=== PATIENT | female | born 1975 | race Caucasian/White ===

== ENCOUNTER 2016-12-19 16:02 | Emergency (ER) | payer MEDICARE, MEDICAID ==
[2016-12-19] MEDS ORDERED: Metoclopramide 10 MG/2 ML SDV IVPUSH ONE (16:23)
[2016-12-19] MEDS ORDERED: Ketorolac 30 MG/ML SDV IVPUSH ONE (16:23)
[2016-12-19] MEDS ORDERED: Sodium Chloride 0.9% 1,000 ML IV ONE (16:23)
--- NOTE | 2016-12-19 16:36 | EDM.PDOC ---
ED HPI HEADACHE COMPLAINT - General Chief Complaint: Headache Stated Complaint: ALTAGRACIA MCARTHUR Time Seen by Provider: 12/19/16 16:20 Source of Information: Reports: Patient History Limitations: Reports: No limitations - History of Present Illness INITIAL COMMENTS - FREE TEXT/NARRATIVE: This 41 yo female patient reported to the ED with a migraine headache and numerous abscesses. The patient reports she has been seen by Dr. Ramírez for the abscesses about 1 week ago. The patient reports she has had some testing done by neurology, but she has not seen a neurologist for her migraine headaches. The patient reports she has an appointment with neurology on . The patient reports she has not eaten today. The patient reports she took a [place] this morning, but has continued to have a headache. The patient reports she has been seen for her abscesses by dermatology, but they are not helping her. 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) ([place]) - Related Data Allergies/ADRs: Allergies Allergy/AdvReac Type Severity Reaction Status Date / Time diphenhydramine HCl Allergy Anxiety Verified 12/19/16 16:08 [From Benadryl] penicillin Allergy Airway Verified 12/19/16 16:08 Tightness Home Meds: Home Meds ALPRAZolam [Xanax] 2 mg PO TID PRN 06/03/15 [History] metFORMIN [Glucophage] 1,000 mg PO BID 06/03/15 [History] Sertraline HCl [Zoloft] 150 mg PO DAILY 01/11/16 [History] Insulin Regular, Human [HumuLIN R] 0.2 mm SQ TID 02/12/16 [History] Cyclobenzaprine [Flexeril] 10 mg PO Q8H PRN 12/19/16 [History] Hydrocodone/Acetaminophen [Hydrocodon-Acetaminophen 5-325] 1 tab PO Q8H PRN [History] Past Medical History - Past Health History Medical/Surgical History: Denies Medical/Surgical History HEENT History: Reports: None Cardiovascular History: Reports: Hypertension Respiratory History: Reports: Intubation, previous Gastrointestinal History: Reports: Cholelithiasis, Other (see below) Other Gastrointestinal History: liver abscess Genitourinary History: Reports: Diabetic nephropathy 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 Musculoskeletal History: Reports: Fibromyalgia Neurological History: Reports: Migraines, Vertigo Psychiatric History: Reports: Anxiety, Depression, Panic attack Endocrine/Metabolic History: Reports: Diabetes, type II, IDDM, Obesity/BMI 30+, Other (see below) Other Endocrine/Metabolic History: Is on UV insulin bid. does not know the exact name. Hematologic History: Reports: None Immunologic History: Reports: None Oncologic (Cancer) History: Reports: None Dermatologic History: Reports: Cellulitis, Other (see below) Other Dermatologic History: skin abscess. hidradanitis suppurtiva - Infectious Disease History Infectious Disease History: Reports: MRSA - Past Surgical History HEENT Surgical History: Reports: None GI Surgical History: Reports: Cholecystectomy Female Surgical History: Reports: Hysterectomy Social & Family History - Family History Family Medical History: Noncontributory Cardiac: Reports: Hypertension Other Cardiac Family History: Mother Respiratory: Reports: COPD Other Respiratory Family Hisory: Mother OBGYN: Reports: Endometriosis Other OBGYN Family History: Mother Endocrine/Metabolic: Reports: Diabetes, type II Other Endocrine/Metabolic Family History: mother - Tobacco Use Smoking Status *Q: Current Every Day Smoker Years of Tobacco use: 30 Packs/Tins Daily: 1 Used Tobacco, but Quit: No Second Hand Smoke Exposure: Yes - Caffeine Use Caffeine Use: Reports: Coffee, Soda - Recreational Drug Use Recreational Drug Use: No - Sexual History Sexual History: Reports: Sexually active - Living Situation & Occupation Living situation: Reports: , with family Occupation: unemployed ED ROS GENERAL - Review of Systems Review Of Systems: ROS reveals no pertinent complaints other than HPI. - Physical Exam Exam: See Below Exam Limited By: No limitations General Appearance: alert, WD/WN, moderate distress Eye Exam: bilateral eye: EOMI, normal inspection, PERRL Ears: normal external exam, normal canal, hearing grossly normal, normal TMs Nose: normal inspection, normal mucosa, no blood Throat/Mouth: Normal inspection, Normal lips, Normal teeth, Normal gums, Normal oropharynx, Normal voice, No airway compromise Head Exam: atraumatic Neck: normal inspection, supple, non-tender, full range of motion Respiratory/Chest: no respiratory distress, lungs clear, normal breath sounds, no accessory muscle use, chest non-tender Cardiovascular: normal peripheral pulses, regular rate, rhythm, no edema, no gallop, no JVD, no murmur, no rub GI/Abdominal: normal bowel sounds, soft, non tender, no organomegaly, no distention, no abnormal bruit, no mass, other (morbid obesity) (Female) Exam: Deferred Rectal (Female) Exam: Deferred Neuro Exam (Abbreviated): alert, oriented, CN II-XII intact, normal cognition, normal gait, normal reflexes, no motor/sensory deficits Extremities: normal inspection, normal range of motion, non-tender, no pedal edema, normal capillary refill Psychiatric: normal affect, normal mood Course - Vital Signs Last Recorded V/S: Last Vital Signs Temp 37.2 C 12/19/16 16:17 Pulse 101 H 12/19/16 16:17 Resp BP Pulse Ox - Orders/Labs/Meds Orders: Active Orders 24 hr Category Date Time Status Sodium Chloride 0.9% [Normal Saline] 1,000 ml Med 12/19/16 16:23 Active IV .BOLUS Medication Orders Sodium Chloride (Normal Saline) 1,000 mls @ 999 mls/hr IV .BOLUS ONE Stop: 12/19/16 17:23 Last Admin: 12/19/16 16:46 Dose: 999 mls/hr Meds: Medications Generic Name Dose Route Start Last Admin Trade Name Freq PRN Reason Stop Dose Admin Sodium Chloride 1,000 mls @ 999 mls/hr 12/19/16 16:23 12/19/16 16:46 Normal Saline IV 12/19/16 17:23 999 mls/hr .BOLUS ONE Administration Discontinued Medications Generic Name Dose Route Start Last Admin Trade Name Freq PRN Reason Stop Dose Admin Ketorolac Tromethamine 30 mg 12/19/16 16:23 12/19/16 16:47 Toradol IVPUSH 12/19/16 16:24 30 mg ONETIME ONE Administration Metoclopramide HCl 10 mg 12/19/16 16:23 12/19/16 16:46 Reglan IVPUSH 12/19/16 16:24 10 mg ONETIME ONE Administration - Re-Assessments/Exams Free Text/Narrative Re-Assessment/Exam: 12/19/16 17:21 The patient reports her headache is better with the fluid, Reglan and Toradol. Departure - Departure Time of Disposition: 17:22 Disposition: Home, Self-Care 01 Condition: fair Clinical Impression: Migraine Instructions: Recurrent Migraine Headache, [id number] Forms: ED Department Discharge Care Plan Goals: The patient was advised of the examination results during the visit. The patient was given a liter of IV fluid, IV Reglan and IV Toradol for migraine relief. The patient was encouraged to continue to take her prescription medications as prescribed. If the patient has any additional symptoms or concerns, the patient should follow-up with her primary care facility or return to the emergency department. - My Orders Last 24 Hours: My Active Orders 12/19/16 16:23 Sodium Chloride 0.9% [Normal Saline] 1,000 ml IV .BOLUS - Assessment/Plan Last 24 Hours: My Active Orders 12/19/16 16:23 Sodium Chloride 0.9% [Normal Saline] 1,000 ml IV .BOLUS
== END 2016-12-19 17:39 | disposition home or self-care (01) ==
LOC: DL.ED 16:02
DX: G43.909 Migraine, unspecified, not intractable, without status migrainosus (principal); I10 Essential (primary) hypertension; E11.21 Type 2 diabetes mellitus with diabetic nephropathy; F41.9 Anxiety disorder, unspecified; F32.9 Major depressive disorder, single episode, unspecified; E66.9 Obesity, unspecified; F17.210 Nicotine dependence, cigarettes, uncomplicated; Z79.4 Long term (current) use of insulin; Z79.84 Long term (current) use of oral hypoglycemic drugs; Z90.49 Acquired absence of other specified parts of digestive tract; Z90.710 Acquired absence of both cervix and uterus; Z88.0 Allergy status to penicillin
CPT/HCPCS: 96361; 96374; 96375; 99282; J1885; J2765; J7030; 99284

== ENCOUNTER 2017-02-15 17:27 | Emergency (ER) | payer MEDICARE, MEDICAID ==
[~2017-02-15 17:27] MED LIST: Lidocaine 2% Viscous Solution 15 ML Cup PO ONE
[2017-02-15 17:58] VITALS: BP 104/87
[2017-02-15] MEDS ORDERED: Lidocaine 2% Viscous Solution 15 ML Cup ONE (19:03)
--- NOTE | 2017-02-15 19:05 | EDM.PDOC ---
ED HPI ENT - General Chief Complaint: ENT Problem Stated Complaint: MOUTH PAIN GOING UP INTO NASALS Time Seen by Provider: 02/15/17 18:58 Source of Information: Reports: Patient History Limitations: Reports: No limitations - History of Present Illness INITIAL COMMENTS - FREE TEXT/NARRATIVE: c/o pain in nose and tooth pain. been to [facility] gotten hydrocodone for 28 days on 01-31-17. states doesn;t want pain meds but wants something for the pain. suggested viscous lido' to Pt. - Related Data Allergies/ADRs: Allergies Allergy/AdvReac Type Severity Reaction Status Date / Time bee venom protein (honey bee) Allergy Airway Verified 02/15/17 17:50 Tightness diphenhydramine HCl Allergy Anxiety Verified 12/19/16 16:08 [From Benadryl] penicillin Allergy Airway Verified 12/19/16 16:08 Tightness Home Meds: Home Meds ALPRAZolam [Xanax] 2 mg PO TID PRN 06/03/15 [History] Sertraline HCl [Zoloft] 200 mg PO BEDTIME 01/11/16 [History] Cyclobenzaprine [Flexeril] 10 mg PO Q8H PRN 12/19/16 [History] Hydrocodone/Acetaminophen [Hydrocodon-Acetaminophen 5-325] 1 tab PO TID PRN [History] Fluconazole [Diflucan 10 MG/ML Susp] 10 mg PO .3DAYS PRN 02/15/17 [History] Ibuprofen 800 mg PO Q8HR PRN 02/15/17 [History] Non-Formulary Medication [NF Drug] 1.5 ml SQ TID 02/15/17 [History] Past Medical History - Past Health History Medical/Surgical History: Denies Medical/Surgical History HEENT History: Reports: Other (see below) Other HEENT History: astygmatisum Cardiovascular History: Reports: Hypertension Respiratory History: Reports: Bronchitis, recurrent, Intubation, previous Gastrointestinal History: Reports: Cholelithiasis, Other (see below) Other Gastrointestinal History: liver abscess Genitourinary History: Reports: Diabetic nephropathy 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 Musculoskeletal History: Reports: Fibromyalgia Neurological History: Reports: Migraines, Vertigo Psychiatric History: Reports: Anxiety, Depression, Panic attack Endocrine/Metabolic History: Reports: Diabetes, type II, IDDM, Obesity/BMI 30+, Other (see below) Other Endocrine/Metabolic History: Is on UV insulin bid. does not know the exact name. Hematologic History: Reports: None Immunologic History: Reports: None Oncologic (Cancer) History: Reports: None Dermatologic History: Reports: Cellulitis, Other (see below) Other Dermatologic History: skin abscess. hidradanitis suppurtiva - Infectious Disease History Infectious Disease History: Reports: Chicken pox, MRSA - Past Surgical History GI Surgical History: Reports: Cholecystectomy Female Surgical History: Reports: Hysterectomy Social & Family History - Family History Family Medical History: Noncontributory Cardiac: Reports: Hypertension Other Cardiac Family History: Mother Respiratory: Reports: COPD Other Respiratory Family Hisory: Mother OBGYN: Reports: Endometriosis Other OBGYN Family History: Mother Endocrine/Metabolic: Reports: Diabetes, type II Other Endocrine/Metabolic Family History: mother - Tobacco Use Smoking Status *Q: Current Every Day Smoker Years of Tobacco use: 30 Packs/Tins Daily: 1 Used Tobacco, but Quit: No Second Hand Smoke Exposure: Yes - Caffeine Use Caffeine Use: Reports: Coffee, Soda - Recreational Drug Use Recreational Drug Use: No - Sexual History Sexual History: Reports: Sexually active - Living Situation & Occupation Living situation: Reports: , with family Occupation: unemployed ED ROS ENT - Review of Systems Review Of Systems: ROS reveals no pertinent complaints other than HPI. ED EXAM, ENT - Physical Exam Exam: See Below Exam Limited By: No limitations General Appearance: alert, WD/WN, mild distress, other (tooth & nose pain) Ears: hearing grossly normal Nose: other (right nostril small boil @ entrance. no cellulitis noted) Mouth/Throat: Dental pain, Dental tenderness Head: atraumatic Neck: non-tender, full range of motion Respiratory/Chest: no respiratory distress Cardiovascular: regular rate, rhythm GI/Abdominal: soft, non tender Neurological: alert, oriented, normal cognition, normal gait, no motor/sensory deficits Psychiatric: flat affect Skin: Warm, Dry Lymphatic: no adenopathy Course - Vital Signs Last Recorded V/S: Last Vital Signs Temp 36.8 C 02/15/17 17:54 Pulse 92 02/15/17 17:54 Resp 20 02/15/17 17:54 BP 104/87 02/15/17 17:54 Pulse Ox 100 02/15/17 17:54 Departure - Departure Time of Disposition: 19:01 Disposition: Home, Self-Care 01 Condition: good Clinical Impression: Boil, nose, Tooth decay Instructions: Dental Caries, [id number] Forms: ED Department Discharge Additional Instructions: 1) continue pain meds 2) follow up with dentist and clinic 3) avoid solid foods, candies, sodas rx togo: viscous lidocaine apply prn rx given: clindamycin 150mg qid x 40
== END 2017-02-15 19:12 | disposition home or self-care (01) ==
LOC: DL.ED 17:27
DX: K02.9 Dental caries, unspecified (principal); J34.0 Abscess, furuncle and carbuncle of nose; I10 Essential (primary) hypertension; E11.21 Type 2 diabetes mellitus with diabetic nephropathy; F41.9 Anxiety disorder, unspecified; F32.9 Major depressive disorder, single episode, unspecified; E66.9 Obesity, unspecified; F17.210 Nicotine dependence, cigarettes, uncomplicated; Z91.030 Bee allergy status; Z88.0 Allergy status to penicillin; Z88.8 Allergy status to other drugs, medicaments and biological substances; Z79.899 Other long term (current) drug therapy; Z90.49 Acquired absence of other specified parts of digestive tract; Z90.710 Acquired absence of both cervix and uterus; Z98.51 Tubal ligation status
CPT/HCPCS: 99282; 99283; A9270-GY

== ENCOUNTER 2017-04-08 17:03 | Emergency (ER) | payer MEDICARE, MEDICAID ==
[2017-04-08 17:15] VITALS: BP 143/70
--- NOTE | 2017-04-08 17:46 | EDM.PDOC ---
ED HPI GENERAL MEDICAL PROBLEM - General Chief Complaint: Skin Complaint Stated Complaint: ABSCESS ON HEAD Time Seen by Provider: 04/08/17 17:40 Source of Information: Reports: Patient History Limitations: Reports: No Limitations - History of Present Illness INITIAL COMMENTS - FREE TEXT/NARRATIVE: Pt states that she has had an "abscess" to her head for the past week. States that she was being treated for multiple abscesses. c/o pain to the right side of her face and "twitching" of her right eye. denies other pain elsewhere Onset Date: 04/02/17 Duration: Getting Worse Location: Reports: Face Quality: Reports: Ache, Burning, Throbbing Severity: Severe Improves with: Reports: None Worsens with: Reports: Movement Right Face Pain Score (Numeric/FACES): 7 - Related Data Allergies Allergy/AdvReac Type Severity Reaction Status Date / Time bee venom protein (honey bee) Allergy Airway Verified 04/08/17 17:08 Tightness diphenhydramine HCl Allergy Anxiety Verified 04/08/17 17:08 [From Benadryl] penicillin Allergy Airway Verified 04/08/17 17:08 Tightness Home Meds: Home Meds ALPRAZolam [Xanax] 2 mg PO TID PRN 06/03/15 [History] Sertraline HCl [Zoloft] 200 mg PO BEDTIME 01/11/16 [History] Cyclobenzaprine [Flexeril] 10 mg PO Q8H PRN 12/19/16 [History] Hydrocodone/Acetaminophen [Hydrocodon-Acetaminophen 5-325] 1 tab PO TID PRN [History] Ibuprofen 800 mg PO Q8HR PRN 02/15/17 [History] Adalimumab [Humira] 04/08/17 [History] Adalimumab [Humira] 40 mg WEEKLY 04/08/17 [History] Gabapentin [Gabapentin] 04/08/17 [History] Insulin Regular, Human [Humulin R] 04/08/17 [History] Minocycline [Minocin] 100 mg PO BID 04/08/17 [History] Past Medical History - Past Health History Medical/Surgical History: Denies Medical/Surgical History HEENT History: Reports: Other (See Below) Other HEENT History: astygmatisum Cardiovascular History: Reports: Hypertension Respiratory History: Reports: Bronchitis, Recurrent, Intubation, Previous Gastrointestinal History: Reports: Cholelithiasis Other Gastrointestinal History: liver abscess Genitourinary History: Reports: Diabetic Nephropathy 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 Musculoskeletal History: Reports: Fibromyalgia Neurological History: Reports: Migraines, Vertigo Psychiatric History: Reports: Anxiety, Depression, Panic Attack Endocrine/Metabolic History: Reports: Diabetes, Type II, IDDM, Obesity/BMI 30+, Other (See Below) Other Endocrine/Metabolic History: Is on UV insulin bid. does not know the exact name. Hematologic History: Reports: None Immunologic History: Reports: None Oncologic (Cancer) History: Reports: None Dermatologic History: Reports: Cellulitis, Other (See Below) Other Dermatologic History: skin condition - Infectious Disease History Infectious Disease History: Reports: Chicken Pox, MRSA - Past Surgical History GI Surgical History: Reports: Cholecystectomy Female Surgical History: Reports: Hysterectomy Social & Family History - Family History Family Medical History: Noncontributory Cardiac: Reports: Hypertension Other Cardiac Family History: Mother Respiratory: Reports: COPD Other Respiratory Family Hisory: Mother OBGYN: Reports: Endometriosis Other OBGYN Family History: Mother Endocrine/Metabolic: Reports: Diabetes, type II Other Endocrine/Metabolic Family History: mother - Tobacco Use Smoking Status *Q: Current Every Day Smoker Years of Tobacco use: 25 Packs/Tins Daily: 1 Used Tobacco, but Quit: No Second Hand Smoke Exposure: Yes - Caffeine Use Caffeine Use: Reports: Coffee, Soda - Recreational Drug Use Recreational Drug Use: No - Sexual History Sexual History: Reports: Sexually Active - Living Situation & Occupation Living situation: Reports: , with Family Occupation: Unemployed ED ROS GENERAL - Review of Systems Review Of Systems: See Below Skin: Reports: Erythema, Lesions (scab to right forehead at hair line) ED EXAM, SKIN/RASH Exam: See Below Exam Limited By: No Limitations General Appearance: Alert, WD/WN, No Apparent Distress Eye Exam: Bilateral Eye: Normal Inspection, PERRL Ears: Normal External Exam, Normal Canal, Hearing Grossly Normal, Other ( effusion r ear) Nose: Normal Inspection, Normal Mucosa, No Blood Throat/Mouth: Normal Inspection, Normal Lips, Normal Teeth, Normal Gums, Normal Oropharynx, Normal Voice, No Airway Compromise Head: Facial Swelling Neck: Normal Inspection Respiratory/Chest: No Respiratory Distress, Lungs Clear, Normal Breath Sounds, No Accessory Muscle Use, Chest Non-Tender Neurological: Alert, Oriented, CN II-XII Intact, Normal Cognition, Normal Gait, Normal Reflexes, No Motor/Sensory Deficits Skin: Warm, Dry, Erythema, Wound/Incision Associated features: Tenderness, Induration, Inflammation, Crusting Course - Vital Signs Last Recorded V/S: Last Vital Signs Temp 97.9 F 04/08/17 17:13 Pulse 88 04/08/17 17:13 Resp 18 04/08/17 17:13 BP 143/70 H 04/08/17 17:13 Pulse Ox 100 04/08/17 17:13 Departure - Departure Time of Disposition: 17:54 Disposition: Home, Self-Care 01 Condition: Good Clinical Impression: Trigeminal neuralgia of right side of face - Discharge Information Instructions: Trigeminal Neuralgia Forms: ED Department Discharge Additional Instructions: Take the medication as prescribed twice daily. Take the hydrocodone no more than 4 times a day with this new medication. Follow up with your PCP in 1 week. Return sooner for any worsening symptoms.
[2017-04-08] MEDS ORDERED: Acetaminophen/HYDROcodone 325-5 MG Tab PO ONE (17:53)
== END 2017-04-08 18:06 | disposition home or self-care (01) ==
LOC: DL.ED 17:03
DX: G50.0 Trigeminal neuralgia (principal); I10 Essential (primary) hypertension; E11.21 Type 2 diabetes mellitus with diabetic nephropathy; G43.909 Migraine, unspecified, not intractable, without status migrainosus; F41.9 Anxiety disorder, unspecified; F32.9 Major depressive disorder, single episode, unspecified; E11.9 Type 2 diabetes mellitus without complications; E66.9 Obesity, unspecified; Z90.710 Acquired absence of both cervix and uterus; Z91.030 Bee allergy status; Z88.0 Allergy status to penicillin; Z88.8 Allergy status to other drugs, medicaments and biological substances; Z79.4 Long term (current) use of insulin; Z79.899 Other long term (current) drug therapy; Z90.49 Acquired absence of other specified parts of digestive tract
CPT/HCPCS: 99283; A9270

== ENCOUNTER 2017-04-09 10:56 | Inpatient (IN) | payer MEDICARE, MEDICAID ==
[2017-04-09] MEDS ORDERED: Acetaminophen/HYDROcodone 325-10 MG Tab PO PRN (12:45)
--- NOTE | 2017-04-09 12:59 | PCM.HP ---
H&P History of Present Illness - General Date of Service: 04/09/17 Admit Problem/Dx: Admission Diagnosis/Problem Admission Diagnosis/Problem Periorbital cellulitis Source of Information: Patient History Limitations: Reports: No Limitations - History of Present Illness Initial Comments - Free Text/Narative: 42-year-old female was best medical history of MRSA, Hidradenitis suppurativa, fibroplasia, diabetes mellitus type 2, nicotine abuse, panic attacks, migraine, liver abscesses presented to the hospital from clinic for having periorbital colitis on the right side. Patient stated that 10 days ago she was having about 10 boils in her body located under her left breast, gluteal area, going area, abdomen. On 04/04/17 patient developed a pimple on the right frontal scalp. She squeezed it and get some pus out. 3 days later she started having swelling or owns a pimple. Patient was having drainage from the above-mentioned boils on the body. The swelling spread about the right eye and started having pain on the right forehead, face, and jaw. She denies fever, chills, sweats, nausea, vomiting, chest pain, cough, shortness breath, abdominal pain, urinary symptoms , any other symptoms or concerns. No blood work was done at the clinic today but on 04/06/2017, at that time CBC was normal. Glucose was 419. Creatinine 0.8. Hemoglobin A1c 10.7. Patient stated that it's difficult for her to have IV insertion and her IVs do not tolerate regular infusion so she usually into up having PICC line. She was started on Humira few weeks ago and last week she had her third dose. She is on chronic antibiotics for her Hidradenitis suppurativa. Her oral clindamycin was changed a few weeks ago to oral minocycline 50 mg twice a day and one week ago was increased to 100 mg twice a day. Patient stated that she has pain was right eye motion but denies vision change. Face Pain Score (Numeric/FACES): 9 - Related Data Allergies/Adverse Reactions: Allergies Allergy/AdvReac Type Severity Reaction Status Date / Time bee venom protein (honey bee) Allergy Airway Verified 04/09/17 11:23 Tightness diphenhydramine HCl Allergy Anxiety Verified 04/09/17 11:23 [From Benadryl] penicillin Allergy Airway Verified 04/09/17 11:23 Tightness Home Medications: Home Meds ALPRAZolam [Xanax] 2 mg PO TID PRN 06/03/15 [History] Sertraline HCl [Zoloft] 200 mg PO BEDTIME 01/11/16 [History] Cyclobenzaprine [Flexeril] 10 mg PO Q8H PRN 12/19/16 [History] Hydrocodone/Acetaminophen [Hydrocodon-Acetaminophen 5-325] 1 tab PO TID PRN [History] Ibuprofen 800 mg PO Q8HR PRN 02/15/17 [History] Adalimumab [Humira] 40 mg WEEKLY 04/08/17 [History] Gabapentin 300 mg PO DAILY 04/08/17 [History] Insulin Regular, Human [Humulin R] 0.25 ml SUBCUT BIDMEALS 04/08/17 [History] Minocycline [Minocin] 100 mg PO BID 04/08/17 [History] Acetaminophen [Acetaminophen Extra Strength] 1,000 mg PO Q6H PRN 04/09/17 [ History] Clindamycin Phosphate [Cleocin T] 1 applic TP BID 04/09/17 [History] Fluconazole [Diflucan] 150 mg PO Q72H 04/09/17 [History] metFORMIN [Glucophage] 1,000 mg PO BIDMEALS 04/09/17 [History] Past Medical History - Past Health History Medical/Surgical History: Denies Medical/Surgical History HEENT History: Reports: Other (See Below) Other HEENT History: astygmatism Cardiovascular History: Reports: None Respiratory History: Reports: Bronchitis, Recurrent Gastrointestinal History: Reports: Cholelithiasis Other Gastrointestinal History: liver abscess x5 Genitourinary History: Reports: Diabetic Nephropathy 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 Musculoskeletal History: Reports: Fibromyalgia Neurological History: Reports: Migraines, Neuropathy, Diabetic, Neuropathy, Peripheral, Vertigo Psychiatric History: Reports: Anxiety, Depression, Panic Attack Endocrine/Metabolic History: Reports: Diabetes, Type II, IDDM, Obesity/BMI 30+, Other (See Below) Other Endocrine/Metabolic History: Is on UV insulin bid. does not know the exact name. Hematologic History: Reports: None, Blood Transfusion(s) Immunologic History: Reports: None Oncologic (Cancer) History: Reports: None Dermatologic History: Reports: Cellulitis, Other (See Below) Other Dermatologic History: skin condition - Infectious Disease History Infectious Disease History: Reports: MRSA - Past Surgical History GI Surgical History: Reports: Cholecystectomy Female Surgical History: Reports: Hysterectomy Social & Family History - Family History Family Medical History: Noncontributory Cardiac: Reports: Hypertension Other Cardiac Family History: Mother Respiratory: Reports: COPD Other Respiratory Family Hisory: Mother OBGYN: Reports: Endometriosis Other OBGYN Family History: Mother Endocrine/Metabolic: Reports: Diabetes, type II Other Endocrine/Metabolic Family History: mother - Tobacco Use Smoking Status *Q: Current Every Day Smoker Years of Tobacco use: 30 Packs/Tins Daily: 1 Used Tobacco, but Quit: No Second Hand Smoke Exposure: Yes - Caffeine Use Caffeine Use: Reports: Coffee, Soda - Recreational Drug Use Recreational Drug Use: No - Sexual History Sexual History: Reports: Sexually Active - Living Situation & Occupation Living situation: Reports: , with Family Occupation: Unemployed H&P Review of Systems - Review of Systems: Review Of Systems: See Below General: Reports: No Symptoms HEENT: Reports: Headaches. Denies: Ear Pain, Eye Pain, Rhinitis, Post Nasal Drip, Sinus Congestion, Sore Throat, Visual Changes Pulmonary: Reports: No Symptoms Cardiovascular: Reports: No Symptoms Gastrointestinal: Reports: No Symptoms Genitourinary: Reports: No Symptoms Musculoskeletal: Reports: No Symptoms Skin: Denies: Cyanosis, Jaundice, Pruritis Psychiatric: Reports: No Symptoms Neurological: Reports: No Symptoms Hematologic/Lymphatic: Reports: No Symptoms Immunologic: Reports: No Symptoms Exam - Exam Exam: See Below - Vital Signs Weight: 124.103 kg - Exam General: Alert, Oriented HEENT: Conjunctiva Clear, EACs Clear, EOMI, Hearing Intact, Mucosa Moist & [place] , Nares Patent, Normal Nasal Septum, Posterior Pharynx Clear, Pupils Equal, Pupils Reactive, TMs Clear, Other (Right frontal scalp shows scabbed erythematous area surrounded with swelling extending to the right eyebrow was markedly tenderness. There is tenderness as well above the right maxillary sinus.). No: Scleral Icterus Neck: Supple, Trachea Midline Lungs: Clear to Auscultation, Normal Respiratory Effort Cardiovascular: Regular Rate, Regular Rhythm Abdomen: Normal Bowel Sounds, Soft, Pelvis Stable (Female) Exam: Deferred Rectal (Female) Exam: Deferred Back Exam: Normal Inspection, Full Range of Motion Extremities: Normal Inspection, Normal Pulses. No: Cyanosis, Edema Skin: Other (Multiple scarring lesions with sporadic induration under left breast, left gluteal area, pubic area. There was some purulent drainage from the boil under the left breast. However I did not appreciate surrounding cellulitis) *Q Meaningful Use (ADM) - VTE *Q VTE Criteria *Q: - Stroke *Q Stroke Criteria *Q: - AMI *Q AMI Criteria *Q: - Problem List (1) Fibromyalgia SNOMED Code(s): 261698311 ICD Code: M79.7 - FIBROMYALGIA Status: Chronic Current Visit: Yes (2) Periorbital cellulitis of right eye SNOMED Code(s): 361500571 ICD Code: L03.213 - PERIORBITAL CELLULITIS Status: Acute Priority: High Current Visit: Yes (3) Hidradenitis suppurativa SNOMED Code(s): 63851531 ICD Code: L73.2 - HIDRADENITIS SUPPURATIVA Status: Acute Current Visit: No (4) Migraine SNOMED Code(s): 11255119 ICD Code: G43.909 - MIGRAINE, UNSP, NOT INTRACTABLE, WITHOUT STATUS MIGRAINOSUS Status: Chronic Current Visit: No Qualifiers: Migraine type: unspecified Status migrainosus presence: with status migrainosus Intractability: intractable Qualified Code(s): G43.911 - Migraine, unspecified, intractable, with status migrainosus (5) Uncontrolled type 2 diabetes mellitus SNOMED Code(s): 61555251, 667031427 ICD Code: E11.65 - TYPE 2 DIABETES MELLITUS WITH HYPERGLYCEMIA Status: Chronic Current Visit: No Problem List Initiated/Reviewed/Updated: Yes Orders Last 24hrs: Active Orders 24 hr Category Date Time Status Patient Status [ADT] Routine ADT 04/09/17 12:49 Ordered Oxygen Therapy [RC] PRN Care 04/09/17 12:49 Ordered VTE/DVT Education [RC] PER UNIT ROUTINE Care 04/09/17 12:49 Ordered Vital Signs [RC] Q4H Care 04/09/17 12:49 Ordered Acetaminophen/HYDROcodone [[place] 325-10 MG] Med 04/09/17 12:45 Ordered 1 tab PO Q4H PRN Resuscitation Status Routine Resus Stat 06/19/17 12:49 Ordered Medication Orders Hydrocodone Bitart/Acetaminophen ([place] 325-10 Mg) 1 tab PO Q4H PRN PRN Reason: Pain Assessment/Plan Comment:: Right periorbital cellulitis Considering patient history of diabetes mellitus, being on Humira, being already on oral antibiotics, having difficulty IV access and possibly the need for PICC line and prolonged IV antibiotic, I recommended being transferred to [facility] where she can have specialist/infectious disease seen here and possibly having PICC line there. At this time I do not appreciate sepsis sign so I deferred giving any antibiotics until being evaluated at [facility] The rest of her problem list to be addressed at [facility] Patient was accepted kindly by Dr. Phelps. It is okay transferring by private car however I stressed that she needs to go right away to [facility] hops[facility] otherwise we will can send her by ambulance. Patient and her significant other stressed they are going to get their by their car without delay.
[2017-04-09 13:08] VITALS: BP 115/77
== END 2017-04-09 14:00 | DRG 603 ==
LOC: UNDOADMIN 10:56 → DL.MS 10:56 → EEVIPCON 12:49 → DL.MS 12:49
PROVIDERS: ADMIT Family Medicine; ATTEND Family Medicine
DX: L03.213 Periorbital cellulitis (principal); M79.7 Fibromyalgia; L73.2 Hidradenitis suppurativa; G43.911 Migraine, unspecified, intractable, with status migrainosus; E11.65 Type 2 diabetes mellitus with hyperglycemia; E11.40 Type 2 diabetes mellitus with diabetic neuropathy, unspecified; F17.200 Nicotine dependence, unspecified, uncomplicated; F41.8 Other specified anxiety disorders; Z88.0 Allergy status to penicillin; Z88.8 Allergy status to other drugs, medicaments and biological substances; Z79.899 Other long term (current) drug therapy; Z79.4 Long term (current) use of insulin
CPT/HCPCS: A9270-GY

== ENCOUNTER 2017-07-04 19:48 | Emergency (ER) | payer MEDICARE, MEDICAID ==
[2017-07-04] MEDS ORDERED: Clindamycin HCl 150 MG Cap PO ONE (20:16)
[2017-07-04 21:05] VITALS: BP 113/85
[2017-07-04 21:08] LABS: CHLORIDE,CL 98 mmol/L (101-111); SODIUM,NA 133 mmol/L (135-145)
[2017-07-04] MEDS ORDERED: Insulin Regular, Human 100 Units/ML 3 ML Vial SUBCUT ONE (21:15)
--- NOTE | 2017-07-04 21:24 | EDM.PDOC ---
ED HPI GENERAL MEDICAL PROBLEM - General Chief Complaint: Lower Extremity Injury/Pain Stated Complaint: RIGHT TOE SWOLLEN AND HURTS UP FOOT [id number] Time Seen by Provider: 07/04/17 20:00 Source of Information: Reports: Patient History Limitations: Reports: No Limitations - History of Present Illness INITIAL COMMENTS - FREE TEXT/NARRATIVE: C/o pain to right great toe. Pedicure on Sunday, increasing pain to toe now today with redness pain in forefoot and drainage noted aroun nail. Diabetic, noting blood sugars for past 2 days have been 300-400 and had been recently controlled in 100-200 range. Hx MRSA. Location: Reports: Lower Extremity, Right Quality: Reports: Throbbing Severity: Moderate - Related Data Allergies Allergy/AdvReac Type Severity Reaction Status Date / Time bee venom protein (honey bee) Allergy Airway Verified 07/04/17 20:00 Tightness diphenhydramine HCl Allergy Anxiety Verified 07/04/17 20:00 [From Benadryl] penicillin Allergy Airway Verified 07/04/17 20:00 Tightness Home Meds: Home Meds ALPRAZolam [Xanax] 2 mg PO TID PRN 06/03/15 [History] Sertraline HCl [Zoloft] 200 mg PO BEDTIME 01/11/16 [History] Cyclobenzaprine [Flexeril] 10 mg PO Q8H PRN 12/19/16 [History] Hydrocodone/Acetaminophen [Hydrocodon-Acetaminophen 5-325] 2 tab PO TID PRN [History] Ibuprofen 800 mg PO Q8HR PRN 02/15/17 [History] Adalimumab [Humira] 40 mg SUBCUT WEEKLY 04/08/17 [History] Gabapentin 300 mg PO DAILY 04/08/17 [History] Insulin Regular, Human [Humulin R] See Protocol SUBCUT BIDMEALS 04/08/17 [ History] Acetaminophen [Acetaminophen Extra Strength] 1,000 mg PO Q6H PRN 04/09/17 [ History] Clindamycin Phosphate [Cleocin T] 1 applic TP BID 04/09/17 [History] Fluconazole [Diflucan] 150 mg PO Q72H 04/09/17 [History] metFORMIN [Glucophage] 1,000 mg PO BIDMEALS 04/09/17 [History] Past Medical History - Past Health History Medical/Surgical History: Denies Medical/Surgical History HEENT History: Reports: Other (See Below) Other HEENT History: astygmatism Cardiovascular History: Reports: None Respiratory History: Reports: Bronchitis, Recurrent Gastrointestinal History: Reports: Cholelithiasis Other Gastrointestinal History: liver abscess x5 Genitourinary History: Reports: Diabetic Nephropathy [employer] 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 Patient states she had a hysterectomy Musculoskeletal History: Reports: Fibromyalgia Neurological History: Reports: Migraines, Neuropathy, Diabetic, Neuropathy, Peripheral, Vertigo Psychiatric History: Reports: Anxiety, Depression, Panic Attack Endocrine/Metabolic History: Reports: Diabetes, Type II, IDDM, Obesity/BMI 30+, Other (See Below) Other Endocrine/Metabolic History: Is on UV insulin bid. does not know the exact name. Hematologic History: Reports: None, Blood Transfusion(s) Immunologic History: Reports: None Oncologic (Cancer) History: Reports: None Dermatologic History: Reports: Cellulitis, Other (See Below) Other Dermatologic History: skin condition right forehead and orbital - Infectious Disease History Infectious Disease History: Reports: MRSA - Past Surgical History Respiratory Surgical History: Reports: None GI Surgical History: Reports: Cholecystectomy Female Surgical History: Reports: Hysterectomy Social & Family History - Family History Family Medical History: Noncontributory Cardiac: Reports: Hypertension Other Cardiac Family History: Mother Respiratory: Reports: COPD Other Respiratory Family Hisory: Mother OBGYN: Reports: Endometriosis Other OBGYN Family History: Mother Endocrine/Metabolic: Reports: Diabetes, type II Other Endocrine/Metabolic Family History: mother - Tobacco Use Smoking Status *Q: Current Every Day Smoker Years of Tobacco use: 30 Packs/Tins Daily: 1 Used Tobacco, but Quit: No Second Hand Smoke Exposure: Yes - Caffeine Use Caffeine Use: Reports: Coffee - Recreational Drug Use Recreational Drug Use: No - Sexual History Sexual History: Reports: Sexually Active - Living Situation & Occupation Living situation: Reports: , with Family Occupation: Unemployed Review of Systems - Review of Systems Review Of Systems: ROS reveals no pertinent complaints other than HPI. ED EXAM, GENERAL - Physical Exam Exam: See Below Exam Limited By: No Limitations General Appearance: Alert, Mild Distress, Obese Eye Exam: Bilateral Eye: EOMI Ears: Normal External Exam Nose: Normal Inspection Throat/Mouth: Normal Inspection Head: Atraumatic, Normocephalic Neck: Normal Inspection. No: Lymphadenopathy (L), Lymphadenopathy (R) Respiratory/Chest: No Respiratory Distress, Lungs Clear, Normal Breath Sounds GI/Abdominal: Soft Extremities: No: Normal Inspection (right great toe red swollen, forefoot tender to palpate) Neurological: Alert, Oriented Psychiatric: Normal Affect, Normal Mood Skin Exam: Warm, Erythema, Increased Warmth, Other (right great toe medial distal nailedge with scant diried discharge, area tender to palpate, mikd warmth. Distal toe mild swelling, red, toe to anterior midforefoot lightly pink , no streaking. Pulses present). No: Normal Color Course - Vital Signs Last Recorded V/S: Last Vital Signs Temp 97.0 F 07/04/17 21:04 Pulse 101 H 07/04/17 21:04 Resp 18 07/04/17 21:04 BP 113/85 07/04/17 21:04 Pulse Ox 98 07/04/17 21:04 - Orders/Labs/Meds Labs: Laboratory Tests 07/04/17 07/04/17 07/04/17 Range/Units 20:25 20:25 20:25 WBC 11.3 H (5.0-10.0) 10^3/uL RBC 5.27 (4.2-5.4) 10^6/uL Hgb 14.7 (12.0-16.0) g/dL Hct 43.1 (37.0-47.0) % MCV 81.8 (80-100) fL MCH 27.9 (27.0-34.0) pg MCHC 34.1 (33.0-35.0) g/dL Plt Count 261 (150-450) 10^3/uL Neut % (Auto) 66.8 (42.2-75.2) % Lymph % (Auto) 22.8 (20.5-50.1) % [place] % (Auto) 7.5 (2-8) % Eos % (Auto) 2.7 (1.0-3.0) % Baso % (Auto) 0.2 (0.0-1.0) % Sodium 133 L (135-145) mmol/L Potassium 3.9 (3.6-5.0) mmol/L Chloride 98 L (101-111) mmol/L Carbon Dioxide 22.0 (21.0-31.0) mmol/L Anion Gap 16.9 BUN 14 (7-18) mg/dL Creatinine 0.8 (0.6-1.3) mg/dL Est Cr Clr Drug Dosing 93.78 mL/min Estimated GFR (MDRD) > 60 BUN/Creatinine Ratio 17.50 Glucose 457 H* (74-105) mg/dL Lactic Acid 1.7 (0.5-2.2) mmol/L Calcium 9.3 (8.4-10.2) mg/dl Total Bilirubin 0.6 (0.2-1.0) mg/dL AST 17 (10-42) IU/L ALT 23 (10-60) IU/L Alkaline Phosphatase 162 H (42-121) IU/L Total Protein 7.7 (6.7-8.2) g/dl Albumin 3.5 (3.2-5.5) g/dl Globulin 4.2 Albumin/Globulin Ratio 0.83 Meds: Medications Discontinued Medications Generic Name Dose Route Start Last Admin Trade Name Palomo PRN Reason Stop Dose Admin Clindamycin HCl 300 mg 07/04/17 20:16 07/04/17 20:21 Cleocin PO 07/04/17 20:17 300 mg ONETIME ONE Administration Insulin Human Regular 6 unit 07/04/17 21:15 07/04/17 21:22 Humulin R SUBCUT 07/04/17 21:16 6 units ONETIME ONE Administration Protocol Departure - Departure Time of Disposition: 21:30 Disposition: Home, Self-Care 01 Condition: Fair Clinical Impression: Insulin dependent diabetes mellitus, Hyperglycemia Infected abrasion of great toe of right foot Qualifiers: Encounter type: initial encounter Qualified Code(s): S90.411A - Abrasion, right great toe, initial encounter - Discharge Information Instructions: Ingrown Toenail Forms: ED Department Discharge Additional Instructions: follow up Sunday to recheck toe monitor glucose goal for glucose to be less than 200 if higher in am, contact christ Choudhary NP for insulin recommendations warm soak to toe with antibacterial soap 4 times daily follow up if increasing redness, swelling and discharge keep toe covered with dressing, wear broad toe shoe
== END 2017-07-04 21:30 | disposition home or self-care (01) ==
LOC: DL.ED 19:48
DX: S90.411A Abrasion, right great toe, initial encounter (principal); E11.21 Type 2 diabetes mellitus with diabetic nephropathy; E11.65 Type 2 diabetes mellitus with hyperglycemia; F17.210 Nicotine dependence, cigarettes, uncomplicated; Z91.030 Bee allergy status; Z88.0 Allergy status to penicillin; Z88.8 Allergy status to other drugs, medicaments and biological substances; Z79.4 Long term (current) use of insulin; Z90.49 Acquired absence of other specified parts of digestive tract; Z90.710 Acquired absence of both cervix and uterus; X58.XXXA Exposure to other specified factors, initial encounter
CPT/HCPCS: 36415; 80053; 83605; 85025; 99283; A9270; J1815

== ENCOUNTER 2017-07-28 09:13 | Emergency (ER) | payer MEDICARE, MEDICAID ==
[2017-07-28 09:52] VITALS: BP 113/70
[2017-07-28] MEDS ORDERED: Ketorolac 30 MG/ML SDV IM ONE (10:06)
--- NOTE | 2017-07-28 10:06 | EDM.PDOC ---
ED HPI GENERAL MEDICAL PROBLEM - General Chief Complaint: Lower Extremity Injury/Pain Stated Complaint: FELL AND CAN'T WALK Time Seen by Provider: 07/28/17 10:00 Source of Information: Reports: Patient History Limitations: Reports: No Limitations - History of Present Illness INITIAL COMMENTS - FREE TEXT/NARRATIVE: 42 yo white female c/o of fall last night @ 8pm and now has pain to right lower extremity. Pain greater in area of knee. Pt. admits to taking her narcotic pain medication(percocet) Onset Date: 07/27/17 Onset Time: 20:00 Duration: Hour(s): Location: Reports: Lower Extremity, Right Quality: Reports: Ache Severity: Moderate Improves with: Reports: None Worsens with: Reports: None Context: Reports: Trauma (fall) Associated Symptoms: Reports: No Other Symptoms Right Lower Leg Pain Score (Numeric/FACES): 10 - Related Data Allergies Allergy/AdvReac Type Severity Reaction Status Date / Time bee venom protein (honey bee) Allergy Airway Verified 07/04/17 20:00 Tightness diphenhydramine HCl Allergy Anxiety Verified 07/04/17 20:00 [From Benadryl] penicillin Allergy Airway Verified 07/04/17 20:00 Tightness Home Meds: Home Meds ALPRAZolam [Xanax] 2 mg PO TID PRN 06/03/15 [History] Sertraline HCl [Zoloft] 200 mg PO BEDTIME 01/11/16 [History] Cyclobenzaprine [Flexeril] 10 mg PO Q8H PRN 12/19/16 [History] Hydrocodone/Acetaminophen [Hydrocodon-Acetaminophen 5-325] 2 tab PO TID PRN [History] Ibuprofen 800 mg PO Q8HR PRN 02/15/17 [History] Adalimumab [Humira] 40 mg SUBCUT WEEKLY 04/08/17 [History] Gabapentin 300 mg PO DAILY 04/08/17 [History] Insulin Regular, Human [Humulin R] See Protocol SUBCUT BIDMEALS 04/08/17 [ History] Acetaminophen [Acetaminophen Extra Strength] 1,000 mg PO Q6H PRN 04/09/17 [ History] Clindamycin Phosphate [Cleocin T] 1 applic TP BID 04/09/17 [History] Fluconazole [Diflucan] 150 mg PO Q72H 04/09/17 [History] metFORMIN [Glucophage] 1,000 mg PO BIDMEALS 04/09/17 [History] Past Medical History - Past Health History Medical/Surgical History: Denies Medical/Surgical History HEENT History: Reports: Other (See Below) Other HEENT History: astygmatism Cardiovascular History: Reports: None Respiratory History: Reports: Bronchitis, Recurrent Gastrointestinal History: Reports: Cholelithiasis Other Gastrointestinal History: liver abscess x5 Genitourinary History: Reports: Diabetic Nephropathy 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 Patient states she had a hysterectomy Musculoskeletal History: Reports: Fibromyalgia Neurological History: Reports: Migraines, Neuropathy, Diabetic, Neuropathy, Peripheral, Vertigo Psychiatric History: Reports: Anxiety, Depression, Panic Attack Endocrine/Metabolic History: Reports: Diabetes, Type II, IDDM, Obesity/BMI 30+, Other (See Below) Other Endocrine/Metabolic History: Is on UV insulin bid. does not know the exact name. Hematologic History: Reports: None, Blood Transfusion(s) Immunologic History: Reports: None Oncologic (Cancer) History: Reports: None Dermatologic History: Reports: Cellulitis, Other (See Below) Other Dermatologic History: skin condition right forehead and orbital - Infectious Disease History Infectious Disease History: Reports: MRSA - Past Surgical History Respiratory Surgical History: Reports: None GI Surgical History: Reports: Cholecystectomy Female Surgical History: Reports: Hysterectomy Social & Family History - Family History Family Medical History: Noncontributory Cardiac: Reports: Hypertension Other Cardiac Family History: Mother Respiratory: Reports: COPD Other Respiratory Family Hisory: Mother OBGYN: Reports: Endometriosis Other OBGYN Family History: Mother Endocrine/Metabolic: Reports: Diabetes, type II Other Endocrine/Metabolic Family History: mother - Tobacco Use Smoking Status *Q: Current Every Day Smoker Years of Tobacco use: 30 Packs/Tins Daily: 1 Used Tobacco, but Quit: No Second Hand Smoke Exposure: Yes - Caffeine Use Caffeine Use: Reports: Coffee - Recreational Drug Use Recreational Drug Use: No - Sexual History Sexual History: Reports: Sexually Active - Living Situation & Occupation Living situation: Reports: , with Family Occupation: Unemployed Review of Systems - Review of Systems Review Of Systems: See Below Constitutional: Reports: No Symptoms Eyes: Reports: No Symptoms Ears: Reports: No Symptoms Nose: Reports: No Symptoms Mouth/Throat: Reports: No Symptoms Respiratory: Reports: No Symptoms Cardiovascular: Reports: No Symptoms GI/Abdominal: Reports: No Symptoms Genitourinary: Reports: No Symptoms Musculoskeletal: Reports: Leg Pain (right calf), Joint Pain (right knee) Skin: Reports: No Symptoms Neurological: Reports: No Symptoms Psychiatric: Reports: No Symptoms ED EXAM, GENERAL - Physical Exam Exam: See Below Exam Limited By: No Limitations General Appearance: Alert, No Apparent Distress, Obese Eye Exam: Bilateral Eye: EOMI, PERRL Ears: Normal External Exam Nose: Normal Inspection Throat/Mouth: Normal Inspection, Normal Lips Head: Atraumatic, Normocephalic Neck: Normal Inspection, Supple Respiratory/Chest: No Respiratory Distress, Lungs Clear Cardiovascular: Normal Peripheral Pulses, Regular Rate, Rhythm, No Edema Peripheral Pulses: 2+: Dorsalis Pedis (L), Dorsalis Pedis (R) GI/Abdominal: Normal Bowel Sounds, Soft Back Exam: Normal Inspection Extremities: Normal Inspection, Other (right calf tenderness w/o swelling and w /o bruising) Neurological: Alert, Oriented, CN II-XII Intact, Normal Cognition Psychiatric: Normal Affect Skin Exam: Warm, Dry, Intact, Normal Color, No Rash Lymphatic: No Adenopathy Course - Vital Signs Text/Narrative:: Pt. case and imaging studies reviewed and discussed with Dr. Dunn Orthopedics at [facility] [phone]. Advised to Knee Immobilizer and Crutches and No Weight Bearing and to F/U in One Week. Last Recorded V/S: Last Vital Signs Temp 36.6 C 07/28/17 09:51 Pulse 90 07/28/17 09:51 Resp 16 07/28/17 09:51 BP 113/70 07/28/17 09:51 Pulse Ox 99 07/28/17 09:51 - Orders/Labs/Meds Meds: Medications Discontinued Medications Generic Name Dose Route Start Last Admin Trade Name Palomo PRN Reason Stop Dose Admin Ketorolac Tromethamine 60 mg 07/28/17 10:06 07/28/17 10:35 Toradol IM 07/28/17 10:07 60 mg ONETIME ONE Administration Departure - Departure Time of Disposition: 11:36 Disposition: Home, Self-Care 01 Condition: Fair Clinical Impression: Fracture of tibia - Discharge Information Instructions: Tibial Fracture, Adult, [facility]mty-of-Inct Forms: ED Department Discharge Additional Instructions: Your case was reviewed by Orthopedics Dr. Dunn from [facility] in [place]. [phone] Please wear the Knee Immobilizer and NO WEIGHT BEARING on right leg. USE CRUTCHES when up. F?U w/ Dr. Dunn in one week
--- NOTE | 2017-07-28 10:35 | CR ---
Clinical history: 42-year-old female complaining of right knee pain associated with fall. Interpretation: (3 views) small suprapatellar bursal effusion (internal derangement?). No sign of right knee fracture, dislocation or radiopaque loose joint body. No foreign bodies.
--- NOTE | 2017-07-28 10:37 | CR ---
Clinical history: 42-year-old female with right knee and calf pain associated with fall. Interpretation: Abnormal. Acute nondisplaced cortical fracture proximal diametaphysis medially, right fibula. No sign of other long bone fracture of the right fibula or tibia and no dislocation right knee or ank le joint. No foreign bodies. CONCLUSION: Acute nondisplaced proximal right fibular fracture.
== END 2017-07-28 12:02 | disposition home or self-care (01) ==
LOC: DL.ED 09:13
DX: S82.831A Other fracture of upper and lower end of right fibula, initial encounter for closed fracture (principal); S82.201A Unspecified fracture of shaft of right tibia, initial encounter for closed fracture; E11.42 Type 2 diabetes mellitus with diabetic polyneuropathy; E66.9 Obesity, unspecified; F17.210 Nicotine dependence, cigarettes, uncomplicated; Z90.49 Acquired absence of other specified parts of digestive tract; Z90.710 Acquired absence of both cervix and uterus; Z79.4 Long term (current) use of insulin; Z88.0 Allergy status to penicillin; Z88.8 Allergy status to other drugs, medicaments and biological substances; Z91.030 Bee allergy status; W19.XXXA Unspecified fall, initial encounter
CPT/HCPCS: 73562; 73590; 96372; 99283; J1885

== ENCOUNTER 2017-09-11 01:52 | Emergency (ER) | payer MEDICARE, MEDICAID ==
[2017-09-11] MEDS ORDERED: Ketorolac 30 MG/ML SDV IM ONE (02:51)
[2017-09-11 03:09] LABS: CHLORIDE,CL 103 mmol/L (101-111); SODIUM,NA 136 mmol/L (135-145)
[2017-09-11] MEDS ORDERED: HYDROmorphone 1 MG/ML Syringe IM ONE (03:29)
--- NOTE | 2017-09-11 03:54 | EDM.PDOC ---
ED HPI GENERAL MEDICAL PROBLEM - General Chief Complaint: Chest Pain Stated Complaint: PAIN IN RIGHT SIDE/CHEST [id number] Time Seen by Provider: 09/11/17 02:00 Source of Information: Reports: Patient History Limitations: Reports: No Limitations - History of Present Illness INITIAL COMMENTS - FREE TEXT/NARRATIVE: ED with c/o sever pain on right side of chest underneath breast. Reports pain as feeling deep, hurts worse to take deep breath or to lie down. No nausea with pain. Has tried hydo's and ibuprofen without improvement. Question if pain could be from diagnosis of Chlamydia yesterday. . no fever or chills. Right Chest Pain Score (Numeric/FACES): 8 - Related Data Allergies Allergy/AdvReac Type Severity Reaction Status Date / Time bee venom protein (honey bee) Allergy Airway Verified 09/11/17 02:01 Tightness diphenhydramine HCl Allergy Anxiety Verified 09/11/17 02:01 [From Benadryl] penicillin Allergy Airway Verified 09/11/17 02:01 Tightness Home Meds: Home Meds ALPRAZolam [Xanax] 2 mg PO TID PRN 06/03/15 [History] Sertraline HCl [Zoloft] 200 mg PO BEDTIME 01/11/16 [History] Cyclobenzaprine [Flexeril] 10 mg PO Q8H PRN 12/19/16 [History] Hydrocodone/Acetaminophen [Hydrocodon-Acetaminophen 5-325] 2 tab PO TID PRN [History] Ibuprofen 800 mg PO Q8HR PRN 02/15/17 [History] Adalimumab [Humira] 40 mg SUBCUT WEEKLY 04/08/17 [History] Gabapentin 300 mg PO DAILY 04/08/17 [History] Insulin Regular, Human [Humulin R] See Protocol SUBCUT BIDMEALS 04/08/17 [ History] Acetaminophen [Acetaminophen Extra Strength] 1,000 mg PO Q6H PRN 04/09/17 [ History] Fluconazole [Diflucan] 150 mg PO Q72H 04/09/17 [History] metFORMIN [Glucophage] 1,000 mg PO BIDMEALS 04/09/17 [History] Past Medical History - Past Health History Medical/Surgical History: Denies Medical/Surgical History HEENT History: Reports: Other (See Below) Other HEENT History: astygmatism Cardiovascular History: Reports: None Respiratory History: Reports: Bronchitis, Recurrent Gastrointestinal History: Reports: Cholelithiasis Other Gastrointestinal History: liver abscess x5 Genitourinary History: Reports: Diabetic Nephropathy 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 Patient states she had a hysterectomy Musculoskeletal History: Reports: Fibromyalgia Neurological History: Reports: Migraines, Neuropathy, Diabetic, Neuropathy, Peripheral, Vertigo Psychiatric History: Reports: Anxiety, Depression, Panic Attack Endocrine/Metabolic History: Reports: Diabetes, Type II, IDDM, Obesity/BMI 30+, Other (See Below) Other Endocrine/Metabolic History: Is on UV insulin bid. does not know the exact name. Hematologic History: Reports: None, Blood Transfusion(s) Immunologic History: Reports: None Oncologic (Cancer) History: Reports: None Dermatologic History: Reports: Cellulitis, Other (See Below) Other Dermatologic History: skin condition right forehead and orbital - Infectious Disease History Infectious Disease History: Reports: MRSA - Past Surgical History Respiratory Surgical History: Reports: None GI Surgical History: Reports: Cholecystectomy Female Surgical History: Reports: Hysterectomy Social & Family History - Family History Family Medical History: Noncontributory Cardiac: Reports: Hypertension Other Cardiac Family History: Mother Respiratory: Reports: COPD Other Respiratory Family Hisory: Mother OBGYN: Reports: Endometriosis Other OBGYN Family History: Mother Endocrine/Metabolic: Reports: Diabetes, type II Other Endocrine/Metabolic Family History: mother - Tobacco Use Smoking Status *Q: Current Every Day Smoker Years of Tobacco use: 30 Packs/Tins Daily: 1 Used Tobacco, but Quit: No Second Hand Smoke Exposure: Yes - Caffeine Use Caffeine Use: Reports: Coffee - Recreational Drug Use Recreational Drug Use: No - Sexual History Sexual History: Reports: Sexually Active - Living Situation & Occupation Living situation: Reports: , with Family Occupation: Unemployed ED ROS GENERAL - Review of Systems Review Of Systems: See Below Constitutional: Denies: Fever, Chills HEENT: Reports: No Symptoms Respiratory: Reports: Pleuritic Chest Pain Cardiovascular: Reports: No Symptoms GI/Abdominal: Reports: No Symptoms Musculoskeletal: Reports: No Symptoms Skin: Reports: No Symptoms Neurological: Reports: No Symptoms ED EXAM, GENERAL - Physical Exam Exam: See Below Exam Limited By: No Limitations General Appearance: Alert, Moderate Distress, Obese Eye Exam: Bilateral Eye: EOMI Ears: Normal External Exam Nose: Normal Inspection Throat/Mouth: Normal Inspection Head: Atraumatic, Normocephalic Neck: Normal Inspection, Full Range of Motion Respiratory/Chest: No Respiratory Distress, Lungs Clear Cardiovascular: Normal Peripheral Pulses, Regular Rate, Rhythm GI/Abdominal: Normal Bowel Sounds, Soft Back Exam: Muscle Spasm. No: CVA Tenderness (L), CVA Tenderness (R), Paraspinal Tenderness, Vertebral Tenderness Neurological: Alert, Oriented, Normal Cognition Psychiatric: Tearful Skin Exam: Warm, Dry, Intact, Normal Color Course - Vital Signs Last Recorded V/S: Last Vital Signs Temp 96.8 F 09/11/17 04:06 Pulse 64 09/11/17 04:06 Resp 18 09/11/17 04:06 BP 109/52 L 09/11/17 04:06 Pulse Ox 97 09/11/17 04:06 - Orders/Labs/Meds Labs: Laboratory Tests 09/11/17 09/11/17 09/11/17 Range/Units 02:41 02:41 02:41 WBC 7.5 (5.0-10.0) 10^3/uL RBC 5.06 (4.2-5.4) 10^6/uL Hgb 14.2 (12.0-16.0) g/dL Hct 42.9 (37.0-47.0) % MCV 84.8 D (80-100) fL MCH 28.1 (27.0-34.0) pg MCHC 33.1 (33.0-35.0) g/dL Plt Count 242 (150-450) 10^3/uL Neut % (Auto) 64.0 (42.2-75.2) % Lymph % (Auto) 22.3 (20.5-50.1) % Mason % (Auto) 8.8 H (2-8) % Eos % (Auto) 4.5 H (1.0-3.0) % Baso % (Auto) 0.4 (0.0-1.0) % D-Dimer, Quantitative 196 (0-400) ng/mL Sodium 136 (135-145) mmol/L Potassium 3.7 (3.6-5.0) mmol/L Chloride 103 (101-111) mmol/L Carbon Dioxide 23.0 (21.0-31.0) mmol/L Anion Gap 13.7 BUN 9 (7-18) mg/dL Creatinine 0.6 (0.6-1.3) mg/dL Est Cr Clr Drug Dosing 120.70 mL/min Estimated GFR (MDRD) > 60 BUN/Creatinine Ratio 15.00 Glucose 296 H (74-105) mg/dL Calcium 8.8 (8.4-10.2) mg/dl Magnesium (1.8-2.5) mg/dL Total Bilirubin 0.5 (0.2-1.0) mg/dL AST 20 (10-42) IU/L ALT 22 (10-60) IU/L Alkaline Phosphatase 111 (42-121) IU/L Troponin I < 0.02 (0.00-0.02) ng/ml Total Protein 7.2 (6.7-8.2) g/dl Albumin 3.5 (3.2-5.5) g/dl Globulin 3.7 Albumin/Globulin Ratio 0.95 Amylase 40 (28-100) U/L Lipase 21 L (22-51) U/L // Range/Units 02:41 WBC (5.0-10.0) 10^3/uL RBC (4.2-5.4) 10^6/uL Hgb (12.0-16.0) g/dL Hct (37.0-47.0) % MCV (80-100) fL MCH (27.0-34.0) pg MCHC (33.0-35.0) g/dL Plt Count (150-450) 10^3/uL Neut % (Auto) (42.2-75.2) % Lymph % (Auto) (20.5-50.1) % Mason % (Auto) (2-8) % Eos % (Auto) (1.0-3.0) % Baso % (Auto) (0.0-1.0) % D-Dimer, Quantitative (0-400) ng/mL Sodium (135-145) mmol/L Potassium (3.6-5.0) mmol/L Chloride (101-111) mmol/L Carbon Dioxide (21.0-31.0) mmol/L Anion Gap BUN (7-18) mg/dL Creatinine (0.6-1.3) mg/dL Est Cr Clr Drug Dosing mL/min Estimated GFR (MDRD) BUN/Creatinine Ratio Glucose (74-105) mg/dL Calcium (8.4-10.2) mg/dl Magnesium 1.7 L (1.8-2.5) mg/dL Total Bilirubin (0.2-1.0) mg/dL AST (10-42) IU/L ALT (10-60) IU/L Alkaline Phosphatase (42-121) IU/L Troponin I (0.00-0.02) ng/ml Total Protein (6.7-8.2) g/dl Albumin (3.2-5.5) g/dl Globulin Albumin/Globulin Ratio Amylase (28-100) U/L Lipase (22-51) U/L Meds: Medications Discontinued Medications Generic Name Dose Route Start Last Admin Trade Name Freq PRN Reason Stop Dose Admin Hydromorphone HCl 1 mg 09/11/17 03:29 09/11/17 03:38 Dilaudid IM 09/11/17 03:30 1 mg ONETIME ONE Administration Ketorolac Tromethamine 30 mg 09/11/17 02:51 09/11/17 03:05 Toradol IM 09/11/17 02:52 30 mg ONETIME ONE Administration Departure - Departure Time of Disposition: 04:05 Disposition: Home, Self-Care 01 Condition: Fair Clinical Impression: Muscle spasm, Hyperglycemia - Discharge Information Instructions: Muscle Cramps and Spasms, [id number] Referrals: Eros Ramírez MD [Primary Care Provider] - Forms: ED Department Discharge Additional Instructions: Warm pack to back Follow up in clinic if continued pain Continue home medications
[2017-09-11 04:11] VITALS: BP 109/52
== END 2017-09-11 04:08 | disposition home or self-care (01) ==
LOC: DL.ED 01:52
DX: M62.830 Muscle spasm of back (principal); E11.65 Type 2 diabetes mellitus with hyperglycemia; E11.21 Type 2 diabetes mellitus with diabetic nephropathy; E11.42 Type 2 diabetes mellitus with diabetic polyneuropathy; F17.210 Nicotine dependence, cigarettes, uncomplicated; Z79.4 Long term (current) use of insulin; Z79.899 Other long term (current) drug therapy; Z88.0 Allergy status to penicillin; Z88.8 Allergy status to other drugs, medicaments and biological substances; Z91.030 Bee allergy status
CPT/HCPCS: 36415; 71010; 80053; 82150; 83690; 83735; 84484; 85025; 85379; 96372; 99285; J1170; J1885; 99282

== ENCOUNTER 2017-12-26 00:19 | Emergency (ER) | payer MEDICARE, MEDICAID ==
[2017-12-26 01:05] LABS: CHLORIDE,CL 98 mmol/L (101-111); SODIUM,NA 133 mmol/L (135-145)
[2017-12-26] MEDS: ALPRAZolam 0.5 MG Tab PO ONE (01:29)
--- NOTE | 2017-12-26 01:29 | EDM.PDOC ---
ED HPI GENERAL MEDICAL PROBLEM - General Chief Complaint: General Stated Complaint: CHEST PAIN [id number] Time Seen by Provider: 12/26/17 01:00 Source of Information: Reports: Patient History Limitations: Reports: No Limitations - History of Present Illness INITIAL COMMENTS - FREE TEXT/NARRATIVE: ED tearful, reports just broke up with boyfriend and now having a panic attack. Has been talking with crisis counselor stef. States has been on xanax for years and they are trying to wean her off them. Does not have access to meds tonight. Is palnning to stay with family tonight. Headache Pain Score (Numeric/FACES): 8 - Related Data Allergies Allergy/AdvReac Type Severity Reaction Status Date / Time bee venom protein (honey bee) Allergy Airway Verified 12/26/17 00:30 Tightness diphenhydramine HCl Allergy Anxiety Verified 12/26/17 00:30 [From Benadryl] penicillin Allergy Airway Verified 12/26/17 00:30 Tightness Home Meds: Home Meds ALPRAZolam [Xanax] 1 mg PO TID PRN 06/03/15 [History] Sertraline HCl [Zoloft] 200 mg PO BEDTIME 01/11/16 [History] Cyclobenzaprine [Flexeril] 10 mg PO Q8H PRN 12/19/16 [History] Hydrocodone/Acetaminophen [Hydrocodon-Acetaminophen 5-325] 2 tab PO TID PRN [History] Ibuprofen 800 mg PO Q8HR PRN 02/15/17 [History] Adalimumab [Humira] 40 mg SUBCUT WEEKLY 04/08/17 [History] Insulin Regular, Human [Humulin R] See Protocol SUBCUT BIDMEALS 04/08/17 [ History] Acetaminophen [Acetaminophen Extra Strength] 1,000 mg PO Q6H PRN 04/09/17 [ History] metFORMIN [Glucophage] 1,000 mg PO BIDMEALS 04/09/17 [History] Past Medical History - Past Health History Medical/Surgical History: Denies Medical/Surgical History HEENT History: Reports: Other (See Below) Other HEENT History: astygmatism Cardiovascular History: Reports: None Respiratory History: Reports: Bronchitis, Recurrent Gastrointestinal History: Reports: Cholelithiasis Other Gastrointestinal History: liver abscess x5 Genitourinary History: Reports: Diabetic Nephropathy 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 Patient states she had a hysterectomy Musculoskeletal History: Reports: Fibromyalgia Neurological History: Reports: Migraines, Neuropathy, Diabetic, Neuropathy, Peripheral, Vertigo Psychiatric History: Reports: Anxiety, Depression, Panic Attack Endocrine/Metabolic History: Reports: Diabetes, Type II, IDDM, Obesity/BMI 30+, Other (See Below) Other Endocrine/Metabolic History: Is on UV insulin bid. does not know the exact name. Hematologic History: Reports: None, Blood Transfusion(s) Immunologic History: Reports: None Oncologic (Cancer) History: Reports: None Dermatologic History: Reports: Cellulitis, Other (See Below) Other Dermatologic History: skin condition right forehead and orbital - Infectious Disease History Infectious Disease History: Reports: MRSA - Past Surgical History Respiratory Surgical History: Reports: None GI Surgical History: Reports: Cholecystectomy Female Surgical History: Reports: Hysterectomy Social & Family History - Family History Family Medical History: Noncontributory Cardiac: Reports: Hypertension Other Cardiac Family History: Mother Respiratory: Reports: COPD Other Respiratory Family Hisory: Mother OBGYN: Reports: Endometriosis Other OBGYN Family History: Mother Endocrine/Metabolic: Reports: Diabetes, type II Other Endocrine/Metabolic Family History: mother - Tobacco Use Smoking Status *Q: Current Every Day Smoker Years of Tobacco use: 30 Packs/Tins Daily: 1 Used Tobacco, but Quit: No Second Hand Smoke Exposure: Yes - Caffeine Use Caffeine Use: Reports: Coffee, Soda - Recreational Drug Use Recreational Drug Use: No - Sexual History Sexual History: Reports: Sexually Active - Living Situation & Occupation Living situation: Reports: , with Family Occupation: Unemployed ED ROS GENERAL - Review of Systems Review Of Systems: See Below Psychiatric: Reports: Anxiety, Depression. Denies: Suicidal Ideation ED EXAM, GENERAL - Physical Exam Exam: See Below Exam Limited By: No Limitations General Appearance: Alert, Anxious, Obese Eye Exam: Bilateral Eye: EOMI Ears: Normal External Exam Nose: Normal Inspection Throat/Mouth: Normal Inspection Head: Atraumatic, Other Neck: Normal Inspection Respiratory/Chest: No Respiratory Distress, Lungs Clear Cardiovascular: Normal Peripheral Pulses, Regular Rate, Rhythm Extremities: Normal Inspection Neurological: Alert, Oriented, Normal Cognition Psychiatric: Anxious, Tearful Skin Exam: Dry, Intact, Normal Color Course - Vital Signs Last Recorded V/S: Last Vital Signs Temp 96.2 F 12/26/17 00:28 Pulse 109 H 12/26/17 01:31 Resp 16 12/26/17 01:31 BP 128/68 12/26/17 01:31 Pulse Ox 100 12/26/17 01:31 - Orders/Labs/Meds Orders: Active Orders 24 hr Category Date Time Status EKG Documentation Completion [RC] URGENT Care 12/26/17 00:23 Inactive CXR [Chest 1V Frontal] [CR] Urgent Exams 12/26/17 00:23 Stop Req Labs: Laboratory Tests 12/26/17 12/26/17 Range/Units 00:38 00:38 WBC 13.2 H (5.0-10.0) 10^3/uL RBC 5.64 H (4.2-5.4) 10^6/uL Hgb 15.9 D (12.0-16.0) g/dL Hct 46.3 (37.0-47.0) % MCV 82.1 (80-100) fL MCH 28.2 (27.0-34.0) pg MCHC 34.3 (33.0-35.0) g/dL Plt Count 316 (150-450) 10^3/uL Neut % (Auto) 69.9 (42.2-75.2) % Lymph % (Auto) 20.4 L (20.5-50.1) % Wirt % (Auto) 6.5 (2-8) % Eos % (Auto) 2.8 (1.0-3.0) % Baso % (Auto) 0.4 (0.0-1.0) % Sodium 133 L (135-145) mmol/L Potassium 3.6 (3.6-5.0) mmol/L Chloride 98 L (101-111) mmol/L Carbon Dioxide 24.0 (21.0-31.0) mmol/L Anion Gap 14.6 BUN 12 (7-18) mg/dL Creatinine 0.7 (0.6-1.3) mg/dL Est Cr Clr Drug Dosing 107.18 mL/min Estimated GFR (MDRD) > 60 BUN/Creatinine Ratio 17.14 Glucose 384 H (74-105) mg/dL Calcium 9.3 (8.4-10.2) mg/dl Total Bilirubin 0.5 (0.2-1.0) mg/dL AST 18 (10-42) IU/L ALT 18 (10-60) IU/L Alkaline Phosphatase 136 H (42-121) IU/L Troponin I < 0.02 (0.00-0.02) ng/ml Total Protein 8.6 H (6.7-8.2) g/dl Albumin 3.9 (3.2-5.5) g/dl Globulin 4.7 Albumin/Globulin Ratio 0.83 Amylase 38 (28-100) U/L Lipase 8 L (22-51) U/L Meds: Medications Discontinued Medications Generic Name Dose Route Start Last Admin Trade Name Freq PRN Reason Stop Dose Admin Alprazolam 1 mg 12/26/17 01:22 12/26/17 01:29 Xanax PO 12/26/17 01:23 1 mg ONETIME ONE Administration Departure - Departure Time of Disposition: 01:25 Disposition: Home, Self-Care 01 Condition: Fair Clinical Impression: Hyperglycemia, Anxiety - Discharge Information Instructions: Panic Attacks, [id number] Forms: ED Department Discharge Additional Instructions: [facility] Follow up with mental health provider to discuss medications tomorrow also - My Orders Last 24 Hours: My Active Orders 12/26/17 00:23 EKG Documentation Completion [RC] URGENT CXR [Chest 1V Frontal] [CR] Urgent - Assessment/Plan Last 24 Hours: My Active Orders 12/26/17 00:23 EKG Documentation Completion [RC] URGENT CXR [Chest 1V Frontal] [CR] Urgent
[2017-12-26 01:33] VITALS: BP 128/68
== END 2017-12-26 01:35 | disposition home or self-care (01) ==
LOC: DL.ED 00:19
DX: F41.9 Anxiety disorder, unspecified (principal); E11.65 Type 2 diabetes mellitus with hyperglycemia; E11.40 Type 2 diabetes mellitus with diabetic neuropathy, unspecified; F17.210 Nicotine dependence, cigarettes, uncomplicated; Z91.030 Bee allergy status; Z88.0 Allergy status to penicillin; Z79.899 Other long term (current) drug therapy; Z79.84 Long term (current) use of oral hypoglycemic drugs; Z79.4 Long term (current) use of insulin
CPT/HCPCS: 36415; 80053; 82150; 83690; 84484; 85025; 99285; A9270

== ENCOUNTER 2018-01-16 23:31 | Emergency (ER) | payer MEDICARE, MEDICAID ==
[2018-01-16] MEDS ORDERED: Clindamycin Phosphate 900 MG in Sodium Chloride 0.9% 100 ML IV ONE (23:54)
[2018-01-16] MEDS ORDERED: Sodium Chloride 0.9% 1,000 ML IV ONE (23:54)
--- NOTE | 2018-01-16 23:59 | EDM.PDOC ---
ED HPI GENERAL MEDICAL PROBLEM - General Chief Complaint: Skin Complaint Stated Complaint: SICK [id number] Time Seen by Provider: 01/16/18 23:55 Source of Information: Reports: Patient History Limitations: Reports: No Limitations - History of Present Illness INITIAL COMMENTS - FREE TEXT/NARRATIVE: 1 week h/o abscess on back. not seen anyone till now because it hurts more. Right Shoulder Pain Score (Numeric/FACES): 8 - Related Data Allergies Allergy/AdvReac Type Severity Reaction Status Date / Time bee venom protein (honey bee) Allergy Airway Verified 01/16/18 23:43 Tightness diphenhydramine HCl Allergy Anxiety Verified 01/16/18 23:43 [From Benadryl] penicillin Allergy Airway Verified 01/16/18 23:43 Tightness Home Meds: Home Meds ALPRAZolam [Xanax] 1 mg PO TID PRN 06/03/15 [History] Sertraline HCl [Zoloft] 200 mg PO BEDTIME 01/11/16 [History] Cyclobenzaprine [Flexeril] 10 mg PO Q8H PRN 12/19/16 [History] Hydrocodone/Acetaminophen [Hydrocodon-Acetaminophen 5-325] 2 tab PO TID PRN [History] Ibuprofen 800 mg PO Q8HR PRN 02/15/17 [History] Adalimumab [Humira] 40 mg SUBCUT WEEKLY 04/08/17 [History] Insulin Regular, Human [Humulin R] See Protocol SUBCUT BIDMEALS 04/08/17 [ History] Acetaminophen [Acetaminophen Extra Strength] 1,000 mg PO Q6H PRN 04/09/17 [ History] metFORMIN [Glucophage] 1,000 mg PO BIDMEALS 04/09/17 [History] Past Medical History - Past Health History Medical/Surgical History: Denies Medical/Surgical History HEENT History: Reports: Other (See Below) Other HEENT History: astygmatism Cardiovascular History: Reports: None Respiratory History: Reports: Bronchitis, Recurrent Gastrointestinal History: Reports: Cholelithiasis Other Gastrointestinal History: liver abscess x5 Genitourinary History: Reports: Diabetic Nephropathy 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 Patient states she had a hysterectomy Musculoskeletal History: Reports: Fibromyalgia Neurological History: Reports: Migraines, Neuropathy, Diabetic, Neuropathy, Peripheral, Vertigo Psychiatric History: Reports: Anxiety, Depression, Panic Attack Endocrine/Metabolic History: Reports: Diabetes, Type II, IDDM, Obesity/BMI 30+, Other (See Below) Other Endocrine/Metabolic History: Is on UV insulin bid. does not know the exact name. Hematologic History: Reports: None, Blood Transfusion(s) Immunologic History: Reports: None Oncologic (Cancer) History: Reports: None Dermatologic History: Reports: Cellulitis, Other (See Below) Other Dermatologic History: skin condition right forehead and orbital - Infectious Disease History Infectious Disease History: Reports: MRSA - Past Surgical History Respiratory Surgical History: Reports: None GI Surgical History: Reports: Cholecystectomy Female Surgical History: Reports: Hysterectomy Social & Family History - Family History Family Medical History: Noncontributory Cardiac: Reports: Hypertension Other Cardiac Family History: Mother Respiratory: Reports: COPD Other Respiratory Family Hisory: Mother OBGYN: Reports: Endometriosis Other OBGYN Family History: Mother Endocrine/Metabolic: Reports: Diabetes, type II Other Endocrine/Metabolic Family History: mother - Tobacco Use Smoking Status *Q: Current Every Day Smoker Years of Tobacco use: 20 Packs/Tins Daily: 1 Used Tobacco, but Quit: No Second Hand Smoke Exposure: Yes - Caffeine Use Caffeine Use: Reports: Coffee, Soda - Recreational Drug Use Recreational Drug Use: No - Sexual History Sexual History: Reports: Sexually Active - Living Situation & Occupation Living situation: Reports: , with Family Occupation: Unemployed ED ROS GENERAL - Review of Systems Review Of Systems: ROS reveals no pertinent complaints other than HPI. ED EXAM, SKIN/RASH Exam: See Below Exam Limited By: No Limitations General Appearance: Alert, WD/WN, Mild Distress, Other (pain) Ears: Hearing Grossly Normal Throat/Mouth: Normal Voice, No Airway Compromise Head: Atraumatic Neck: Non-Tender, Full Range of Motion Respiratory/Chest: No Respiratory Distress Cardiovascular: Regular Rate, Rhythm GI/Abdominal: Soft, Non-Tender Back Exam: Other (right post shoulder palpable firm tender erythematous abscess without lymphangitis) Psychiatric: Tearful Skin: Warm, Dry, Normal Color Location, Skin: Upper Extremity, Right Associated features: Warmth, Tenderness, Swelling, Inflammation Lymphatic: No Adenopathy Course - Vital Signs Last Recorded V/S: Last Vital Signs Temp 37.1 C 03/28/18 23:39 Pulse 124 H 01/16/18 23:39 Resp 18 01/16/18 23:39 BP 126/96 H 01/16/18 23:39 Pulse Ox 100 01/16/18 23:39 - Orders/Labs/Meds Orders: Active Orders 24 hr Category Date Time Status CULTURE BLOOD [BC] Stat Lab 01/16/18 23:54 Received Acetaminophen/HYDROcodone [[place] 325-10 MG] Med 01/17/18 01:58 Once 1 tab PO ONETIME ONE Medication Orders Hydrocodone Bitart/Acetaminophen ([place] 325-10 Mg) 1 tab PO ONETIME ONE Stop: 01/17/18 01:59 Labs: Laboratory Tests 01/17/18 01/17/18 01/17/18 Range/Units 00:00 00:00 00:00 WBC 12.7 H (5.0-10.0) 10^3/uL RBC 5.16 (4.2-5.4) 10^6/uL Hgb 14.6 (12.0-16.0) g/dL Hct 42.9 (37.0-47.0) % MCV 83.1 (80-100) fL MCH 28.3 (27.0-34.0) pg MCHC 34.0 (33.0-35.0) g/dL Plt Count 279 (150-450) 10^3/uL Neut % (Auto) 70.9 (42.2-75.2) % Lymph % (Auto) 18.7 L (20.5-50.1) % Ogle % (Auto) 7.4 (2-8) % Eos % (Auto) 2.7 (1.0-3.0) % Baso % (Auto) 0.3 (0.0-1.0) % Sodium 134 L (135-145) mmol/L Potassium 3.6 (3.6-5.0) mmol/L Chloride 102 (101-111) mmol/L Carbon Dioxide 24.0 (21.0-31.0) mmol/L Anion Gap 11.6 BUN 8 (7-18) mg/dL Creatinine 0.7 (0.6-1.3) mg/dL Est Cr Clr Drug Dosing 107.18 mL/min Estimated GFR (MDRD) > 60 BUN/Creatinine Ratio 11.42 Glucose 399 H (74-105) mg/dL Lactic Acid 1.2 (0.5-2.2) mmol/L Calcium 9.0 (8.4-10.2) mg/dl Total Bilirubin 0.7 (0.2-1.0) mg/dL AST 15 (10-42) IU/L ALT 16 (10-60) IU/L Alkaline Phosphatase 121 (42-121) IU/L Total Protein 8.3 H (6.7-8.2) g/dl Albumin 3.5 (3.2-5.5) g/dl Globulin 4.8 Albumin/Globulin Ratio 0.73 Meds: Medications Generic Name Dose Route Start Last Admin Trade Name Freq PRN Reason Stop Dose Admin Hydrocodone Bitart/Acetaminophen 1 tab 01/17/18 01:58 [place] 325-10 Mg PO 01/17/18 01:59 ONETIME ONE Discontinued Medications Generic Name Dose Route Start Last Admin Trade Name Freq PRN Reason Stop Dose Admin Clindamycin Phosphate 900 mg/ 106 mls @ 200 mls/hr 01/16/18 23:54 01/17/18 00 :24 Sodium Chloride IV 01/17/18 00:25 200 mls/hr ONETIME ONE Administration Sodium Chloride 1,000 mls @ 999 mls/hr 01/16/18 23:54 01/17/18 00:23 Normal Saline IV 01/17/18 00:54 999 mls/hr .BOLUS ONE Administration Insulin Human Regular 5 unit 01/17/18 01:00 01/17/18 01:14 Humulin R IV 01/17/18 01:01 5 units ONETIME ONE Administration Ketorolac Tromethamine 15 mg 01/17/18 01:00 01/17/18 01:12 Toradol IVPUSH 01/17/18 01:01 15 mg ONETIME ONE Administration - Re-Assessments/Exams Free Text/Narrative Re-Assessment/Exam: 01/17/18 01:59 re-exam; s/p IV + IV ABX + IV torad + IV insulin = much better Departure - Departure Time of Disposition: 02:00 Disposition: Home, Self-Care 01 Condition: Good Clinical Impression: Abscess, Insulin dependent diabetes mellitus, Hyperglycemia - Discharge Information Instructions: Skin Abscess, [id number] Forms: ED Department Discharge Additional Instructions: 1) use hot compress to abscess 2) see clinic or family doctor tomorrow for follow up rx given; clindamycin 150mg qid x 40 - My Orders Last 24 Hours: My Active Orders 01/16/18 23:54 CULTURE BLOOD [BC] Stat 01/17/18 01:58 Acetaminophen/HYDROcodone [[place] 325-10 MG] 1 tab PO ONETIME ONE - Assessment/Plan Last 24 Hours: My Active Orders 01/16/18 23:54 CULTURE BLOOD [BC] Stat 01/17/18 01:58 Acetaminophen/HYDROcodone [[place] 325-10 MG] 1 tab PO ONETIME ONE
[2018-01-17 00:35] LABS: CHLORIDE,CL 102 mmol/L (101-111); SODIUM,NA 134 mmol/L (135-145)
[2018-01-17] MEDS ORDERED: Insulin Regular, Human 100 Units/ML 3 ML Vial IV ONE (01:00)
[2018-01-17] MEDS ORDERED: Ketorolac 30 MG/ML SDV IVPUSH ONE (01:00)
[2018-01-17] MEDS ORDERED: Acetaminophen/HYDROcodone 325-10 MG Tab PO ONE (01:58)
[2018-01-17 02:09] VITALS: BP 115/54
== END 2018-01-17 02:13 | disposition home or self-care (01) ==
LOC: DL.ED 23:31
DX: L02.413 Cutaneous abscess of right upper limb (principal); E11.65 Type 2 diabetes mellitus with hyperglycemia; E11.42 Type 2 diabetes mellitus with diabetic polyneuropathy; F17.210 Nicotine dependence, cigarettes, uncomplicated; Z91.030 Bee allergy status; Z88.0 Allergy status to penicillin; Z88.8 Allergy status to other drugs, medicaments and biological substances; Z79.899 Other long term (current) drug therapy; Z79.4 Long term (current) use of insulin
CPT/HCPCS: 36415; 80053; 82962; 83605; 85025; 87040; 96365; 96368; 96375; 99283; A9270; J1815; J1885; J7030; J7050; 99282; S0077

== ENCOUNTER 2018-06-25 20:25 | Emergency (ER) | payer MEDICARE, MEDICAID ==
[2018-06-25 20:33] VITALS: BP 132/69
[2018-06-26] MEDS ORDERED: Acetaminophen/HYDROcodone 325-10 MG Tab PO ONE (00:28)
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
== END 2018-06-26 00:50 | disposition home or self-care (01) ==
LOC: DL.ED 20:25
DX: S92.515A Nondisplaced fracture of proximal phalanx of left lesser toe(s), initial encounter for closed fracture (principal); E11.21 Type 2 diabetes mellitus with diabetic nephropathy; E66.9 Obesity, unspecified; F17.210 Nicotine dependence, cigarettes, uncomplicated; Z91.030 Bee allergy status; Z88.8 Allergy status to other drugs, medicaments and biological substances; Z88.0 Allergy status to penicillin; Z79.4 Long term (current) use of insulin; Z79.899 Other long term (current) drug therapy; W22.8XXA Striking against or struck by other objects, initial encounter
CPT/HCPCS: 73660; 99283; A9270

== ENCOUNTER 2018-07-28 14:32 | Emergency (ER) | payer MEDICARE, MEDICAID ==
[2018-07-28 15:08] VITALS: BP 121/56
[2018-07-28] MEDS ORDERED: Acetaminophen/HYDROcodone 325-10 MG Tab PO ONE (16:22)
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
== END 2018-07-28 16:45 | disposition home or self-care (01) ==
LOC: DL.ED 14:32
DX: S22.31XA Fracture of one rib, right side, initial encounter for closed fracture (principal); E11.21 Type 2 diabetes mellitus with diabetic nephropathy; E66.9 Obesity, unspecified; E11.40 Type 2 diabetes mellitus with diabetic neuropathy, unspecified; Z79.4 Long term (current) use of insulin; Z79.899 Other long term (current) drug therapy; Z88.0 Allergy status to penicillin; Z91.030 Bee allergy status; W22.8XXA Striking against or struck by other objects, initial encounter
CPT/HCPCS: 71100; 99283; A9270

== ENCOUNTER 2018-11-18 17:59 | Emergency (ER) | payer MEDICARE, MEDICAID ==
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
[2018-11-18 19:00] LABS: ANION GAP 12.5; CHLORIDE,CL 101 mmol/L (101-111); SODIUM,NA 135 mmol/L (135-145)
[2018-11-18] MEDS ORDERED: HYDROmorphone 1 MG/ML Syringe IVPUSH ONE ×2 (19:52→22:25)
[2018-11-18] MEDS ORDERED: Lactated Ringers 1,000 ML IV ONE (19:53)
[2018-11-18] MEDS ORDERED: Iopamidol 612 MG/ML 100 ML Bottle IVPUSH ONE (19:54)
[2018-11-18 21:00] VITALS: BP 107/70
[2018-11-18] MEDS ORDERED: Levofloxacin 500 MG Tab PO ONE (21:43)
== END 2018-11-18 22:45 | disposition home or self-care (01) ==
LOC: DL.ED 17:59
DX: N39.0 Urinary tract infection, site not specified (principal); Z88.0 Allergy status to penicillin; Z91.030 Bee allergy status; Z79.899 Other long term (current) drug therapy
CPT/HCPCS: 36415; 74178; 80053; 80305; 81001; 82150; 83690; 85025; 87086; 96361; 96374; 96376; 99284; A9270; J1170; J7120; Q9967; 87088; 87186

== ENCOUNTER 2019-02-07 19:32 | Emergency (ER) | payer MEDICARE, MEDICAID ==
[2019-02-07 19:39] VITALS: BP 136/111
[2019-02-07] MEDS ORDERED: Acetaminophen/HYDROcodone 325-10 MG Tab PO ONE (19:43)
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
== END 2019-02-07 20:16 | disposition home or self-care (01) ==
LOC: DL.ED 19:32
DX: S20.212A Contusion of left front wall of thorax, initial encounter (principal); E11.21 Type 2 diabetes mellitus with diabetic nephropathy; E11.42 Type 2 diabetes mellitus with diabetic polyneuropathy; F41.9 Anxiety disorder, unspecified; F32.9 Major depressive disorder, single episode, unspecified; Z91.030 Bee allergy status; Z88.0 Allergy status to penicillin; Z88.8 Allergy status to other drugs, medicaments and biological substances; Z79.899 Other long term (current) drug therapy; Z79.4 Long term (current) use of insulin; Y04.8XXA Assault by other bodily force, initial encounter
CPT/HCPCS: 71101; 99284; A9270

== ENCOUNTER 2019-10-03 16:34 | Emergency (ER) | payer MEDICARE, MEDICAID ==
[2019-10-03 16:44] VITALS: BP 121/82; PULSE 114
[2019-10-03] MEDS ORDERED: Lidocaine 1% 30 ML SDV INJECT ONE (17:08)
[2019-10-03] MEDS ORDERED: Acetaminophen/HYDROcodone 325-10 MG Tab PO ONE (17:09)
--- NOTE | 2019-10-03 17:30 | EDM.PDOC ---
ED HPI GENERAL MEDICAL PROBLEM - General Chief Complaint: Upper Extremity Injury/Pain Stated Complaint: LEFT ARM HURTING Time Seen by Provider: 10/03/19 16:50 Source of Information: Reports: Patient History Limitations: Reports: No Limitations - History of Present Illness INITIAL COMMENTS - FREE TEXT/NARRATIVE: This 44 yo female patient reports to the ED with left upper arm pain (since July) and left chest wall pain due to an abscess. The patient reports she has been seen for her upper arm pain, but the exercises and pain medications are not helping. The patient reports she has not had any trauma or recent injury to her shoulder. The patient reports she has a history of abscesses and MRSA. Onset: Unknown/Unsure Duration: Constant, Getting Worse Location: Reports: Chest (left chest wall (beneath left breast)), Upper Extremity, Left Quality: Reports: Ache, Sharp, Stabbing Severity: Severe Improves with: Reports: None Worsens with: Reports: None Context: Reports: Other Associated Symptoms: Reports: No Other Symptoms Left Upper Arm Pain Score (Numeric/FACES): 10 - Related Data Allergies Allergy/AdvReac Type Severity Reaction Status Date / Time bee venom protein (honey bee) Allergy Airway Verified 02/07/19 19:59 Tightness diphenhydramine HCl Allergy Anxiety Verified 02/07/19 19:59 [From Benadryl] penicillin Allergy Airway Verified 02/07/19 19:59 Tightness Home Meds: Home Meds ALPRAZolam [Xanax] 2 mg PO BID PRN 06/03/15 [History] Sertraline HCl [Zoloft] 200 mg PO BEDTIME 01/11/16 [History] Cyclobenzaprine [Flexeril] 10 mg PO Q8H PRN 12/19/16 [History] Hydrocodone/Acetaminophen [Hydrocodon-Acetaminophen 5-325] 1 tab PO TID PRN [History] metFORMIN [Glucophage] 1,000 mg PO BIDMEALS 04/09/17 [History] Insulin Aspart [NovoLOG] 30 units SQ TID 07/28/18 [History] traZODone HCl [Trazodone HCl] 50 mg PO DAILY 07/28/18 [History] Insulin Degludec [Tresiba Flextouch U-100] 75 units SQ BID 09/10/18 [History] Past Medical History - Past Health History Medical/Surgical History: Denies Medical/Surgical History HEENT History: Reports: Other (See Below) Other HEENT History: astygmatism Cardiovascular History: Reports: None Respiratory History: Reports: Bronchitis, Recurrent Gastrointestinal History: Reports: Cholelithiasis Other Gastrointestinal History: liver abscess x5 Genitourinary History: Reports: Diabetic Nephropathy CLINICAL TRIAL HEAD History: Reports: Endometriosis, Other CLINICAL TRIAL HEAD History: 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 Patient states she had a hysterectomy Musculoskeletal History: Reports: Fibromyalgia Neurological History: Reports: Migraines, Neuropathy, Diabetic, Neuropathy, Peripheral, Vertigo Psychiatric History: Reports: Anxiety, Depression, Panic Attack Endocrine/Metabolic History: Reports: Diabetes, Type II, IDDM, Obesity/BMI 30+, Other (See Below) Other Endocrine/Metabolic History: Is on UV insulin bid. does not know the exact name. Hematologic History: Reports: Blood Transfusion(s) Immunologic History: Reports: None Oncologic (Cancer) History: Reports: None, Other (See Below) Other Oncologic History: tumor removed from right breat non concerous 2018 Dermatologic History: Reports: Cellulitis, Other (See Below) Other Dermatologic History: skin condition right forehead and orbital, throughout body. - Infectious Disease History Infectious Disease History: Reports: MRSA - Past Surgical History Head Surgeries/Procedures: Reports: None Respiratory Surgical History: Reports: None GI Surgical History: Reports: Cholecystectomy Female Surgical History: Reports: Hysterectomy, Other (See Below) Other Female Surgeries/Procedures: Tumor to rt. breast. Social & Family History - Family History Family Medical History: Noncontributory Cardiac: Reports: Hypertension Other Cardiac Family History: Mother Respiratory: Reports: COPD Other Respiratory Family Hisory: Mother OBGYN: Reports: Endometriosis Other OBGYN Family History: Mother Endocrine/Metabolic: Reports: Diabetes, type II Other Endocrine/Metabolic Family History: mother - Tobacco Use Smoking Status *Q: Current Every Day Smoker Years of Tobacco use: 30 Packs/Tins Daily: 0.5 Second Hand Smoke Exposure: Yes - Caffeine Use Caffeine Use: Reports: Coffee, Soda - Recreational Drug Use Recreational Drug Use: No - Sexual History Sexual History: Reports: Sexually Active - Living Situation & Occupation Living situation: Reports: , with Family Occupation: Unemployed Review of Systems - Review of Systems Review Of Systems: Comprehensive ROS is negative, except as noted in HPI. ED EXAM, GENERAL - Physical Exam Exam: See Below Exam Limited By: No Limitations General Appearance: Alert, WD/WN, Moderate Distress, Obese Eye Exam: Bilateral Eye: EOMI, Normal Inspection, PERRL Ears: Normal External Exam, Normal Canal, Hearing Grossly Normal, Normal TMs Nose: Normal Inspection, Normal Mucosa, No Blood Throat/Mouth: Normal Inspection, Normal Lips, Normal Teeth, Normal Gums, Normal Oropharynx, Normal Voice, No Airway Compromise Head: Atraumatic, Normocephalic Neck: Normal Inspection, Supple, Non-Tender, Full Range of Motion Respiratory/Chest: No Respiratory Distress, Lungs Clear, Normal Breath Sounds, No Accessory Muscle Use, Other (left sided chest wal tenderness) Cardiovascular: Normal Peripheral Pulses, Regular Rate, Rhythm, No Edema, No Gallop, No JVD, No Murmur, No Rub GI/Abdominal: Normal Bowel Sounds, Soft, Non-Tender, No Organomegaly, No Distention, No Abnormal Bruit, No Mass (Female) Exam: Deferred Rectal (Female) Exam: Deferred Back Exam: Normal Inspection, Full Range of Motion, NT Extremities: Arm Pain (left upper arm pain (chronic)) Neurological: Alert, Oriented, CN II-XII Intact, Normal Cognition, Normal Gait, Normal Reflexes, No Motor/Sensory Deficits Psychiatric: Normal Affect, Normal Mood Skin Exam: Other (abscess under left breast) ED TRAUMA EXTREMITY PROCEDURES - I&D Site: Left lateral chest wall Skin Prep: Providone-Iodine (Betadine), Isopropyl Alcohol (Alcohol) Local Anesthesia: Lidocaine: 1% Plain Local Anesthetic Volume: 3cc Area Incised With: 15 Blade Drainage: Purulent, Bloody, Moderate Amount Probed to Break Up Loculations: Yes Packed With: None Sterile Dressing: Adhesive Dressing Complications: No Course - Vital Signs Last Recorded V/S: Last Vital Signs Temp 36.1 C 10/03/19 16:39 Pulse 114 H 10/03/19 16:39 Resp 20 10/03/19 16:39 BP 121/82 10/03/19 16:39 Pulse Ox 99 10/03/19 16:39 - Orders/Labs/Meds Orders: Active Orders 24 hr Category Date Time Status CULTURE WOUND [RM] Stat Lab 10/03/19 17:24 Ordered Meds: Medications Discontinued Medications Generic Name Dose Route Start Last Admin Trade Name Freq PRN Reason Stop Dose Admin Hydrocodone Bitart/Acetaminophen 1 tab 10/03/19 17:09 10/03/19 17:12 [place] 325-10 Mg PO 10/03/19 17:10 1 tab ONETIME ONE Administration Lidocaine HCl 30 ml 10/03/19 17:08 10/03/19 17:13 Xylocaine-Mpf 1% INJECT 10/03/19 17:09 30 ml ONETIME ONE Administration Departure - Departure Time of Disposition: 17:30 Disposition: Home, Self-Care 01 Condition: Fair Clinical Impression: Abscess Muscle strain of left upper arm Qualifiers: Encounter type: subsequent encounter Qualified Code(s): S46.912D - Strain of unspecified muscle, fascia and tendon at shoulder and upper arm level, left arm , subsequent encounter - Discharge Information *PRESCRIPTION DRUG MONITORING PROGRAM REVIEWED*: Not Applicable *COPY OF PRESCRIPTION DRUG MONITORING REPORT IN PATIENT ELEANOR: Not Applicable Instructions: Incision and Drainage, Muscle Strain Care Plan Goals: The patient was advised of the examination results during the visit. The patient 's abscess was incised and drained during the visit. The patient was discharged with a script for Bactrim DS #28 to take 1 by mouth 2 times per day for 14 days. The patient was placed in a sling for support of her left arm. The patient was encouraged to rest the area and follow-up with her primary care facility for continued evaluation and further management. If the patient has any additional symptoms or concerns, the patient should either return to the emergency department or visit her primary care facility. Sepsis Event Note - Evaluation Sepsis Screening Result: No Definite Risk - Focused Exam Vital Signs: Vital Signs Temp Pulse Resp BP Pulse Ox 10/03/19 16:39 36.1 C 114 H 20 121/82 99 Date Exam was Performed: 10/03/19 Time Exam was Performed: 17:25 - My Orders Last 24 Hours: My Active Orders 10/03/19 17:24 CULTURE WOUND [RM] Stat - Assessment/Plan Last 24 Hours: My Active Orders 10/03/19 17:24 CULTURE WOUND [RM] Stat
== END 2019-10-03 17:39 | disposition home or self-care (01) ==
LOC: DL.ED 16:34
DX: L02.213 Cutaneous abscess of chest wall (principal); S46.912A Strain of unspecified muscle, fascia and tendon at shoulder and upper arm level, left arm, initial encounter; E11.42 Type 2 diabetes mellitus with diabetic polyneuropathy; F41.9 Anxiety disorder, unspecified; F32.9 Major depressive disorder, single episode, unspecified; F17.210 Nicotine dependence, cigarettes, uncomplicated; E66.9 Obesity, unspecified; Z68.38 Body mass index [BMI] 38.0-38.9, adult; Z79.4 Long term (current) use of insulin; Z79.899 Other long term (current) drug therapy; Z88.0 Allergy status to penicillin; Z88.8 Allergy status to other drugs, medicaments and biological substances; Z91.030 Bee allergy status; X58.XXXA Exposure to other specified factors, initial encounter
CPT/HCPCS: 10060; 87070; 99284; A9270; J2001

== ENCOUNTER 2020-05-02 19:45 | Inpatient (IN) | payer MEDICARE, MEDICAID ==
--- NOTE | 2020-05-02 20:53 | EDM.PDOC ---
<Varun Valiente - Last Filed: 05/03/20 00:42> ED HPI GENERAL MEDICAL PROBLEM - General Chief Complaint: Skin Complaint Stated Complaint: ABSESS RIGHT LEG Time Seen by Provider: 05/02/20 20:35 Source of Information: Reports: Patient History Limitations: Reports: No Limitations - History of Present Illness INITIAL COMMENTS - FREE TEXT/NARRATIVE: Patient presents for abscess on her right posterior thigh. She has a PMH of DM and frequent episodes of abscesses to the area. She noted that this abscess has been worsening since the weekend. She was sitting on a wooden chair and attributes that as the cause. She tried using clindamycin cream but it did not resolve. This is associated with 10/10, sharp, constant pain to the affected area. Due to worsening and enlarging abscess, she presented for further evaluation. Right Upper Leg Pain Score (Numeric/FACES): 8 - Related Data Allergies Allergy/AdvReac Type Severity Reaction Status Date / Time bee venom protein (honey bee) Allergy Airway Verified 05/02/20 21:40 Tightness diphenhydramine HCl Allergy Anxiety Verified 05/02/20 21:40 [From Benadryl] penicillin Allergy Airway Verified 05/02/20 21:40 Tightness Home Meds: Home Meds Sertraline HCl [Zoloft] 200 mg PO BEDTIME 01/11/16 [History] Cyclobenzaprine [Flexeril] 10 mg PO Q8H PRN 12/19/16 [History] Hydrocodone/Acetaminophen [Hydrocodone-Acetamin 5-325 mg] 1 tab PO TID PRN 12/19/16 [History] metFORMIN [Glucophage] 1,000 mg PO BIDMEALS 04/09/17 [History] Insulin Aspart [NovoLOG] 30 units SQ TIDMEALS 07/28/18 [History] traZODone HCl [Trazodone HCl] 50 mg PO BEDTIME 07/28/18 [History] Insulin Degludec [Tresiba Flextouch U-100] 75 units SQ BID 09/10/18 [History] Gabapentin [Neurontin] 600 mg PO TID 05/02/20 [History] Past Medical History - Past Health History Medical/Surgical History: Denies Medical/Surgical History HEENT History: Reports: Other (See Below) Other HEENT History: astygmatism Cardiovascular History: Reports: None Respiratory History: Reports: Bronchitis, Recurrent Gastrointestinal History: Reports: Cholelithiasis Other Gastrointestinal History: liver abscess x5 Genitourinary History: Reports: Diabetic Nephropathy 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 Patient states she had a hysterectomy Musculoskeletal History: Reports: Fibromyalgia Neurological History: Reports: Migraines, Neuropathy, Diabetic, Neuropathy, Peripheral, Vertigo Psychiatric History: Reports: Anxiety, Depression, Panic Attack Endocrine/Metabolic History: Reports: Diabetes, Type II, IDDM, Obesity/BMI 30+, Other (See Below) Other Endocrine/Metabolic History: Is on UV insulin bid. does not know the exact name. Hematologic History: Reports: Blood Transfusion(s) Immunologic History: Reports: None Oncologic (Cancer) History: Reports: None, Other (See Below) Other Oncologic History: tumor removed from right breat non concerous 2017 Dermatologic History: Reports: Cellulitis, Other (See Below) Other Dermatologic History: skin condition right forehead and orbital, t hroughout body. - Infectious Disease History Infectious Disease History: Reports: MRSA - Past Surgical History Head Surgeries/Procedures: Reports: None Respiratory Surgical History: Reports: None GI Surgical History: Reports: Cholecystectomy Female Surgical History: Reports: Hysterectomy, Other (See Below) Other Female Surgeries/Procedures: Tumor to rt. breast. Social & Family History - Family History Family Medical History: Noncontributory Cardiac: Reports: Hypertension Other Cardiac Family History: Mother Respiratory: Reports: COPD Other Respiratory Family Hisory: Mother OBGYN: Reports: Endometriosis Other OBGYN Family History: Mother Endocrine/Metabolic: Reports: Diabetes, type II Other Endocrine/Metabolic Family History: mother - Tobacco Use Smoking Status *Q: Current Every Day Smoker Years of Tobacco use: 30 Packs/Tins Daily: 1 Second Hand Smoke Exposure: Yes - Caffeine Use Caffeine Use: Reports: Coffee, Soda - Recreational Drug Use Recreational Drug Use: No - Sexual History Sexual History: Reports: Sexually Active - Living Situation & Occupation Living situation: Reports: , with Family Occupation: Unemployed ED ROS GENERAL - Review of Systems Review Of Systems: Comprehensive ROS is negative, except as noted in HPI. ED EXAM, SKIN/RASH Exam: See Below Exam Limited By: No Limitations General Appearance: Alert, WD/WN, Mild Distress Ears: Normal External Exam, Hearing Grossly Normal Nose: Normal Inspection, No Blood Throat/Mouth: Normal Inspection, Normal Voice Head: Atraumatic Respiratory/Chest: No Respiratory Distress, Normal Breath Sounds Cardiovascular: Normal Peripheral Pulses, Regular Rate, Rhythm GI/Abdominal: Normal Bowel Sounds, Soft, No Distention Extremities: Normal Inspection Neurological: Alert, Oriented Skin: Other (Tender, [id number] abscess noted inferior to gluteal fold and medial.) Course - Re-Assessments/Exams Free Text/Narrative Re-Assessment/Exam: 05/02/20 20:[address] Villa, general surgery, who is agreeable to seeing patient for possible I&D. Discussed case with Dr. Phelps, hospitalist, for admission and management of medical conditions. He has agreed to admission and will manage the patient on the medical floor. Departure - Departure Time of Disposition: 21:30 Disposition: Admitted As Inpatient 64 Clinical Impression: Abscess - Discharge Information *PRESCRIPTION DRUG MONITORING PROGRAM REVIEWED*: No *COPY OF PRESCRIPTION DRUG MONITORING REPORT IN PATIENT ELEANOR: No Sepsis Event Note (ED) - Evaluation Sepsis Screening Result: No Definite Risk <Romelia Mendoza - Last Filed: 05/03/20 02:20> Course - Vital Signs Last Recorded V/S: Last Vital Signs Temp 98.7 F 05/02/20 21:22 Pulse 90 05/02/20 21:22 Resp 16 05/02/20 21:22 BP 122/64 05/02/20 21:22 Pulse Ox 98 05/02/20 22:13 - Orders/Labs/Meds Orders: Active Orders 24 hr Category Date Time Status Glucose [Blood Glucose Check, Bedside] [RC] QIDACANDBED Care 05/02/20 22:11 Ac tive Notify Provider Consults [RC] ASDIRECTED Care 05/02/20 22:08 Active Peripheral IV Care [RC] . DIRECTED Care 05/02/20 20:51 Active Consult to Physician [CONS] Routine Cons 05/02/20 22:07 Ordered BASIC METABOLIC PANEL,BMP [CHEM] AM Lab 05/03/20 05:15 Ordered CBC WITH AUTO DIFF [HEME] AM Lab 05/03/20 05:15 Ordered CULTURE ANAEROBIC [RM] Routine Lab 05/02/20 22:09 Ordered CULTURE BLOOD [BC] Stat Lab 05/02/20 21:00 Results CULTURE BLOOD [BC] Stat Lab 05/02/20 21:07 Received CULTURE WOUND + SMEAR [RM] Routine Lab 05/02/20 22:10 Ordered Clindamycin Phosphate [Cleocin] 600 mg Med 05/03/20 08:00 Active Sodium Chloride 0.9% [Normal Saline] 100 ml IV Q8H Dextrose 50% in Water Med 05/02/20 22:11 Active 25 ml IVPUSH Q1H PRN Sodium Chloride 0.9% [Saline Flush] Med 05/02/20 20:50 Active 10 ml FLUSH ASDIRECTED PRN Blood Culture x2 Reflex Set [OM.PC] Stat Oth 05/02/20 20:51 Ordered Peripheral IV Insertion Adult [OM.PC] Stat Oth 05/02/20 20:51 Ordered Medication Orders Acetaminophen (Tylenol) 650 mg PO Q4H PRN PRN Reason: Pain (Mild 1-3)/fever Cyclobenzaprine HCl (Flexeril) 10 mg PO Q8H PRN PRN Reason: Spasms Dextrose/Water (Dextrose 50% In Water) 25 ml IVPUSH Q1H PRN PRN Reason: blood sugar <70 Docusate Sodium (Colace) 100 mg PO BID PRN PRN Reason: Constipation Gabapentin (Neurontin) 600 mg PO TID [facility] Heparin Sodium (Porcine) (Heparin Sodium) 5,000 units SUBCUT Q8HR [facility] Hydromorphone HCl (Dilaudid) 0.5 mg IVPUSH Q2H PRN PRN Reason: Pain (severe 7-10) Last Admin: 05/02/20 23:10 Dose: 0.5 mg Documented by: TRISTON Clindamycin Phosphate 600 mg/ (Sodium Chloride) 104 mls @ 200 mls/hr IV Q8H [facility] Sodium Chloride (Normal Saline) 1,000 mls @ 150 mls/hr IV ASDIRECTED [facility] Last Admin: 05/03/20 00:11 Dose: 150 mls/hr Documented by: TRISTON Insulin Glargine (Lantus) 75 unit SUBCUT BID [facility] Last Admin: 05/02/20 22:33 Dose: 75 units Documented by: TRISTON Insulin Human Lispro (Humalog) 30 unit SUBCUT TIDMEALS [facility] Insulin Human Lispro (Humalog) 0 unit SUBCUT QIDACANDBED [facility]; Protocol Last Admin: 05/02/20 22:35 Dose: 15 units Documented by: TRISTON Ondansetron HCl (Zofran Odt) 4 mg PO Q6H PRN PRN Reason: nausea, able to take PO Ondansetron HCl (Zofran) 4 mg IVPUSH Q4H PRN PRN Reason: Nausea/Vomiting Oxycodone HCl (Oxycodone) 5 mg PO Q4H PRN PRN Reason: Pain (moderate 4-6) Last Admin: 05/02/20 22:30 Dose: 5 mg Documented by: TRISTON Sertraline HCl (Zoloft) 200 mg PO BEDTIME [facility] Sodium Chloride (Saline Flush) 10 ml FLUSH ASDIRECTED PRN PRN Reason: Keep Vein Open Last Admin: 05/03/20 00:11 Dose: 10 ml Documented by: Admin: 05/02/20 22:28 Dose: 10 ml Documented by: Admin: 05/02/20 22:21 Dose: 10 ml Documented by: Admin: 05/02/20 21:19 Dose: 10 ml Documented by: ALYSA Temazepam (Restoril) 15 mg PO BEDTIME PRN PRN Reason: Sleep Trazodone HCl (Trazodone) 50 mg PO BEDTIME [facility] Labs: Laboratory Tests 05/02/20 05/02/20 05/02/20 Range/Units 21:00 21:00 21:00 WBC 12.9 H (5.0-10.0) 10^3/uL RBC 5.29 (4.2-5.4) 10^6/uL Hgb 14.7 (12.0-16.0) g/dL Hct 44.2 (37.0-47.0) % MCV 83.6 (80-100) fL MCH 27.8 (27.0-34.0) pg MCHC 33.3 (33.0-35.0) g/dL Plt Count 287 (150-450) 10^3/uL Neut % (Auto) 75.1 (42.2-75.2) % Lymph % (Auto) 15.2 L (20.5-50.1) % [place] % (Auto) 6.9 (2-8) % Eos % (Auto) 2.6 (1.0-3.0) % Baso % (Auto) 0.2 (0.0-1.0) % Sodium 133 L (136-145) mmol/L Potassium 4.2 (3.5-5.1) mmol/L Chloride 96 L (98-107) mmol/L Carbon Dioxide 30 (21-32) mmol/L Anion Gap 11.2 (7-13) mEq/L BUN 11 (7-18) mg/dL Creatinine 1.08 H (0.55-1.02) mg/dL Est Cr Clr Drug Dosing 67.30 mL/min Estimated GFR (MDRD) 54 BUN/Creatinine Ratio 10.2 (No establ ref range) Glucose 442 H* (74-99) mg/dL Lactic Acid 1.4 (0.4-2.0) mmol/L Calcium 8.6 (8.5-10.1) mg/dL Total Bilirubin 0.4 (0.2-1.0) mg/dL AST 11 L (15-37) U/L ALT 25 (14-59) U/L Alkaline Phosphatase 183 H (46-116) U/L Total Protein 8.3 H (6.4-8.2) g/dL Albumin 3.0 L (3.4-5.0) g/dL Globulin 5.3 Albumin/Globulin Ratio 0.57 Meds: Medications Generic Name Dose Route Start Last Admin Trade Name Freq PRN Reason Stop Dose Admin Acetaminophen 650 mg 05/02/20 22:13 Tylenol PO Q4H PRN Pain (Mild 1-3)/fever Cyclobenzaprine HCl 10 mg 05/02/20 22:15 Flexeril PO Q8H PRN Spasms Dextrose/Water 25 ml 05/02/20 22:11 Dextrose 50% In Water IVPUSH Q1H PRN blood sugar <70 Docusate Sodium 100 mg 05/02/20 22:13 Colace PO BID PRN Constipation Gabapentin 600 mg 05/03/20 09:00 Neurontin PO TID [facility] Heparin Sodium (Porcine) 5,000 units 05/03/20 06:00 Heparin Sodium SUBCUT Q8HR [facility] Hydromorphone HCl 0.5 mg 05/02/20 22:13 05/02/20 23:10 Dilaudid IVPUSH 0.5 mg Q2H PRN Administration Pain (severe 7-10) Clindamycin Phosphate 600 mg/ 104 mls @ 200 mls/hr 05/03/20 08:00 Sodium Chloride IV Q8H [facility] Sodium Chloride 1,000 mls @ 150 mls/hr 05/02/20 22:30 05/03/20 00:11 Normal Saline IV 150 mls/hr ASDIRECTED [facility] Administration Insulin Glargine 75 unit 05/02/20 22:30 05/02/20 22:33 Lantus SUBCUT 75 units BID [facility] Administration Insulin Human Lispro 30 unit 05/03/20 08:00 Humalog SUBCUT TIDMEALS [facility] Insulin Human Lispro 0 unit 05/02/20 22:30 05/02/20 22:35 Humalog SUBCUT 15 units QIDACANDBED [facility] Administration Protocol Ondansetron HCl 4 mg 05/02/20 22:13 Zofran Odt PO Q6H PRN nausea, able to take PO Ondansetron HCl 4 mg 05/02/20 22:13 Zofran IVPUSH Q4H PRN Nausea/Vomiting Oxycodone HCl 5 mg 05/02/20 22:13 05/02/20 22:30 Oxycodone PO 5 mg Q4H PRN Administration Pain (moderate 4-6) Sertraline HCl 200 mg 05/03/20 21:00 Zoloft PO BEDTIME [facility] Sodium Chloride 10 ml 05/02/20 20:50 05/03/20 00:11 Saline Flush FLUSH 10 ml ASDIRECTED PRN Administration Keep Vein Open Temazepam 15 mg 05/02/20 22:13 Restoril PO BEDTIME PRN Sleep Trazodone HCl 50 mg 05/03/20 21:00 Trazodone PO BEDTIME [facility] Discontinued Medications Generic Name Dose Route Start Last Admin Trade Name Freq PRN Reason Stop Dose Admin Fentanyl 50 mcg 05/02/20 21:04 05/02/20 21:17 Sublimaze IVPUSH 05/02/20 21:05 50 mcg ONETIME ONE Administration Vancomycin HCl 1 gm/ Sodium 250 mls @ 167 mls/hr 05/02/20 21:03 05/02/20 22:27 Chloride IV 05/02/20 22:32 167 mls/hr ONETIME ONE Administration Levofloxacin/Dextrose 500 mg/ 100 mls @ 100 mls/hr 05/02/20 21:04 05/02/20 22:20 Premix IV 05/02/20 22:03 Infused ONETIME ONE Infusion Insulin Human Lispro 0 unit 05/03/20 07:00 Humalog SUBCUT QIDACANDBED [facility] Protocol Ondansetron HCl 4 mg 05/02/20 21:12 05/02/20 21:16 Zofran IVPUSH 05/02/20 21:13 4 mg ONETIME ONE Administration - Re-Assessments/Exams Free Text/Narrative Re-Assessment/Exam: 05/03/20 02:20 I saw and evaluated the patient. Discussed with resident and agree with residents findings and plan as documented in the residents note. Departure - Departure Condition: Fair Sepsis Event Note (ED) - Focused Exam Vital Signs: Vital Signs Temp Pulse Resp BP Pulse Ox 05/02/20 21:22 98.7 F 90 16 122/64 98 05/02/20 19:50 97.6 F 122 H 18 140/89 99 - My Orders Last 24 Hours: My Active Orders 05/02/20 20:50 Sodium Chloride 0.9% [Saline Flush] 10 ml FLUSH ASDIRECTED PRN 05/02/20 20:51 Peripheral IV Care [RC] . DIRECTED Blood Culture x2 Reflex Set [OM.PC] Stat Peripheral IV Insertion Adult [OM.PC] Stat 05/02/20 21:00 CULTURE BLOOD [BC] Stat 05/02/20 21:07 CULTURE BLOOD [BC] Stat - Assessment/Plan Last 24 Hours: My Active Orders 05/02/20 20:50 Sodium Chloride 0.9% [Saline Flush] 10 ml FLUSH ASDIRECTED PRN 05/02/20 20:51 Peripheral IV Care [RC] . DIRECTED Blood Culture x2 Reflex Set [OM.PC] Stat Peripheral IV Insertion Adult [OM.PC] Stat 05/02/20 21:00 CULTURE BLOOD [BC] Stat 05/02/20 21:07 CULTURE BLOOD [BC] Stat
[2020-05-02] MEDS ORDERED: Levofloxacin/Dextrose 5%-Water 500 MG in Premix Bag 1 BAG IV ONE (21:04)
[2020-05-02] MEDS ORDERED: fentaNYL 100 MCG/2 ML SDV IVPUSH ONE (21:04)
[2020-05-02] MEDS ORDERED: Ondansetron 4 MG/2 ML SDV IVPUSH ONE (21:12)
[2020-05-02] MEDS: Sodium Chloride 0.9% 10 ML Syringe FLUSH PRN ×3 (21:19→22:28)
[2020-05-02 21:32] LABS: ANION GAP 11.2 mEq/L (7-13)
[2020-05-02] MEDS ORDERED: 50% Dextrose in Water 50 ML Syringe IVPUSH PRN (22:11)
[2020-05-02] MEDS ORDERED: Acetaminophen 325 MG Tab PO PRN (22:13)
[2020-05-02] MEDS ORDERED: Ondansetron 4 MG Tab.DIS PO PRN (22:13)
[2020-05-02] MEDS ORDERED: Ondansetron 4 MG/2 ML SDV IVPUSH PRN (22:13)
[2020-05-02] MEDS ORDERED: Temazepam 15 MG Cap PO PRN (22:13)
[2020-05-02] MEDS ORDERED: Docusate Sodium 100 MG Cap PO PRN (22:13)
[2020-05-02] MEDS ORDERED: Cyclobenzaprine 10 MG Tab PO PRN (22:15)
[2020-05-02] MEDS: oxyCODONE 5 MG Tab PO PRN (22:30)
[2020-05-02] MEDS: Insulin Glarg,Human.Rec.Analog 100 Unit/ML SUBCUT SCH (22:33)
[2020-05-02] MEDS: Insulin Lispro 100 Units/ML 3 ML Vial SUBCUT SCH (22:35)
--- NOTE | 2020-05-02 22:50 | PCM.HP ---
H&P History of Present Illness - General Date of Service: 05/02/20 Admit Problem/Dx: Admission Diagnosis/Problem Admission Diagnosis/Problem Abscess Source of Information: Patient, Provider (ER) - History of Present Illness Initial Comments - Free Text/Narative: 45-year-old lady with a history of poorly controlled diabetes and blood sugars in the 200s, hydradenitis suppurativa with frequent abscess formations. In the past the patient was on Bactrim, clindamycin, vancomycin. Last hospitalization about 3 years ago. The patient is on chronic continuous narcotic oral medications. She developed "bump on the left buttock" Sunday. This gradually increased in size, has severe tenderness on touching. No drainage. No fever but feeling chills. Malaise and low oral intake. Right Upper Leg Pain Score (Numeric/FACES): 8 - Related Data Allergies/Adverse Reactions: Allergies Allergy/AdvReac Type Severity Reaction Status Date / Time bee venom protein (honey bee) Allergy Airway Verified 05/02/20 21:40 Tightness diphenhydramine HCl Allergy Anxiety Verified 05/02/20 21:40 [From Benadryl] penicillin Allergy Airway Verified 05/02/20 21:40 Tightness Home Medications: Home Meds Sertraline HCl [Zoloft] 200 mg PO BEDTIME 01/11/16 [History] Cyclobenzaprine [Flexeril] 10 mg PO Q8H PRN 12/19/16 [History] Hydrocodone/Acetaminophen [Hydrocodone-Acetamin 5-325 mg] 1 tab PO TID PRN 12/19/16 [History] metFORMIN [Glucophage] 1,000 mg PO BIDMEALS 04/09/17 [History] Insulin Aspart [NovoLOG] 30 units SQ TIDMEALS 07/28/18 [History] traZODone HCl [Trazodone HCl] 50 mg PO BEDTIME 07/28/18 [History] Insulin Degludec [Tresiba Flextouch U-100] 75 units SQ BID 09/10/18 [History] Gabapentin [Neurontin] 600 mg PO TID 05/02/20 [History] Past Medical History - Past Health History Medical/Surgical History: Denies Medical/Surgical History HEENT History: Reports: Other (See Below) Other HEENT History: astygmatism Cardiovascular History: Reports: None Respiratory History: Reports: Bronchitis, Recurrent Gastrointestinal History: Reports: Cholelithiasis Other Gastrointestinal History: liver abscess x5 Genitourinary History: Reports: Diabetic Nephropathy IT CONSULTANT History: Reports: Endometriosis, Other OB/BYN History: 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 Patient states she had a hysterectomy Musculoskeletal History: Reports: Fibromyalgia Neurological History: Reports: Migraines, Neuropathy, Diabetic, Neuropathy, Peripheral, Vertigo Psychiatric History: Reports: Anxiety, Depression, Panic Attack Endocrine/Metabolic History: Reports: Diabetes, Type II, IDDM, Obesity/BMI 30+ Other Endocrine/Metabolic History: Is on UV insulin bid. does not know the exact name. 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 - Infectious Disease History Infectious Disease History: Reports: None - Past Surgical History Head Surgeries/Procedures: Reports: None Respiratory Surgical History: Reports: None GI Surgical History: Reports: Cholecystectomy Female Surgical History: Reports: Hysterectomy, Other (See Below) Other Female Surgeries/Procedures: Tumor to rt. breast. Social & Family History - Family History Family Medical History: Noncontributory Cardiac: Reports: Hypertension Other Cardiac Family History: Mother Respiratory: Reports: COPD Other Respiratory Family Hisory: Mother OBGYN: Reports: Endometriosis Other OBGYN Family History: Mother Endocrine/Metabolic: Reports: Diabetes, type II Other Endocrine/Metabolic Family History: mother - Tobacco Use Smoking Status *Q: Current Every Day Smoker Years of Tobacco use: 33 Packs/Tins Daily: 1 Tobacco Use Comment: pt does not want a patch Second Hand Smoke Exposure: Yes - Caffeine Use Caffeine Use: Reports: Coffee, Soda - Recreational Drug Use Recreational Drug Use: No - Sexual History Sexual History: Reports: Sexually Active - Living Situation & Occupation Living situation: Reports: , with Family Occupation: Unemployed H&P Review of Systems - Review of Systems: Review Of Systems: See Below General: Reports: Chills, Malaise, Decreased Appetite. Denies: Fever Pulmonary: Denies: Shortness of Breath Cardiovascular: Denies: Chest Pain, Edema Gastrointestinal: Denies: Abdominal Pain Genitourinary: Denies: Dysuria Musculoskeletal: Denies: Neck Pain Skin: Reports: Other (right buttock tenderness) Neurological: Denies: Confusion Exam - Exam Exam: See Below - Vital Signs Vital Signs: Last Vital Signs Temp 98.7 F 05/02/20 21:22 Pulse 90 05/02/20 21:22 Resp 16 05/02/20 21:22 BP 122/64 05/02/20 21:22 Pulse Ox 98 05/02/20 21:22 Weight: 246 lb 12.8 oz - Exam General: Alert, Oriented Neck: Supple Lungs: Clear to Auscultation, Normal Respiratory Effort Cardiovascular: Regular Rate, Regular Rhythm GI/Abdominal Exam: Normal Bowel Sounds, Soft, Non-Tender Extremities: No Pedal Edema Skin: Other (Bilateral buttock with multiple areas of scarring. r buttock Indurated area which is tender to touch measuring about 2 x 3".) - Patient Data Lab Results Last 24 hrs: Laboratory Results - last 24 hr 05/02/20 05/02/20 05/02/20 Range/Units 21:00 21:00 21:00 WBC 12.9 H (5.0-10.0) 10^3/uL RBC 5.29 (4.2-5.4) 10^6/uL Hgb 14.7 (12.0-16.0) g/dL Hct 44.2 (37.0-47.0) % MCV 83.6 (80-100) fL MCH 27.8 (27.0-34.0) pg MCHC 33.3 (33.0-35.0) g/dL Plt Count 287 (150-450) 10^3/uL Neut % (Auto) 75.1 (42.2-75.2) % Lymph % (Auto) 15.2 L (20.5-50.1) % [place] % (Auto) 6.9 (2-8) % Eos % (Auto) 2.6 (1.0-3.0) % Baso % (Auto) 0.2 (0.0-1.0) % Sodium 133 L (136-145) mmol/L Potassium 4.2 (3.5-5.1) mmol/L Chloride 96 L (98-107) mmol/L Carbon Dioxide 30 (21-32) mmol/L Anion Gap 11.2 (7-13) mEq/L BUN 11 (7-18) mg/dL Creatinine 1.08 H (0.55-1.02) mg/dL Est Cr Clr Drug Dosing 67.30 mL/min Estimated GFR (MDRD) 54 BUN/Creatinine Ratio 10.2 (No establ ref range) Glucose 442 H* (74-99) mg/dL POC Glucose (70-105) mg/dl Lactic Acid 1.4 (0.4-2.0) mmol/L Calcium 8.6 (8.5-10.1) mg/dL Total Bilirubin 0.4 (0.2-1.0) mg/dL AST 11 L (15-37) U/L ALT 25 (14-59) U/L Alkaline Phosphatase 183 H (46-116) U/L Total Protein 8.3 H (6.4-8.2) g/dL Albumin 3.0 L (3.4-5.0) g/dL Globulin 5.3 Albumin/Globulin Ratio 0.57 /12/20 Range/Units 22:14 WBC (5.0-10.0) 10^3/uL RBC (4.2-5.4) 10^6/uL Hgb (12.0-16.0) g/dL Hct (37.0-47.0) % MCV (80-100) fL MCH (27.0-34.0) pg MCHC (33.0-35.0) g/dL Plt Count (150-450) 10^3/uL Neut % (Auto) (42.2-75.2) % Lymph % (Auto) (20.5-50.1) % [place] % (Auto) (2-8) % Eos % (Auto) (1.0-3.0) % Baso % (Auto) (0.0-1.0) % Sodium (136-145) mmol/L Potassium (3.5-5.1) mmol/L Chloride (98-107) mmol/L Carbon Dioxide (21-32) mmol/L Anion Gap (7-13) mEq/L BUN (7-18) mg/dL Creatinine (0.55-1.02) mg/dL Est Cr Clr Drug Dosing mL/min Estimated GFR (MDRD) BUN/Creatinine Ratio (No establ ref range) Glucose (74-99) mg/dL POC Glucose 404 H* (70-105) mg/dl Lactic Acid (0.4-2.0) mmol/L Calcium (8.5-10.1) mg/dL Total Bilirubin (0.2-1.0) mg/dL AST (15-37) U/L ALT (14-59) U/L Alkaline Phosphatase (46-116) U/L Total Protein (6.4-8.2) g/dL Albumin (3.4-5.0) g/dL Globulin Albumin/Globulin Ratio Result Diagrams: 05/02/20 21:00 05/02/20 21:00 - Problem List (1) Abscess and cellulitis SNOMED Code(s): 633479947 ICD Code: L03.90 - CELLULITIS, UNSPECIFIED; L02.91 - CUTANEOUS ABSCESS, UNSPECIFIED Status: Acute Current Visit: No (2) Hidradenitis suppurativa SNOMED Code(s): 72768207 ICD Code: L73.2 - HIDRADENITIS SUPPURATIVA Status: Acute Current Visit: No (3) Insulin dependent diabetes mellitus SNOMED Code(s): 68155717 ICD Code: E11.9 - TYPE 2 DIABETES MELLITUS WITHOUT COMPLICATIONS; Z79.4 - HEALTH AND WELLNESS DIRECTOR (CURRENT) USE OF INSULIN Status: Acute Current Visit: No (4) Fibromyalgia SNOMED Code(s): 734883619 ICD Code: M79.7 - FIBROMYALGIA Status: Chronic Current Visit: No (5) Uncontrolled type 2 diabetes mellitus SNOMED Code(s): 252788804, 943673100 ICD Code: E11.65 - TYPE 2 DIABETES MELLITUS WITH HYPERGLYCEMIA Status: Chronic Current Visit: No Problem List Initiated/Reviewed/Updated: Yes Orders Last 24hrs: Active Orders 24 hr Category Date Time Status Patient Status [ADT] Routine ADT 05/02/20 22:13 Ordered Antiembolic Devices [RC] PER UNIT ROUTINE Care 05/02/20 22:15 Ordered Glucose [Blood Glucose Check, Bedside] [RC] QIDACANDBED Care 05/02/20 22:11 Ordered Notify Provider Consults [RC] ASDIRECTED Care 05/02/20 22:08 Ordered Oxygen Therapy [RC] PRN Care 05/02/20 22:13 Ordered Peripheral IV Care [RC] . DIRECTED Care 05/02/20 20:51 Active Up With Assistance [RC] ASDIRECTED Care 05/02/20 22:13 Ordered VTE/DVT Education [RC] PER UNIT ROUTINE Care 05/02/20 22:13 Ordered Vital Signs [RC] Q4H Care 05/02/20 22:13 Ordered Consult to Physician [CONS] Routine Cons 05/02/20 22:07 Ordered Consistent Carbohydrate Diet [DIET] Diet 05/02/20 Breakfast Active NPO After Midnight [Nothing per Oral After Midnight Diet 05/03/20 Breakfast Ordered Diet] [DIET] BASIC METABOLIC PANEL,BMP [CHEM] AM Lab 05/03/20 05:15 Ordered CBC WITH AUTO DIFF [HEME] AM Lab 05/03/20 05:15 Ordered CULTURE ANAEROBIC [RM] Routine Lab 05/02/20 22:09 Ordered CULTURE BLOOD [BC] Stat Lab 05/02/20 21:00 Received CULTURE BLOOD [BC] Stat Lab 05/02/20 21:07 Received CULTURE WOUND + SMEAR [RM] Routine Lab 05/02/20 22:10 Ordered Acetaminophen [Tylenol] Med 05/02/20 22:13 Ordered 650 mg PO Q4H PRN Clindamycin Phosphate [Cleocin] 600 mg Med 05/03/20 08:00 Ordered Sodium Chloride 0.9% [Normal Saline] 100 ml IV Q8H Cyclobenzaprine [Flexeril] Med 05/02/20 22:15 Ordered 10 mg PO Q8H PRN Dextrose 50% in Water Med 05/02/20 22:11 Ordered 25 ml IVPUSH Q1H PRN Docusate Sodium [Colace] Med 05/02/20 22:13 Ordered 100 mg PO BID PRN Gabapentin Med 05/03/20 09:00 Ordered 600 mg PO TID HYDROmorphone [Dilaudid] Med 05/02/20 22:13 Ordered 0.5 mg IVPUSH Q2H PRN Heparin Sodium Med 05/03/20 06:00 Ordered 5,000 units SUBCUT Q8HR Insulin Aspart [NovoLOG] Med 05/03/20 08:00 Ordered 30 units SQ TIDMEALS Insulin Glarg,Human.Rec.Analog [LantUS] Med 05/02/20 22:30 Ordered 75 unit SUBCUT BID Insulin Lispro [HumaLOG] Med 05/02/20 22:30 Active 0 unit SUBCUT QIDACANDBED Ondansetron [Zofran ODT] Med 05/02/20 22:13 Ordered 4 mg PO Q6H PRN Ondansetron [Zofran] Med 05/02/20 22:13 Ordered 4 mg IVPUSH Q4H PRN Sertraline HCl [Zoloft] Med 05/03/20 21:00 Ordered 200 mg PO BEDTIME Sodium Chloride 0.9% @ 150 MLS/HR (1000ml) Med 05/02/20 22:30 Ordered Sodium Chloride 0.9% [Normal Saline] 1,000 ml IV ASDIRECTED Sodium Chloride 0.9% [Saline Flush] Med 05/02/20 20:50 Active 10 ml FLUSH ASDIRECTED PRN Temazepam [Restoril] Med 05/02/20 22:13 Ordered 15 mg PO BEDTIME PRN oxyCODONE Med 05/02/20 22:13 Ordered 5 mg PO Q4H PRN traZODone Med 05/03/20 21:00 Ordered 50 mg PO BEDTIME Antiembolic Hose [OM.PC] Per Unit Routine Ot 05/02/20 22:14 Ordered Blood Culture x2 Reflex Set [OM.PC] Stat Oth 05/02/20 20:51 Ordered Peripheral IV Insertion Adult [OM.PC] Stat Oth 05/02/20 20:51 Ordered Resuscitation Status Routine Resus Stat 05/02/20 22:13 Ordered Medication Orders Acetaminophen (Tylenol) 650 mg PO Q4H PRN PRN Reason: Pain (Mild 1-3)/fever Cyclobenzaprine HCl (Flexeril) 10 mg PO Q8H PRN PRN Reason: Spasms Dextrose/Water (Dextrose 50% In Water) 25 ml IVPUSH Q1H PRN PRN Reason: blood sugar <70 Docusate Sodium (Colace) 100 mg PO BID PRN PRN Reason: Constipation Gabapentin (Neurontin) 600 mg PO TID [facility] Heparin Sodium (Porcine) (Heparin Sodium) 5,000 units SUBCUT Q8HR [facility] Hydromorphone HCl (Dilaudid) 0.5 mg IVPUSH Q2H PRN PRN Reason: Pain (severe 7-10) Clindamycin Phosphate 600 mg/ (Sodium Chloride) 104 mls @ 200 mls/hr IV Q8H [facility] Sodium Chloride (Normal Saline) 1,000 mls @ 150 mls/hr IV ASDIRECTED [facility] Insulin Glargine (Lantus) 75 unit SUBCUT BID [facility] Last Admin: 05/02/20 22:33 Dose: 75 units Documented by: TRISTON Insulin Human Lispro (Humalog) 0 unit SUBCUT QIDACANDBED [facility]; Protocol Last Admin: 05/02/20 22:35 Dose: 15 units Documented by: TRISTON Non-Formulary Medication (Insulin Aspart [Novolog]) 30 units SQ TIDMEALS [facility] Non-Formulary Medication (Sertraline Hcl [Zoloft]) 200 mg PO BEDTIME [facility] Ondansetron HCl (Zofran Odt) 4 mg PO Q6H PRN PRN Reason: nausea, able to take PO Ondansetron HCl (Zofran) 4 mg IVPUSH Q4H PRN PRN Reason: Nausea/Vomiting Oxycodone HCl (Oxycodone) 5 mg PO Q4H PRN PRN Reason: Pain (moderate 4-6) Last Admin: 05/02/20 22:30 Dose: 5 mg Documented by: TRISTON Sodium Chloride (Saline Flush) 10 ml FLUSH ASDIRECTED PRN PRN Reason: Keep Vein Open Last Admin: 05/02/20 22:28 Dose: 10 ml Documented by: Admin: 05/02/20 22:21 Dose: 10 ml Documented by: Admin: 05/02/20 21:19 Dose: 10 ml Documented by: ALYSA Temazepam (Restoril) 15 mg PO BEDTIME PRN PRN Reason: Sleep Trazodone HCl (Trazodone) 50 mg PO BEDTIME [facility] Assessment/Plan Comment:: 45-year-old with a poorly controlled diabetes, hydradenitis suppurativa, presented with right buttock cellulitis and abscess. Right buttock cellulitis with abscess Obtain blood culture Consulted and discussed with surgery, incision and drainage is planned for t omorrow morning Keep nothing by mouth Obtain narrowband other up cultures from surgical specimen The patient received vancomycin and levofloxacin in the ER We'll continue with IV clindamycin Diabetes Poorly controlled Hydrate well Continue long-acting insulin along with mealtime insulin Supplemental insulin and hypoglycemia protocol as needed Chronic pain, chronic continuous narcotic use Use oxycodone for moderate pain, hydrocodone for severe pain DVT prophylaxis with subcutaneous heparin
[2020-05-02] MEDS: HYDROmorphone 1 MG/ML Syringe IVPUSH PRN (23:10)
[2020-05-03] MEDS: Sodium Chloride 0.9% 1,000 ML IV SCH ×2 (00:11→07:10)
[2020-05-03] MEDS: Sodium Chloride 0.9% 10 ML Syringe FLUSH PRN ×6 (00:11→23:24)
[2020-05-03] MEDS: HYDROmorphone 1 MG/ML Syringe IVPUSH PRN ×8 (02:43→20:42)
[2020-05-03] MEDS: Heparin Sodium 5,000 Units/ML Vial SUBCUT SCH ×3 (05:30→21:45)
[2020-05-03 06:23] LABS: ANION GAP 10.9 mEq/L (7-13); CHLORIDE,CL 103 mmol/L (98-107); SODIUM,NA 137 mmol/L (136-145)
[2020-05-03] MEDS ORDERED: Insulin Lispro 100 Units/ML 3 ML Vial SUBCUT SCH (07:00)
[2020-05-03] MEDS ORDERED: Lidocaine 1% 30 ML SDV ONE (07:59)
[2020-05-03] MEDS ORDERED: Clindamycin Phosphate 600 MG in Sodium Chloride 0.9% 100 ML IV SCH (08:00)
--- NOTE | 2020-05-03 08:33 | PCM.SN.2 ---
- Free Text/Narrative Note: Patient presents to ER with several day history of large abscess right medial upper thigh. She has had multiple episodes of I&D in the past. Almost evidence of hidradinitis. Measures about 8-10 cm in diameter. Discussed risks, benefits and outcomes of I&D in operating room today. Plan on would pack with dressing changes post-op.
[2020-05-03] MEDS: Gabapentin 300 MG Cap PO SCH ×3 (09:00→20:16)
[2020-05-03] MEDS: Insulin Lispro 100 Units/ML 3 ML Vial SUBCUT SCH ×7 (09:11→20:19)
[2020-05-03] MEDS: Insulin Glarg,Human.Rec.Analog 100 Unit/ML SUBCUT SCH ×2 (10:52→20:18)
--- NOTE | 2020-05-03 11:24 | PCM.PN ---
- General Info Date of Service: 05/03/20 Admission Dx/Problem (Free Text): Admission Diagnosis/Problem Admission Diagnosis/Problem Abscess Subjective Update: had I&D today, d/w dr. Luke - abscess drained pt reports moderate pain during last night. Associated with no fever. Worse with touching. Started prior to admission. - Review of Systems General: Denies: Fever Pulmonary: Denies: Shortness of Breath Cardiovascular: Denies: Chest Pain, Edema - Patient Data Vitals - Most Recent: Last Vital Signs Temp 97.0 F 05/03/20 09:52 Pulse 87 05/03/20 10:28 Resp 16 05/03/20 10:28 BP 102/87 05/03/20 10:28 Pulse Ox 95 05/03/20 10:28 Weight - Most Recent: 246 lb 12.8 oz I&O - Last 24 Hours: Intake & Output 05/02/20 05/03/20 05/03/20 22:59 06:59 14:59 Intake Total 157 482 1377 Balance 504 325 6755 Lab Results Last 24 Hours: Laboratory Results - last 24 hr 05/02/20 05/02/20 05/02/20 Range/Units 21:00 21:00 21:00 WBC 12.9 H (5.0-10.0) 10^3/uL RBC 5.29 (4.2-5.4) 10^6/uL Hgb 14.7 (12.0-16.0) g/dL Hct 44.2 (37.0-47.0) % MCV 83.6 (80-100) fL MCH 27.8 (27.0-34.0) pg MCHC 33.3 (33.0-35.0) g/dL Plt Count 287 (150-450) 10^3/uL Neut % (Auto) 75.1 (42.2-75.2) % Lymph % (Auto) 15.2 L (20.5-50.1) % [place] % (Auto) 6.9 (2-8) % Eos % (Auto) 2.6 (1.0-3.0) % Baso % (Auto) 0.2 (0.0-1.0) % Sodium 133 L (136-145) mmol/L Potassium 4.2 (3.5-5.1) mmol/L Chloride 96 L (98-107) mmol/L Carbon Dioxide 30 (21-32) mmol/L Anion Gap 11.2 (7-13) mEq/L BUN 11 (7-18) mg/dL Creatinine 1.08 H (0.55-1.02) mg/dL Est Cr Clr Drug Dosing 67.30 mL/min Estimated GFR (MDRD) 54 BUN/Creatinine Ratio 10.2 (No establ ref range) Glucose 442 H* (74-99) mg/dL POC Glucose (70-105) mg/dl Lactic Acid 1.4 (0.4-2.0) mmol/L Calcium 8.6 (8.5-10.1) mg/dL Total Bilirubin 0.4 (0.2-1.0) mg/dL AST 11 L (15-37) U/L ALT 25 (14-59) U/L Alkaline Phosphatase 183 H (46-116) U/L Total Protein 8.3 H (6.4-8.2) g/dL Albumin 3.0 L (3.4-5.0) g/dL Globulin 5.3 Albumin/Globulin Ratio 0.57 COVID-19 ([facility]) (NEGATIVE) 05/02/20 05/03/20 05/03/20 Range/Units 22:14 05:45 05:45 WBC 12.2 H (5.0-10.0) 10^3/uL RBC 4.81 (4.2-5.4) 10^6/uL Hgb 13.4 (12.0-16.0) g/dL Hct 40.6 (37.0-47.0) % MCV 84.4 (80-100) fL MCH 27.9 (27.0-34.0) pg MCHC 33.0 (33.0-35.0) g/dL Plt Count 253 (150-450) 10^3/uL Neut % (Auto) 69.6 (42.2-75.2) % Lymph % (Auto) 18.1 L (20.5-50.1) % [place] % (Auto) 8.8 H (2-8) % Eos % (Auto) 3.3 H (1.0-3.0) % Baso % (Auto) 0.2 (0.0-1.0) % Sodium 137 (136-145) mmol/L Potassium 3.9 (3.5-5.1) mmol/L Chloride 103 (98-107) mmol/L Carbon Dioxide 27 (21-32) mmol/L Anion Gap 10.9 (7-13) mEq/L BUN 12 (7-18) mg/dL Creatinine 0.77 (0.55-1.02) mg/dL Est Cr Clr Drug Dosing 94.39 mL/min Estimated GFR (MDRD) > 60 BUN/Creatinine Ratio (No establ ref range) Glucose 197 H (74-99) mg/dL POC Glucose 404 H* (70-105) mg/dl Lactic Acid (0.4-2.0) mmol/L Calcium 8.0 L (8.5-10.1) mg/dL Total Bilirubin (0.2-1.0) mg/dL AST (15-37) U/L ALT (14-59) U/L Alkaline Phosphatase (46-116) U/L Total Protein (6.4-8.2) g/dL Albumin (3.4-5.0) g/dL Globulin Albumin/Globulin Ratio COVID-19 ([facility]) (NEGATIVE) 05/03/20 05/03/20 05/03/20 Range/Units 07:10 08:23 11:02 WBC (5.0-10.0) 10^3/uL RBC (4.2-5.4) 10^6/uL Hgb (12.0-16.0) g/dL Hct (37.0-47.0) % MCV (80-100) fL MCH (27.0-34.0) pg MCHC (33.0-35.0) g/dL Plt Count (150-450) 10^3/uL Neut % (Auto) (42.2-75.2) % Lymph % (Auto) (20.5-50.1) % [place] % (Auto) (2-8) % Eos % (Auto) (1.0-3.0) % Baso % (Auto) (0.0-1.0) % Sodium (136-145) mmol/L Potassium (3.5-5.1) mmol/L Chloride (98-107) mmol/L Carbon Dioxide (21-32) mmol/L Anion Gap (7-13) mEq/L BUN (7-18) mg/dL Creatinine (0.55-1.02) mg/dL Est Cr Clr Drug Dosing mL/min Estimated GFR (MDRD) BUN/Creatinine Ratio (No establ ref range) Glucose (74-99) mg/dL POC Glucose 183 H 177 H (70-105) mg/dl Lactic Acid (0.4-2.0) mmol/L Calcium (8.5-10.1) mg/dL Total Bilirubin (0.2-1.0) mg/dL AST (15-37) U/L ALT (14-59) U/L Alkaline Phosphatase (46-116) U/L Total Protein (6.4-8.2) g/dL Albumin (3.4-5.0) g/dL Globulin Albumin/Globulin Ratio COVID-19 ([facility]) Negative (NEGATIVE) Derek Results Last 24 Hours: Microbiology 05/03/20 02:30 Gram Stain - Final Skin / Skin Scrapings - Buttock, Right 05/02/20 21:00 Anaerobic Blood Culture - Final Blood - Venous Med Orders - Current: Current Medications Acetaminophen (Tylenol) 650 mg PO Q4H PRN PRN Reason: Pain (Mild 1-3)/fever Cyclobenzaprine HCl (Flexeril) 10 mg PO Q8H PRN PRN Reason: Spasms Dextrose/Water (Dextrose 50% In Water) 25 ml IVPUSH Q1H PRN PRN Reason: blood sugar <70 Docusate Sodium (Colace) 100 mg PO BID PRN PRN Reason: Constipation Gabapentin (Neurontin) 600 mg PO TID [facility] Heparin Sodium (Porcine) (Heparin Sodium) 5,000 units SUBCUT Q8HR [facility] Last Admin: 05/03/20 05:30 Dose: 5,000 units Documented by: Hydromorphone HCl (Dilaudid) 0.5 mg IVPUSH Q2H PRN PRN Reason: Pain (severe 7-10) Last Admin: 05/03/20 10:48 Dose: 0.5 mg Documented by: Sodium Chloride (Normal Saline) 1,000 mls @ 150 mls/hr IV ASDIRECTED [facility] Last Admin: 05/03/20 07:10 Dose: 150 mls/hr Documented by: Clindamycin Phosphate 600 mg/ (Sodium Chloride) 104 mls @ 200 mls/hr IV Q8HR [facility] Insulin Glargine (Lantus) 75 unit SUBCUT BID [facility] Last Admin: 05/03/20 10:52 Dose: Not Given Documented by: Insulin Human Lispro (Humalog) 30 unit SUBCUT TIDMEALS [facility] Last Admin: 05/03/20 09:14 Dose: Not Given Documented by: Insulin Human Lispro (Humalog) 0 unit SUBCUT QIDACANDBED [facility]; Protocol Last Admin: 05/03/20 09:11 Dose: Not Given Documented by: Ondansetron HCl (Zofran Odt) 4 mg PO Q6H PRN PRN Reason: nausea, able to take PO Ondansetron HCl (Zofran) 4 mg IVPUSH Q4H PRN PRN Reason: Nausea/Vomiting Oxycodone HCl (Oxycodone) 5 mg PO Q4H PRN PRN Reason: Pain (moderate 4-6) Last Admin: 05/02/20 22:30 Dose: 5 mg Documented by: Sertraline HCl (Zoloft) 200 mg PO BEDTIME [facility] Sodium Chloride (Saline Flush) 10 ml FLUSH ASDIRECTED PRN PRN Reason: Keep Vein Open Last Admin: 05/03/20 00:11 Dose: 10 ml Documented by: Temazepam (Restoril) 15 mg PO BEDTIME PRN PRN Reason: Sleep Trazodone HCl (Trazodone) 50 mg PO BEDTIME [facility] Discontinued Medications Fentanyl (Sublimaze) 50 mcg IVPUSH ONETIME ONE Stop: 05/02/20 21:05 Last Admin: 05/02/20 21:17 Dose: 50 mcg Documented by: Vancomycin HCl 1 gm/ Sodium (Chloride) 250 mls @ 167 mls/hr IV ONETIME ONE Stop: 05/02/20 22:32 Last Admin: 05/02/20 22:27 Dose: 167 mls/hr Documented by: Levofloxacin/Dextrose 500 mg/ (Premix) 100 mls @ 100 mls/hr IV ONETIME ONE Stop: 05/02/20 22:03 Last Infusion: 05/02/20 22:20 Dose: Infused Documented by: Clindamycin Phosphate 600 mg/ (Sodium Chloride) 104 mls @ 200 mls/hr IV Q8H [facility] Last Infusion: 05/03/20 08:20 Dose: Infused Documented by: Insulin Human Lispro (Humalog) 0 unit SUBCUT QIDACANDBED [facility]; Protocol Lidocaine HCl (Xylocaine-Mpf 1%) Confirm Administered Dose 30 ml .ROUTE .STK-MED ONE Stop: 05/03/20 08:00 Ondansetron HCl (Zofran) 4 mg IVPUSH ONETIME ONE Stop: 05/02/20 21:13 Last Admin: 05/02/20 21:16 Dose: 4 mg Documented by: - Exam General: Alert, Oriented Neck: Supple Lungs: Clear to Auscultation, Normal Respiratory Effort Cardiovascular: Regular Rate, Regular Rhythm GI/Abdominal Exam: Normal Bowel Sounds, Soft, Non-Tender Extremities: No Pedal Edema Skin: Warm, Other (r. buttock packed wound) Sepsis Event Note - Evaluation Sepsis Screening Result: No Definite Risk - Focused Exam Vital Signs: Vital Signs Temp Pulse Resp BP Pulse Ox Pulse Ox 05/03/20 10:28 87 16 102/87 95 05/03/20 10:25 87 16 104/67 95 05/03/20 10:20 86 17 110/71 100 05/03/20 10:15 84 14 113/68 100 05/03/20 10:10 87 9 L 110/70 94 L 05/03/20 10:05 85 16 112/70 100 05/03/20 10:00 86 18 115/72 100 05/03/20 09:55 89 14 118/68 100 05/03/20 09:52 97.0 F 92 11 L 113/68 88 L 100 05/03/20 07:28 97.5 F 80 16 107/54 L 95 05/03/20 04:00 97.4 F 83 20 86/71 L 98 Date Exam was Performed: 05/03/20 Time Exam was Performed: 11:21 - Problem List & Annotations (1) Abscess and cellulitis SNOMED Code(s): 706724682 Code(s): L03.90 - CELLULITIS, UNSPECIFIED; L02.91 - CUTANEOUS ABSCESS, UNSPECIFIED Status: Acute Current Visit: No (2) Hidradenitis suppurativa SNOMED Code(s): 39569853 Code(s): L73.2 - HIDRADENITIS SUPPURATIVA Status: Acute Current Visit: No (3) Insulin dependent diabetes mellitus SNOMED Code(s): 61685740 Code(s): E11.9 - TYPE 2 DIABETES MELLITUS WITHOUT COMPLICATIONS; 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 Status: Acute Current Visit: No (4) Fibromyalgia SNOMED Code(s): 452118932 Code(s): M79.7 - FIBROMYALGIA Status: Chronic Current Visit: No (5) Uncontrolled type 2 diabetes mellitus SNOMED Code(s): 598115814, 284386431 Code(s): E11.65 - TYPE 2 DIABETES MELLITUS WITH HYPERGLYCEMIA Status: Chronic Current Visit: No - Problem List Review Problem List Initiated/Reviewed/Updated: Yes - My Orders Last 24 Hours: My Active Orders 05/02/20 22:07 Consult to Physician [CONS] Routine 05/02/20 22:08 Notify Provider Consults [RC] ASDIRECTED 05/02/20 22:11 Glucose [Blood Glucose Check, Bedside] [RC] QIDACANDBED Dextrose 50% in Water 25 ml IVPUSH Q1H PRN 05/02/20 22:13 Patient Status [ADT] Routine Up With Assistance [RC] ASDIRECTED VTE/DVT Education [RC] Vital Signs [RC] 00,04,08,12,16,20 Acetaminophen [Tylenol] 650 mg PO Q4H PRN Docusate Sodium [Colace] 100 mg PO BID PRN HYDROmorphone [Dilaudid] 0.5 mg IVPUSH Q2H PRN Ondansetron [Zofran ODT] 4 mg PO Q6H PRN Ondansetron [Zofran] 4 mg IVPUSH Q4H PRN Temazepam [Restoril] 15 mg PO BEDTIME PRN oxyCODONE 5 mg PO Q4H PRN Resuscitation Status Routine 05/02/20 22:14 Antiembolic Hose [OM.PC] Per Unit Routine 05/02/20 22:15 Antiembolic Devices [RC] 08,20 Cyclobenzaprine [Flexeril] 10 mg PO Q8H PRN 05/02/20 22:30 Insulin Glarg,Human.Rec.Analog [LantUS] 75 unit SUBCUT BID Insulin Lispro [HumaLOG] 0 unit SUBCUT QIDACANDBED Sodium Chloride 0.9% [Normal Saline] 1,000 ml IV ASDIRECTED 05/03/20 02:30 CULTURE WOUND + SMEAR [RM] Routine 05/03/20 06:00 Heparin Sodium 5,000 units SUBCUT Q8HR 05/03/20 Breakfast NPO After Midnight [Nothing per Oral After Midnight Diet] [DIET] 05/03/20 08:00 Insulin Lispro [HumaLOG] 30 unit SUBCUT TIDMEALS 05/03/20 09:00 Gabapentin [Neurontin] 600 mg PO TID 05/03/20 16:00 Clindamycin Phosphate [Cleocin] 600 mg Sodium Chloride 0.9% [Normal Saline] 100 ml IV Q8HR 05/03/20 21:00 Sertraline [Zoloft] 200 mg PO BEDTIME traZODone 50 mg PO BEDTIME 05/04/20 05:15 BASIC METABOLIC PANEL,BMP [CHEM] AM CBC WITH AUTO DIFF [HEME] AM - Plan Plan:: 45-year-old with a poorly controlled diabetes, hydradenitis suppurativa, presented with right buttock cellulitis and abscess. Right buttock cellulitis with abscess blood culture: pending Consulted and discussed with surgery, incision and drainage is done today return to diabetic diet Obtain anaerob and areobic cultures from surgical specimen The patient received vancomycin and levofloxacin in the ER We'll continue with IV clindamycin Diabetes better controlled Hydrate well Continue long-acting insulin along with mealtime insulin Supplemental insulin and hypoglycemia protocol as needed Chronic pain, chronic continuous narcotic use Use oxycodone for moderate pain, hydrocodone for severe pain DVT prophylaxis with subcutaneous heparin
[2020-05-03] MEDS: oxyCODONE 5 MG Tab PO PRN ×2 (12:18→20:51)
--- NOTE | 2020-05-03 15:57 | OR ---
DATE: 05/03/2020 PREOPERATIVE DIAGNOSIS: Right upper thigh abscess secondary to hidradenitis suppurativa. POSTOPERATIVE DIAGNOSIS: Right upper thigh abscess secondary to hidradenitis suppurativa. PROCEDURE: Incision and drainage of right medial thigh abscess. ANESTHESIA: General. ESTIMATED BLOOD LOSS: Minimal. SPECIMEN: Cultures. INDICATION FOR PROCEDURE: This 45-year-old female has had years long history of multiple abscesses in the groin and thigh region. By physical examination, this is consistent with hidradenitis. This abscess is larger than I could drain under local anesthesia. PROCEDURE IN DETAIL: After adequate preparation, incision was made over a palpable area that measured about 6 cm in diameter. Initially, I thought this was a bigger area, but on inspection, this was about 6 cm. The abscess cavity was entered. Purulent material was extruded from this. Cultures were taken. The wound was opened up. All the loculations seemed to be freed up. Hemostasis was controlled with cautery and the wound was packed with a 4x4 gauze. The patient was taken to recovery room. [facility] /[id number]
[2020-05-03] MEDS: Clindamycin Phosphate 600 MG in Sodium Chloride 0.9% 100 ML IV SCH ×2 (16:15→22:47)
[2020-05-03] MEDS ORDERED: Insulin Glarg,Human.Rec.Analog 100 Unit/ML SUBCUT ONE (20:19)
[2020-05-03] MEDS ORDERED: traZODone 50 MG Tab PO SCH (21:00)
[2020-05-03] MEDS ORDERED: Sertraline 50 MG Tab PO SCH (21:00)
[2020-05-04] MEDS: oxyCODONE 5 MG Tab PO PRN ×3 (01:41→10:50)
[2020-05-04] MEDS: Sodium Chloride 0.9% 10 ML Syringe FLUSH PRN ×2 (06:08→06:51)
[2020-05-04] MEDS: Clindamycin Phosphate 600 MG in Sodium Chloride 0.9% 100 ML IV SCH (06:09)
[2020-05-04] MEDS: Heparin Sodium 5,000 Units/ML Vial SUBCUT SCH (06:16)
[2020-05-04 06:58] LABS: ANION GAP 11.8 mEq/L (7-13); CHLORIDE,CL 103 mmol/L (98-107); SODIUM,NA 138 mmol/L (136-145)
[2020-05-04 07:42] VITALS: BP 124/68; PULSE 95
[2020-05-04] MEDS: HYDROmorphone 1 MG/ML Syringe IVPUSH PRN (08:06)
[2020-05-04] MEDS: Gabapentin 300 MG Cap PO SCH (08:46)
[2020-05-04] MEDS: Insulin Lispro 100 Units/ML 3 ML Vial SUBCUT SCH ×2 (08:47→08:52)
[2020-05-04] MEDS ORDERED: Insulin Glarg,Human.Rec.Analog 100 Unit/ML SUBCUT SCH ×2 (09:01→10:30)
--- NOTE | 2020-05-04 10:06 | PCM.DCSUM1 ---
Discharge Summary - Hospital Course Free Text/Narrative:: 45-year-old with a poorly controlled diabetes, hydradenitis suppurativa, presented with right buttock cellulitis and abscess. Right buttock cellulitis with abscess blood culture: pending - negative for now Culture from surgical sample is pending was done on 03 May. Packing removed on the . Plan is plain 4 x 4 gauze dressing The patient received vancomycin and levofloxacin in the ER Treated with IV clindamycin and continue this as outpatient with oral medication Diabetes Was quite well controlled during the hospital stay even with less insulin use then reported from home Follow with primary care physician Chronic pain, chronic continuous narcotic use Use oxycodone for severe pain 7 pills Rx were given, otherwise continue hydrocodone as previously Diagnosis: Stroke: No - Discharge Data Discharge Date: 05/04/20 Discharge Disposition: Home, Self-Care 01 Condition: Stable - Referral to Home Health Primary Care Physician: Eros Ramírez MD - Discharge Diagnosis/Problem(s) (1) Abscess and cellulitis SNOMED Code(s): 685768123 ICD Code: L03.90 - CELLULITIS, UNSPECIFIED; L02.91 - CUTANEOUS ABSCESS, UNSPECIFIED Status: Acute Current Visit: No (2) Hidradenitis suppurativa SNOMED Code(s): 07286675 ICD Code: L73.2 - HIDRADENITIS SUPPURATIVA Status: Acute Current Visit: No (3) Insulin dependent diabetes mellitus SNOMED Code(s): 22692408 ICD Code: E11.9 - TYPE 2 DIABETES MELLITUS WITHOUT COMPLICATIONS; 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 Status: Acute Current Visit: No (4) Fibromyalgia SNOMED Code(s): 416805041 ICD Code: M79.7 - FIBROMYALGIA Status: Chronic Current Visit: No (5) Uncontrolled type 2 diabetes mellitus SNOMED Code(s): 380776888, 766754633 ICD Code: E11.65 - TYPE 2 DIABETES MELLITUS WITH HYPERGLYCEMIA Status: Chronic Current Visit: No - Patient Summary/Data Consults: Consultations 05/02/20 22:07 Consult to Physician [CONS] Routine - Patient Instructions Diet: Diabetic Diet Activity: As Tolerated - Discharge Plan *PRESCRIPTION DRUG MONITORING PROGRAM REVIEWED*: No *COPY OF PRESCRIPTION DRUG MONITORING REPORT IN PATIENT ELEANOR: No Prescriptions/Med Rec: Clindamycin HCl 300 mg PO TID #21 capsule oxyCODONE 5 mg PO Q4H PRN #7 tablet PRN Reason: Pain (Severe 7-10) Home Medications: Home Meds Sertraline HCl [Zoloft] 200 mg PO BEDTIME 01/11/16 [History] Cyclobenzaprine [Flexeril] 10 mg PO Q8H PRN 12/19/16 [History] Hydrocodone/Acetaminophen [Hydrocodone-Acetamin 5-325 mg] 1 tab PO TID PRN 12/19/16 [History] metFORMIN [Glucophage] 1,000 mg PO BIDMEALS 04/09/17 [History] Insulin Aspart [NovoLOG] 30 units SQ TIDMEALS 07/28/18 [History] traZODone HCl [Trazodone HCl] 50 mg PO BEDTIME 07/28/18 [History] Insulin Degludec [Tresiba Flextouch U-100] 75 units SQ BID 09/10/18 [History] Gabapentin [Neurontin] 600 mg PO TID 05/02/20 [History] Clindamycin HCl 300 mg PO TID #21 capsule 05/04/20 [Rx] oxyCODONE 5 mg PO Q4H PRN #7 tablet 05/04/20 [Rx] Oxygen Therapy Mode: Nasal Cannula Referrals: Fiorella Rodriguez MD [Physician] - - Discharge Summary/Plan Comment DC Time >30 min.: No - General Info Date of Service: 05/04/20 Functional Status: Reports: Pain Controlled (Fairly controlled), Tolerating Diet - Review of Systems General: Denies: Fever, Weakness Pulmonary: Denies: Shortness of Breath Cardiovascular: Denies: Chest Pain Gastrointestinal: Denies: Abdominal Pain Skin: Reports: Other (Packing was removed earlier by surgery today) - Patient Data Vitals - Most Recent: Last Vital Signs Temp 97.2 F 05/04/20 07:41 Pulse 95 05/04/20 07:41 Resp 17 05/04/20 07:41 BP 124/68 05/04/20 07:41 Pulse Ox 94 L 05/04/20 07:41 Weight - Most Recent: 246 lb 12.8 oz I&O - Last 24 hours: Intake & Output 05/03/20 05/04/20 05/04/20 22:59 06:59 14:59 Intake Total 2124 601 450 Balance 2124 601 450 Lab Results - Last 24 hrs: Laboratory Results - last 24 hr 05/03/20 05/03/20 05/03/20 Range/Units 11:02 16:32 19:39 WBC (5.0-10.0) 10^3/uL RBC (4.2-5.4) 10^6/uL Hgb (12.0-16.0) g/dL Hct (37.0-47.0) % MCV (80-100) fL MCH (27.0-34.0) pg MCHC (33.0-35.0) g/dL Plt Count (150-450) 10^3/uL Neut % (Auto) (42.2-75.2) % Lymph % (Auto) (20.5-50.1) % [place] % (Auto) (2-8) % Eos % (Auto) (1.0-3.0) % Baso % (Auto) (0.0-1.0) % Sodium (136-145) mmol/L Potassium (3.5-5.1) mmol/L Chloride (98-107) mmol/L Carbon Dioxide (21-32) mmol/L Anion Gap (7-13) mEq/L BUN (7-18) mg/dL Creatinine (0.55-1.02) mg/dL Est Cr Clr Drug Dosing mL/min Estimated GFR (MDRD) Glucose (74-99) mg/dL POC Glucose 177 H 167 H 80 (70-105) mg/dl Calcium (8.5-10.1) mg/dL 05/03/20 05/04/20 05/04/20 Range/Units 20:50 06:28 06:28 WBC 10.4 H (5.0-10.0) 10^3/uL RBC 4.33 (4.2-5.4) 10^6/uL Hgb 12.1 (12.0-16.0) g/dL Hct 37.0 (37.0-47.0) % MCV 85.5 (80-100) fL MCH 27.9 (27.0-34.0) pg MCHC 32.7 L (33.0-35.0) g/dL Plt Count 277 (150-450) 10^3/uL Neut % (Auto) 66.3 (42.2-75.2) % Lymph % (Auto) 24.4 (20.5-50.1) % [place] % (Auto) 5.7 (2-8) % Eos % (Auto) 3.4 H (1.0-3.0) % Baso % (Auto) 0.2 (0.0-1.0) % Sodium 138 (136-145) mmol/L Potassium 3.8 (3.5-5.1) mmol/L Chloride 103 (98-107) mmol/L Carbon Dioxide 27 (21-32) mmol/L Anion Gap 11.8 (7-13) mEq/L BUN 11 (7-18) mg/dL Creatinine 0.69 (0.55-1.02) mg/dL Est Cr Clr Drug Dosing 105.34 mL/min Estimated GFR (MDRD) > 60 Glucose 130 H (74-99) mg/dL POC Glucose 94 (70-105) mg/dl Calcium 8.4 L (8.5-10.1) mg/dL 05/04/20 Range/Units 07:26 WBC (5.0-10.0) 10^3/uL RBC (4.2-5.4) 10^6/uL Hgb (12.0-16.0) g/dL Hct (37.0-47.0) % MCV (80-100) fL MCH (27.0-34.0) pg MCHC (33.0-35.0) g/dL Plt Count (150-450) 10^3/uL Neut % (Auto) (42.2-75.2) % Lymph % (Auto) (20.5-50.1) % [place] % (Auto) (2-8) % Eos % (Auto) (1.0-3.0) % Baso % (Auto) (0.0-1.0) % Sodium (136-145) mmol/L Potassium (3.5-5.1) mmol/L Chloride (98-107) mmol/L Carbon Dioxide (21-32) mmol/L Anion Gap (7-13) mEq/L BUN (7-18) mg/dL Creatinine (0.55-1.02) mg/dL Est Cr Clr Drug Dosing mL/min Estimated GFR (MDRD) Glucose (74-99) mg/dL POC Glucose 122 H (70-105) mg/dl Calcium (8.5-10.1) mg/dL [place] Results - Last 24 hrs: Microbiology 05/02/20 21:07 Aerobic Blood Culture - Preliminary Blood - Venous - Lab Draw NO GROWTH AFTER 1 DAY Anaerobic Blood Culture - Preliminary NO GROWTH AFTER 1 DAY 05/02/20 21:00 Aerobic Blood Culture - Preliminary Blood - Venous NO GROWTH AFTER 1 DAY Anaerobic Blood Culture - Final Med Orders - Current: Current Medications Acetaminophen (Tylenol) 650 mg PO Q4H PRN PRN Reason: Pain (Mild 1-3)/fever Cyclobenzaprine HCl (Flexeril) 10 mg PO Q8H PRN PRN Reason: Spasms Dextrose/Water (Dextrose 50% In Water) 25 ml IVPUSH Q1H PRN PRN Reason: blood sugar <70 Docusate Sodium (Colace) 100 mg PO BID PRN PRN Reason: Constipation Gabapentin (Neurontin) 600 mg PO TID [facility] Last Admin: 05/04/20 08:46 Dose: 600 mg Documented by: Heparin Sodium (Porcine) (Heparin Sodium) 5,000 units SUBCUT Q8HR [facility] Last Admin: 05/04/20 06:16 Dose: 5,000 units Documented by: Hydromorphone HCl (Dilaudid) 0.5 mg IVPUSH Q2H PRN PRN Reason: Pain (severe 7-10) Last Admin: 05/04/20 08:06 Dose: 0.5 mg Documented by: Sodium Chloride (Normal Saline) 1,000 mls @ 150 mls/hr IV ASDIRECTED [facility] Last Infusion: 05/03/20 17:00 Dose: Infused Documented by: Clindamycin Phosphate 600 mg/ (Sodium Chloride) 104 mls @ 200 mls/hr IV Q8HR [facility] Last Infusion: 05/04/20 06:50 Dose: Infused Documented by: Insulin Glargine (Lantus) 50 unit SUBCUT BID [facility] Insulin Human Lispro (Humalog) 0 unit SUBCUT QIDACANDBED [facility]; Protocol Last Admin: 05/04/20 08:52 Dose: Not Given Documented by: Insulin Human Lispro (Humalog) 20 unit SUBCUT TIDMEALS [facility] Ondansetron HCl (Zofran Odt) 4 mg PO Q6H PRN PRN Reason: nausea, able to take PO Ondansetron HCl (Zofran) 4 mg IVPUSH Q4H PRN PRN Reason: Nausea/Vomiting Oxycodone HCl (Oxycodone) 5 mg PO Q4H PRN PRN Reason: Pain (moderate 4-6) Last Admin: 05/04/20 06:18 Dose: 5 mg Documented by: Sertraline HCl (Zoloft) 200 mg PO BEDTIME [facility] Last Admin: 05/03/20 20:14 Dose: 200 mg Documented by: Sodium Chloride (Saline Flush) 10 ml FLUSH ASDIRECTED PRN PRN Reason: Keep Vein Open Last Admin: 05/04/20 06:51 Dose: 10 ml Documented by: Temazepam (Restoril) 15 mg PO BEDTIME PRN PRN Reason: Sleep Trazodone HCl (Trazodone) 50 mg PO BEDTIME [facility] Last Admin: 05/03/20 20:17 Dose: 50 mg Documented by: Discontinued Medications Fentanyl (Sublimaze) 50 mcg IVPUSH ONETIME ONE Stop: 05/02/20 21:05 Last Admin: 05/02/20 21:17 Dose: 50 mcg Documented by: Vancomycin HCl 1 gm/ Sodium (Chloride) 250 mls @ 167 mls/hr IV ONETIME ONE Stop: 05/02/20 22:32 Last Admin: 05/02/20 22:27 Dose: 167 mls/hr Documented by: Levofloxacin/Dextrose 500 mg/ (Premix) 100 mls @ 100 mls/hr IV ONETIME ONE Stop: 05/02/20 22:03 Last Infusion: 05/02/20 22:20 Dose: Infused Documented by: Clindamycin Phosphate 600 mg/ (Sodium Chloride) 104 mls @ 200 mls/hr IV Q8H [facility] Last Infusion: 05/03/20 08:20 Dose: Infused Documented by: Insulin Glargine (Lantus) 75 unit SUBCUT BID [facility] Last Admin: 05/03/20 20:18 Dose: Not Given Documented by: Insulin Glargine (Lantus) 50 unit SUBCUT ONETIME ONE Stop: 05/03/20 20:20 Last Admin: 05/03/20 21:33 Dose: 50 units Documented by: Insulin Human Lispro (Humalog) 0 unit SUBCUT QIDACANDBED [facility]; Protocol Insulin Human Lispro (Humalog) 30 unit SUBCUT TIDMEALS [facility] Last Admin: 05/04/20 08:47 Dose: 30 units Documented by: Lidocaine HCl (Xylocaine-Mpf 1%) Confirm Administered Dose 30 ml .ROUTE .STK-MED ONE Stop: 05/03/20 08:00 Ondansetron HCl (Zofran) 4 mg IVPUSH ONETIME ONE Stop: 05/02/20 21:13 Last Admin: 05/02/20 21:16 Dose: 4 mg Documented by: - Exam General: Reports: Alert, Oriented Neck: Reports: Supple Lungs: Reports: Clear to Auscultation, Normal Respiratory Effort Cardiovascular: Reports: Regular Rate, Regular Rhythm GI/Abdominal Exam: Normal Bowel Sounds, Soft, Other (Obese) Extremities: No Pedal Edema Neurological: Reports: No New Focal Deficit Psy/Mental Status: Reports: Alert, Normal Affect, Normal Mood
[2020-05-04] MEDS: Insulin Glarg,Human.Rec.Analog 100 Unit/ML SUBCUT SCH (10:31)
[2020-05-04] MEDS ORDERED: Lactated Ringers 1,000 ML IV ONE (11:59)
[2020-05-04] MEDS ORDERED: Glycopyrrolate 0.2 MG/ML 2 ML SDV ONE (11:59)
[2020-05-04] MEDS ORDERED: Ondansetron 4 MG/2 ML SDV IV ONE (11:59)
[2020-05-04] MEDS ORDERED: fentaNYL 100 MCG/2 ML SDV IV ONE (11:59)
[2020-05-04] MEDS ORDERED: Midazolam 1 MG/ML 2 ML SDV IV ONE (11:59)
[2020-05-04] MEDS ORDERED: Propofol 200 MG/20 ML SDV IV ONE (11:59)
[2020-05-04] MEDS ORDERED: Insulin Lispro 100 Units/ML 3 ML Vial SUBCUT SCH (12:00)
== END 2020-05-04 12:00 | disposition home or self-care (01) | DRG 638 ==
LOC: DL.ED 19:45 → DL.MS 21:18 → UNDOADMIN 21:18 → DL.MS 22:13
PROVIDERS: ADMIT Internal Medicine; ATTEND Internal Medicine
PROC: 0Y900ZZ Drainage of Right Buttock, Open Approach (ICD-10-PCS; principal; 2020-05-03)
DX: L02.415 Cutaneous abscess of right lower limb (principal); E11.628 Type 2 diabetes mellitus with other skin complications; L03.317 Cellulitis of buttock; L02.31 Cutaneous abscess of buttock; F41.9 Anxiety disorder, unspecified; L73.2 Hidradenitis suppurativa; Z86.14 Personal history of Methicillin resistant Staphylococcus aureus infection; Z90.49 Acquired absence of other specified parts of digestive tract; Z90.710 Acquired absence of both cervix and uterus; E11.65 Type 2 diabetes mellitus with hyperglycemia; M79.7 Fibromyalgia; E11.21 Type 2 diabetes mellitus with diabetic nephropathy; E11.42 Type 2 diabetes mellitus with diabetic polyneuropathy; F41.0 Panic disorder [episodic paroxysmal anxiety]; F17.210 Nicotine dependence, cigarettes, uncomplicated; F32.9 Major depressive disorder, single episode, unspecified; E66.9 Obesity, unspecified; Z11.59 Encounter for screening for other viral diseases; Z91.030 Bee allergy status; Z88.0 Allergy status to penicillin; Z88.8 Allergy status to other drugs, medicaments and biological substances; Z79.4 Long term (current) use of insulin; Z79.899 Other long term (current) drug therapy; Z28.82 Immunization not carried out because of caregiver refusal; Z68.36 Body mass index [BMI] 36.0-36.9, adult
CPT/HCPCS: 36415; 80053; 83605; 85025; 87040 ×2; 96365; 96375; 99284; J1956; J2405; J3010; 00400; 80048; 82962; 87070; 87075; 87077; 87186; 87205; 96366; 96367; A9270-GY; J1170; J1644; J1815-GY; J2250; J2704; J3370; J3490; J7030; J7050; J7120; U0002

== ENCOUNTER 2020-07-05 10:55 | Observation (INO) | payer MEDICARE, MEDICAID ==
[2020-07-05] MEDS ORDERED: fentaNYL 100 MCG/2 ML SDV IV ONE (10:56)
[2020-07-05] MEDS ORDERED: Midazolam 1 MG/ML 2 ML SDV IV ONE (10:56)
[2020-07-05] MEDS ORDERED: Lidocaine 2% 20 ML MDV INJECT ONE (10:56)
[2020-07-05] MEDS ORDERED: Propofol 200 MG/20 ML SDV IV ONE (10:56)
[2020-07-05] MEDS ORDERED: Sodium Chloride 0.9% 10 ML Syringe FLUSH PRN (11:15)
[2020-07-05] MEDS ORDERED: Lactated Ringers 1,000 ML IV ONE (11:16)
[2020-07-05] MEDS ORDERED: Ondansetron 4 MG/2 ML SDV IV ONE (11:16)
[2020-07-05] MEDS ORDERED: HYDROmorphone 1 MG/ML Syringe IVPUSH ONE (11:17)
[2020-07-05] MEDS ORDERED: Vancomycin 1.75 GM in Sodium Chloride 0.9% 500 ML IV ONE (11:29)
--- NOTE | 2020-07-05 12:03 | HP ---
INTRODUCTION: This 45-year-old female presents to the emergency room with a large abscess on the right buttocks. She has had this for several days. It is becoming increasingly painful and difficult to manage. She also has chronic constipation over the last week that is not responsive to laxatives. I was consulted in the emergency room for treatment of the abscess. PAST MEDICAL HISTORY: The patient has allergies to bee venom, Benadryl, and penicillin. CURRENT MEDICATIONS: Trazodone, Glucophage, NovoLog, Percocet tablets, Neurontin, and Flexeril. PAST SURGICAL HISTORY: Includes multiple abscess drainages. FAMILY HISTORY AND SOCIAL HISTORY: She does smoke. She lives here at [facility]. REVIEW OF SYSTEMS: Positive for multiple MRSA abscesses. She also is positive for insulin- dependent diabetes. PHYSICAL EXAMINATION: HEENT: Normal. Chest: Lungs are clear bilaterally. Heart: Normal sinus rhythm. Abdomen: Mildly obese. Skin: The right buttock shows a 10 cm abscess in the middle portion of the buttocks. Extremities: Normal. Neurologic: Intact. ASSESSMENT: Right buttock abscess. PLAN: I discussed the risks, benefits, and expected outcomes of an incision and drainage of this abscess with packing. This will be done in the operating room under general anesthesia today. We will admit her in the hospital overnight for observation and wound care with a pack change tomorrow. [facility] /[id number]
--- NOTE | 2020-07-05 12:07 | EDM.PDOC ---
ED HPI GENERAL MEDICAL PROBLEM - General Chief Complaint: Abdominal Pain Stated Complaint: SENT FROM CLINIC Time Seen by Provider: 07/05/20 11:10 Source of Information: Reports: Patient History Limitations: Reports: No Limitations - History of Present Illness INITIAL COMMENTS - FREE TEXT/NARRATIVE: Patient comes emergency department today from the clinic with concerns of sally diaz and an abscess on her buttocks. This patient has not had a bowel movement in the past 2 weeks. She has tried enemas at home magnesium citrate as well as Ex-Lax at home without having a bowel movement. She has no history of constipation. She has had surgeries in her abdomen to include an appendectomy cholecystectomy and hysterectomy. She is never had a bowel obstruction. She had some nausea and vomited once last night. She does feel somewhat bloated no distention. Planes of pain on the right side of her abdomen in the right upper quadrant. Pain is started out intermittently but has become quite constant. No hematuria dysuria or urinary frequency. No chest pain no shortness of breath or difficulty breathing. No cough or congestion. No loss of taste or smell. No diarrhea. No COVID exposure no covert symptoms. She does have a history of recurrent abscesses and most recently was hospitalized about a month ago here for an abscess in her leg where the surgeon did some debridement of it. Last 2 days she has concerns that she developed an abscess in the right gluteal region. It is gotten quite large and painful and it is difficult for her to sit. No fever no chills. Right Buttock Pain Score (Numeric/FACES): 6 - Related Data Allergies Allergy/AdvReac Type Severity Reaction Status Date / Time bee venom protein (honey bee) Allergy Airway Verified 07/05/20 11:10 Tightness diphenhydramine HCl Allergy Anxiety Verified 07/05/20 11:10 [From Benadryl] penicillin Allergy Airway Verified 07/05/20 11:10 Tightness Home Meds: Home Meds Sertraline HCl [Zoloft] 200 mg PO BEDTIME 01/11/16 [History] Cyclobenzaprine [Flexeril] 10 mg PO Q8H PRN 12/19/16 [History] metFORMIN [Glucophage] 1,000 mg PO BIDMEALS 04/09/17 [History] Insulin Aspart [NovoLOG] 30 units SQ TIDMEALS 07/28/18 [History] traZODone HCl [Trazodone HCl] 50 mg PO BEDTIME 07/28/18 [History] Insulin Degludec [Tresiba Flextouch U-100] 84 units SQ BID 09/10/18 [History] Gabapentin [Neurontin] 600 mg PO TID 05/02/20 [History] oxyCODONE 5 mg PO Q4H PRN #7 tablet 05/04/20 [Rx] Hydrocodone/Acetaminophen [Hydrocodone-Acetamin 10-325 mg] 1 each PO TID 07/05/20 [History] Past Medical History - Past Health History Medical/Surgical History: Denies Medical/Surgical History HEENT History: Reports: Other (See Below) Other HEENT History: astygmatism Cardiovascular History: Reports: None Respiratory History: Reports: Bronchitis, Recurrent Gastrointestinal History: Reports: Cholelithiasis Other Gastrointestinal History: liver abscess x5 Genitourinary History: Reports: Diabetic Nephropathy PLANNING ADVISOR History: Reports: Endometriosis, Other PLANNING ADVISOR History: 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 Patient states she had a hysterectomy Musculoskeletal History: Reports: Fibromyalgia Neurological History: Reports: Migraines, Neuropathy, Diabetic, Neuropathy, Peripheral, Vertigo Psychiatric History: Reports: Anxiety, Depression, Panic Attack Endocrine/Metabolic History: Reports: Diabetes, Type II, IDDM, Obesity/BMI 30+, Other (See Below) Other Endocrine/Metabolic History: Is on UV insulin bid. does not know the exact name. 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 hydroitis supposrtive tibia - Infectious Disease History Infectious Disease History: Reports: MRSA - Past Surgical History Head Surgeries/Procedures: Reports: None Respiratory Surgical History: Reports: None GI Surgical History: Reports: Cholecystectomy Female Surgical History: Reports: Hysterectomy, Other (See Below) Other Female Surgeries/Procedures: Tumor to rt. breast. Social & Family History - Family History Family Medical History: Noncontributory Cardiac: Reports: Hypertension Other Cardiac Family History: Mother Respiratory: Reports: COPD Other Respiratory Family Hisory: Mother OBGYN: Reports: Endometriosis Other OBGYN Family History: Mother Endocrine/Metabolic: Reports: Diabetes, type II Other Endocrine/Metabolic Family History: mother - Tobacco Use Smoking Status *Q: Current Every Day Smoker Years of Tobacco use: 30 Packs/Tins Daily: 1 - Caffeine Use Caffeine Use: Reports: Coffee - Recreational Drug Use Recreational Drug Use: No - Sexual History Sexual History: Reports: Sexually Active - Living Situation & Occupation Living situation: Reports: , with Family Occupation: Unemployed ED ROS GENERAL - Review of Systems Review Of Systems: Comprehensive ROS is negative, except as noted in HPI. ED EXAM, GI/ABD - Physical Exam Exam: See Below Exam Limited By: No Limitations General Appearance: Alert, WD/WN, No Apparent Distress Ears: Normal External Exam Nose: Normal Inspection Throat/Mouth: Normal Inspection Head: Atraumatic Neck: Normal Inspection Respiratory/Chest: No Respiratory Distress, Lungs Clear, Normal Breath Sounds, No Accessory Muscle Use, Chest Non-Tender Cardiovascular: Normal Peripheral Pulses, Regular Rate, Rhythm GI/Abdominal Exam: Soft, No Abnormal Bruit, Tender (Mild tenderness in the right mid and right upper abdomen.), Abnormal Bowel Sounds (Almost complete absent bowel sounds.). No: Distended, Guarding, Rigid, Hernia (Female) Exam: Deferred Rectal (Female) Exam: Deferred Back Exam: Full Range of Motion. No: Normal Inspection (Examining her back to include her buttocks she has a rather large right in the center region of her right buttocks about the size of a baseball area of induration swelling and fluctuance in the central concerning for an abscess. This is nowhere the rectum. There is no drainage or opening or breaks in the skin.) Extremities: Normal Inspection, Normal Range of Motion, Non-Tender, No Pedal Edema, Normal Capillary Refill Neurological: Alert, Oriented, Normal Cognition, No Motor/Sensory Deficits Psychiatric: Normal Affect Skin Exam: Warm, Dry, Intact, Other (See the back exam for the area of abscess on her right buttocks) Course - Vital Signs Last Recorded V/S: Last Vital Signs Temp 98 F 07/05/20 15:55 Pulse 71 07/05/20 15:55 Resp 16 07/05/20 15:55 BP 98/52 L 07/05/20 15:55 Pulse Ox 98 07/05/20 15:55 - Orders/Labs/Meds Orders: Active Orders 24 hr Category Date Time Status Admission Status [Patient Status] [ADT] Routine ADT 07/05/20 11:33 Active Patient Status [ADT] Routine ADT 07/05/20 14:09 Active Ambulate [RC] ASDIRECTED Care 07/05/20 14:09 Active Antiembolic Devices [RC] PER UNIT ROUTINE Care 07/05/20 14:19 Active Blood Glucose Check, Bedside [RC] QIDACANDBED Care 07/05/20 15:18 Active Enema [RC] BID Care 07/05/20 20:00 Active Oxygen Therapy [RC] PRN Care 07/05/20 14:09 Active Full Liquid Diet [DIET] Diet 07/05/20 Dinner Active CULTURE ANAEROBIC [RM] Routine Lab 07/05/20 12:55 Received CULTURE BLOOD [BC] Stat Lab 07/05/20 11:34 Received CULTURE BLOOD [BC] Stat Lab 07/05/20 11:39 Received CULTURE WOUND [RM] Routine Lab 07/05/20 12:55 Received UA RFX PARISH AND CULT IF INDIC [URIN] Stat Lab 07/05/20 11:16 Ordered Acetaminophen/HYDROcodone [Hines 325-10 MG] Med 07/05/20 15:47 Active 1 tab PO Q4HR PRN Insulin Lispro [HumaLOG] Med 07/05/20 18:00 Active 0 unit SUBCUT WITHMEALSANDBED Morphine Med 07/05/20 15:48 Active 2 mg IVPUSH Q1H PRN Sodium Chloride 0.9% [Saline Flush] Med 07/05/20 15:48 Active 10 ml FLUSH ASDIRECTED PRN Vancomycin 1 gm Med 07/05/20 21:00 Active Sodium Chloride 0.9% [Normal Saline] 250 ml IV Q12HR polyethylene glycoL 3350 [MiraLAX] Med 07/05/20 15:48 Active 17 gm PO DAILY PRN Blood Culture x2 Reflex Set [OM.PC] Stat Oth 07/05/20 11:16 Ordered Peripheral IV Insertion Adult [OM.PC] Stat Oth 07/05/20 11:16 Ordered Sequential Compression Device [OM.PC] Routine Oth 07/05/20 14:19 Ordered Resuscitation Status Routine Resus Stat 07/05/20 14:09 Ordered Medication Orders Hydrocodone Bitart/Acetaminophen (Hines 325-10 Mg) 1 tab PO Q4HR PRN PRN Reason: Pain (moderate 4-6) Last Admin: 07/05/20 15:54 Dose: 1 tab Documented by: CAREMOR Vancomycin HCl 1 gm/ Sodium (Chloride) 250 mls @ 167 mls/hr IV Q12HR [facility] Insulin Human Lispro (Humalog) 0 unit SUBCUT WITHMEALSANDBED [facility]; Protocol Morphine Sulfate (Morphine) 2 mg IVPUSH Q1H PRN PRN Reason: Pain (severe 7-10) Last Admin: 07/05/20 15:55 Dose: 2 mg Documented by: [email or web address] Polyethylene Glycol (Miralax) 17 gm PO DAILY PRN PRN Reason: Constipation Sodium Chloride (Saline Flush) 10 ml FLUSH ASDIRECTED PRN PRN Reason: Keep Vein Open Labs: Laboratory Tests 07/05/20 07/05/20 07/05/20 Range/Units 11:34 11:34 11:34 WBC 10.4 H (5.0-10.0) 10^3/uL RBC 5.33 (4.2-5.4) 10^6/uL Hgb 14.6 D (12.0-16.0) g/dL Hct 44.0 (37.0-47.0) % MCV 82.6 (80-100) fL MCH 27.4 (27.0-34.0) pg MCHC 33.2 (33.0-35.0) g/dL Plt Count 384 D (150-450) 10^3/uL Neut % (Auto) 70.0 (42.2-75.2) % Lymph % (Auto) 19.6 L (20.5-50.1) % Page % (Auto) 6.6 (2-8) % Eos % (Auto) 3.6 H (1.0-3.0) % Baso % (Auto) 0.2 (0.0-1.0) % Sodium 135 L (136-145) mmol/L Potassium 3.7 (3.5-5.1) mmol/L Chloride 97 L (98-107) mmol/L Carbon Dioxide 29 (21-32) mmol/L Anion Gap 12.7 (7-13) mEq/L BUN 8 (7-18) mg/dL Creatinine 0.95 (0.55-1.02) mg/dL Est Cr Clr Drug Dosing 76.51 mL/min Estimated GFR (MDRD) > 60 BUN/Creatinine Ratio 8.4 (No establ ref range) Glucose 284 H (74-99) mg/dL Lactic Acid 1.2 (0.4-2.0) mmol/L Calcium 9.2 (8.5-10.1) mg/dL Total Bilirubin 0.3 (0.2-1.0) mg/dL AST 12 L (15-37) U/L ALT 23 (14-59) U/L Alkaline Phosphatase 177 H (46-116) U/L C-Reactive Protein 17.8 H (0.0-0.9) mg/dL Total Protein 9.2 H (6.4-8.2) g/dL Albumin 2.9 L (3.4-5.0) g/dL Globulin 6.3 Albumin/Globulin Ratio 0.46 SARS Virus RNA (PCR) (NEGATIVE) 07/05/20 Range/Units 11:38 WBC (5.0-10.0) 10^3/uL RBC (4.2-5.4) 10^6/uL Hgb (12.0-16.0) g/dL Hct (37.0-47.0) % MCV (80-100) fL MCH (27.0-34.0) pg MCHC (33.0-35.0) g/dL Plt Count (150-450) 10^3/uL Neut % (Auto) (42.2-75.2) % Lymph % (Auto) (20.5-50.1) % Page % (Auto) (2-8) % Eos % (Auto) (1.0-3.0) % Baso % (Auto) (0.0-1.0) % Sodium (136-145) mmol/L Potassium (3.5-5.1) mmol/L Chloride (98-107) mmol/L Carbon Dioxide (21-32) mmol/L Anion Gap (7-13) mEq/L BUN (7-18) mg/dL Creatinine (0.55-1.02) mg/dL Est Cr Clr Drug Dosing mL/min Estimated GFR (MDRD) BUN/Creatinine Ratio (No establ ref range) Glucose (74-99) mg/dL Lactic Acid (0.4-2.0) mmol/L Calcium (8.5-10.1) mg/dL Total Bilirubin (0.2-1.0) mg/dL AST (15-37) U/L ALT (14-59) U/L Alkaline Phosphatase (46-116) U/L C-Reactive Protein (0.0-0.9) mg/dL Total Protein (6.4-8.2) g/dL Albumin (3.4-5.0) g/dL Globulin Albumin/Globulin Ratio SARS Virus RNA (PCR) Negative (NEGATIVE) Meds: Medications Generic Name Dose Route Start Last Admin Trade Name Palomo PRN Reason Stop Dose Admin Hydrocodone Bitart/Acetaminophen 1 tab 07/05/20 15:47 07/05/20 15:54 Hines 325-10 Mg PO 1 tab Q4HR PRN Administration Pain (moderate 4-6) Vancomycin HCl 1 gm/ Sodium 250 mls @ 167 mls/hr 07/05/20 21:00 Chloride IV Q12HR [facility] Insulin Human Lispro 0 unit 07/05/20 18:00 Humalog SUBCUT WITHMEALSANDBED [facility] Protocol Morphine Sulfate 2 mg 07/05/20 15:48 07/05/20 15:55 Morphine IVPUSH 2 mg Q1H PRN Administration Pain (severe 7-10) Polyethylene Glycol 17 gm 07/05/20 15:48 Miralax PO DAILY PRN Constipation Sodium Chloride 10 ml 07/05/20 15:48 Saline Flush FLUSH ASDIRECTED PRN Keep Vein Open Discontinued Medications Generic Name Dose Route Start Last Admin Trade Name Palomo PRN Reason Stop Dose Admin Hydrocodone Bitart/Acetaminophen 1 tab 07/05/20 14:00 Hines 325-10 Mg PO Q4HR PRN Pain (moderate 4-6) Hydromorphone HCl 1 mg 07/05/20 11:17 07/05/20 11:34 Dilaudid IVPUSH 07/05/20 11:18 1 mg ONETIME ONE Administration Lactated Ringer's 1,000 mls @ 1,000 mls/hr 07/05/20 11:16 07/05/20 11:35 Ringers, Lactated IV 07/05/20 12:15 1,000 mls/hr .BOLUS ONE Administration Vancomycin HCl 1.75 gm/ Sodium 500 mls @ 334 mls/hr 07/05/20 11:29 07/05/20 12:10 Chloride IV 07/05/20 12:58 334 mls/hr ONETIME ONE Administration Insulin Human Lispro 0 unit 07/05/20 18:00 Humalog SUBCUT WITHMEALSANDBED [facility] Protocol Iopamidol 100 ml 07/05/20 12:28 07/05/20 12:29 Isovue-300 (61%) IVPUSH 07/05/20 12:29 100 ml ONETIME ONE Administration Morphine Sulfate 2 mg 07/05/20 14:00 Morphine IVPUSH Q1H PRN Pain (severe 7-10) Ondansetron HCl 4 mg 07/05/20 11:16 07/05/20 11:34 Zofran IV 07/05/20 11:17 4 mg ONETIME ONE Administration Polyethylene Glycol 17 gm 07/05/20 14:09 Miralax PO DAILY PRN Constipation Sodium Chloride 10 ml 07/05/20 11:15 07/05/20 11:38 Saline Flush FLUSH 10 ml ASDIRECTED PRN Administration Keep Vein Open - Radiology Interpretation Free Text/Narrative:: CT abdomen pelvis per radiology shows no sign of malignancy, bowel obstruction or acute peritonitis - Re-Assessments/Exams Free Text/Narrative Re-Assessment/Exam: 07/05/20 12:04 Initially labs were drawn to include blood cultures. Dilaudid 1 mg IV push Vancomycin 1.75 g IV piggyback ET abdomen pelvis pending due to the abdominal pain and the constipation. I DID have Dr. Villa come and see the patient in the ED as the abscess in the buttock is clearly quite large. Dr. Villa did come to the ED and will take to surgery for this large abscess. Although we will complete the CT of the abd prior to surgery to ensure no other pathology. The patient is comfortable with this plan and his questions answered. Departure - Departure Time of Disposition: 12:00 Disposition: Refer to Observation Clinical Impression: Abscess of buttock, right Constipation Qualifiers: Constipation type: unspecified constipation type Qualified Code(s): K59.00 - Constipation, unspecified - Discharge Information Referrals: PCP,Unobtain [Primary Care Provider] - Forms: ED Department Discharge Sepsis Event Note (ED) - Evaluation Sepsis Screening Result: No Definite Risk - Focused Exam Vital Signs: Vital Signs Temp Pulse Pulse Resp BP BP Pulse Ox 07/05/20 15:55 98 F 71 16 98/52 L 98 07/05/20 15:00 98.4 F 78 16 88/48 L 98 07/05/20 14:45 98.2 F 75 16 112/58 L 96 07/05/20 14:30 98 F 74 16 106/55 L 97 07/05/20 14:15 97.8 F 77 16 103/69 99 07/05/20 14:00 97.9 F 80 16 105/48 L 97 07/05/20 13:51 84 16 126/73 100 07/05/20 13:46 85 16 124/75 98 07/05/20 13:41 86 11 L 118/77 92 L 07/05/20 13:36 84 16 128/79 100 07/05/20 13:31 92 18 125/81 100 07/05/20 13:26 92 19 121/78 100 07/05/20 13:21 94 21 H 116/78 100 07/05/20 13:16 95 22 H 118/72 100 07/05/20 13:11 95 23 H 116/75 100 07/05/20 13:09 97.9 F 96 18 116/76 99 07/05/20 11:00 97.0 F 120 H 18 121/83 100 Pulse Ox 07/05/20 15:55 07/05/20 15:00 07/05/20 14:45 07/05/20 14:30 07/05/20 14:15 07/05/20 14:00 07/05/20 13:51 07/05/20 13:46 07/05/20 13:41 07/05/20 13:36 07/05/20 13:31 07/05/20 13:26 07/05/20 13:21 07/05/20 13:16 07/05/20 13:11 07/05/20 13:09 100 07/05/20 11:00 - My Orders Last 24 Hours: My Active Orders 07/05/20 11:16 UA RFX PARISH AND CULT IF INDIC [URIN] Stat Blood Culture x2 Reflex Set [OM.PC] Stat Peripheral IV Insertion Adult [OM.PC] Stat 07/05/20 11:33 Admission Status [Patient Status] [ADT] Routine 07/05/20 11:34 CULTURE BLOOD [BC] Stat 07/05/20 11:39 CULTURE BLOOD [BC] Stat 07/05/20 15:48 Sodium Chloride 0.9% [Saline Flush] 10 ml FLUSH ASDIRECTED PRN - Assessment/Plan Last 24 Hours: My Active Orders 07/05/20 11:16 UA RFX PARISH AND CULT IF INDIC [URIN] Stat Blood Culture x2 Reflex Set [OM.PC] Stat Peripheral IV Insertion Adult [OM.PC] Stat 07/05/20 11:33 Admission Status [Patient Status] [ADT] Routine 07/05/20 11:34 CULTURE BLOOD [BC] Stat 07/05/20 11:39 CULTURE BLOOD [BC] Stat 07/05/20 15:48 Sodium Chloride 0.9% [Saline Flush] 10 ml FLUSH ASDIRECTED PRN
[2020-07-05 12:10] LABS: ANION GAP 12.7 mEq/L (7-13); CHLORIDE,CL 97 mmol/L (98-107); SODIUM,NA 135 mmol/L (136-145)
[2020-07-05] MEDS ORDERED: Iopamidol 612 MG/ML 100 ML Bottle IVPUSH ONE (12:28)
--- NOTE | 2020-07-05 13:00 | CT ---
EXAMINATION: Abdomen Pelvis w Cont SEX: Female AGE: 45 years CLINICAL HISTORY: 45-year-old 245 pound diabetic female smoker with ABDOMINAL PAIN and "distention" (no bowel movement for the past 2 weeks). "Distal small bowel enteritis (thickened nonobstructive small bowel loops)" reported CT exam 18 November 2018. Cholecystectomy. Hysterectomy. Scan technique: Volume acquisition of data from the abdomen and pelvis obtained without oral contrast but during the intravenous administration 100 cc nonionic Isovue contrast 3 cc/s via injector while patient was lying supine on the Siemens multislice scanner [place], [place]. All data archived in the PACS system for storage, reformatting and study. Interpretation: 1. Normal appendix RLQ. 2. Surgically absent gallbladder. Liver, stomach, spleen, pancreas and adrenal glands anatomically correct. 3. Normal reniform size, axis and configuration. No renal cortical mass lesion, nephrolithiasis or signs of obstructive uropathy. Symmetrically distended normal appearing unenhanced midline urinary bladder. 4. Lung bases clear. Normal cardiac silhouette. No pericardial or pleural effusion. 5. No abdominal or pelvic mass lesion, inflammatory "dirty" peritoneal fat, signs of mechanical bowel obstruction or obstipation, mechanical bowel obstruction, ascites or free intraperitoneal air. Hysterectomy. 6. Normal caliber aortoiliac vessels. No aneurysm or dissection. 7. Scoliosis and exaggerated lumbar lordosis. Hypertrophic spondylosis. CONCLUSION: No sign of malignancy, bowel obstruction or acute peritonitis.
--- NOTE | 2020-07-05 13:47 | OR ---
DATE: 07/05/2020 PREOPERATIVE DIAGNOSIS: Large abscess, right buttocks. POSTOPERATIVE DIAGNOSIS: Large abscess, right buttocks. PROCEDURE: Incision and drainage of 10 cm abscess, right buttocks. ANESTHESIA: General. ESTIMATED BLOOD LOSS: None. SPECIMEN: Culture and sensitivity. 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 She has had multiple incision and drainages. She presents to the emergency room with a 10 cm abscess in the mid right buttocks. PROCEDURE IN DETAIL: After adequate preparation, a stab incision was made vertically and carried down into the abscess cavity. Approximately, 50 mL of purulent pus was extracted from the cavity. Both aerobic and anaerobic cultures were taken. The wound was irrigated with saline multiple times and the wound was then packed with a 4 x 4 gauze. The wound was left open to heal by secondary intention and the patient was taken to recovery room. [facility] /[id number]
[2020-07-05] MEDS ORDERED: Acetaminophen/HYDROcodone 325-10 MG Tab PO PRN (14:00)
[2020-07-05] MEDS ORDERED: Morphine 2 MG/ML SYRINGE IVPUSH PRN (14:00)
[2020-07-05] MEDS ORDERED: Polyethylene Glycol 3350 Powder 17 GM Packet PO PRN ×2 (14:09→15:48)
[2020-07-05] MEDS: Acetaminophen/HYDROcodone 325-10 MG Tab PO PRN ×2 (15:54→20:02)
[2020-07-05] MEDS: Morphine 2 MG/ML SYRINGE IVPUSH PRN ×3 (15:55→22:29)
[2020-07-05] MEDS: Insulin Lispro 100 Units/ML 3 ML Vial SUBCUT SCH ×2 (17:13→21:32)
[2020-07-05] MEDS ORDERED: Insulin Lispro 100 Units/ML 3 ML Vial SUBCUT SCH (18:00)
[2020-07-05] MEDS: Sodium Chloride 0.9% 10 ML Syringe FLUSH PRN ×4 (19:51→22:30)
[2020-07-06] MEDS: Acetaminophen/HYDROcodone 325-10 MG Tab PO PRN ×5 (00:24→19:42)
[2020-07-06] MEDS: Sodium Chloride 0.9% 10 ML Syringe FLUSH PRN ×5 (00:43→12:00)
[2020-07-06] MEDS: Morphine 2 MG/ML SYRINGE IVPUSH PRN ×4 (00:43→12:00)
[2020-07-06] MEDS: Insulin Lispro 100 Units/ML 3 ML Vial SUBCUT SCH ×4 (08:30→21:29)
[2020-07-06] MEDS ORDERED: Polyethylene Glycol/Electrolytes 4,000 ML Bottle PO ONE (09:40)
[2020-07-07] MEDS: Acetaminophen/HYDROcodone 325-10 MG Tab PO PRN ×2 (02:20→07:28)
--- NOTE | 2020-07-07 07:27 | PCM.SN.2 ---
- Free Text/Narrative Note: Much better today. Would clean with minimal drainage. PO diet tolerated. BM satisfactory. Culture grew staph. Will discharge today. No restriction on activity or diet. Has her own pain medication at home. No need for continued antibiotic. Will FU in my clinic if needed.
[2020-07-07] MEDS: Insulin Lispro 100 Units/ML 3 ML Vial SUBCUT SCH (09:20)
[2020-07-07] MEDS: Sodium Chloride 0.9% 10 ML Syringe FLUSH PRN ×2 (09:22→11:00)
[2020-07-07 11:57] VITALS: BP 147/67; PULSE 83
== END 2020-07-07 11:30 | disposition home or self-care (01) ==
LOC: DL.SDS 10:55 → DL.MS 10:55 → DL.SDS 12:40 → DL.MS 14:09 → DL.SDS 07-06 14:38
PROVIDERS: ADMIT Hospitalist; ATTEND Internal Medicine
DX: L02.31 Cutaneous abscess of buttock (principal); B95.7 Other staphylococcus as the cause of diseases classified elsewhere; Z01.812 Encounter for preprocedural laboratory examination; Z20.828 Contact with and (suspected) exposure to other viral communicable diseases; E11.21 Type 2 diabetes mellitus with diabetic nephropathy; E66.9 Obesity, unspecified; F17.210 Nicotine dependence, cigarettes, uncomplicated; Z91.030 Bee allergy status; Z88.8 Allergy status to other drugs, medicaments and biological substances; Z88.0 Allergy status to penicillin; Z98.890 Other specified postprocedural states; Z79.899 Other long term (current) drug therapy
CPT/HCPCS: 00902; 36415; 74177; 80053; 82962; 83605; 85025; 86140; 87040; 87070; 87075; 87077; 87186; 96361; 96365; 96375; 99285-25; A9270-GY; G0378; J1170; J1815-GY; J2001; J2250; J2270; J2405; J2704; J3010; J3370; J7040; J7050; J7120; Q9967; U0002

== ENCOUNTER 2020-08-18 00:33 | Emergency (ER) | payer MEDICARE, MEDICAID ==
[2020-08-18] MEDS ORDERED: Ondansetron 4 MG Tab.DIS PO ONE (00:34)
[2020-08-18 00:44] VITALS: BP 136/65; PULSE 108
--- NOTE | 2020-08-18 01:08 | EDM.PDOC ---
ED HPI GENERAL MEDICAL PROBLEM - General Chief Complaint: Gastrointestinal Problem Stated Complaint: AMBULANCE Time Seen by Provider: 08/18/20 01:08 Source of Information: Reports: Patient History Limitations: Reports: No Limitations - History of Present Illness INITIAL COMMENTS - FREE TEXT/NARRATIVE: ED with c/o nausea and vomiting since . Emesis x 6 today one loose s tool. States just cant take it any more. No fever No cough or body aches. No known exposure to COVID. Headache Pain Score (Numeric/FACES): 8 Abdomen Pain Score (Numeric/FACES): 8 - Related Data Allergies Allergy/AdvReac Type Severity Reaction Status Date / Time bee venom protein (honey bee) Allergy Airway Verified 08/18/20 00:44 Tightness diphenhydramine HCl Allergy Anxiety Verified 08/18/20 00:44 [From Benadryl] penicillin Allergy Airway Verified 08/18/20 00:44 Tightness Home Meds: Home Meds Sertraline HCl [Zoloft] 200 mg PO BEDTIME 01/11/16 [History] Cyclobenzaprine [Flexeril] 10 mg PO Q8H PRN 12/19/16 [History] metFORMIN [Glucophage] 1,000 mg PO BIDMEALS 04/09/17 [History] Insulin Aspart [NovoLOG] 30 units SQ TIDMEALS 07/28/18 [History] traZODone HCl [Trazodone HCl] 50 mg PO BEDTIME 07/28/18 [History] Insulin Degludec [Tresiba Flextouch U-100] 84 units SQ BID 09/10/18 [History] Gabapentin [Neurontin] 600 mg PO TID 05/02/20 [History] oxyCODONE 5 mg PO Q4H PRN #7 tablet 05/04/20 [Rx] Hydrocodone/Acetaminophen [Hydrocodone-Acetamin 10-325 mg] 1 each PO TID 07/05/20 [History] Past Medical History - Past Health History Medical/Surgical History: Denies Medical/Surgical History HEENT History: Reports: Other (See Below) Other HEENT History: astygmatism Cardiovascular History: Reports: None Respiratory History: Reports: Bronchitis, Recurrent Gastrointestinal History: Reports: Cholelithiasis Other Gastrointestinal History: liver abscess x5 Genitourinary History: Reports: Diabetic Nephropathy PARKER History: Reports: Endometriosis, Other PARKER History: 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 Patient states she had a hysterectomy Musculoskeletal History: Reports: Fibromyalgia Neurological History: Reports: Migraines, Neuropathy, Diabetic, Neuropathy, Peripheral, Vertigo Psychiatric History: Reports: Anxiety, Depression, Panic Attack Endocrine/Metabolic History: Reports: Diabetes, Type II, IDDM, Obesity/BMI 30+, Other (See Below) Other Endocrine/Metabolic History: Is on UV insulin bid. does not know the exact name. 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 hydroitis supposrtive tibia - Infectious Disease History Infectious Disease History: Reports: MRSA - Past Surgical History Head Surgeries/Procedures: Reports: None HEENT Surgical History: Reports: None Respiratory Surgical History: Reports: None GI Surgical History: Reports: Cholecystectomy Female Surgical History: Reports: Hysterectomy, Other (See Below) Other Female Surgeries/Procedures: Tumor to rt. breast. Endocrine Surgical History: Reports: None Musculoskeletal Surgical History: Reports: None Social & Family History - Family History Family Medical History: Noncontributory Cardiac: Reports: Hypertension Other Cardiac Family History: Mother Respiratory: Reports: COPD Other Respiratory Family Hisory: Mother OBGYN: Reports: Endometriosis Other OBGYN Family History: Mother Endocrine/Metabolic: Reports: Diabetes, type II Other Endocrine/Metabolic Family History: mother - Tobacco Use Tobacco Use Status *Q: Current Status Unknown Second Hand Smoke Exposure: Yes - Caffeine Use Caffeine Use: Reports: Other Caffeine Use Comment: Her statesment " I don't know" - Recreational Drug Use Recreational Drug Use: No - Sexual History Sexual History: Reports: Sexually Active - Living Situation & Occupation Living situation: Reports: , with Family Occupation: Unemployed ED ROS GENERAL - Review of Systems Review Of Systems: Comprehensive ROS is negative, except as noted in HPI. ED EXAM, GI/ABD - Physical Exam Exam: See Below Exam Limited By: No Limitations General Appearance: No Apparent Distress Ears: Normal Canal Nose: Normal Inspection Throat/Mouth: Other (dry) Head: Atraumatic, Normocephalic Neck: Normal Inspection, Full Range of Motion Respiratory/Chest: No Respiratory Distress, Lungs Clear, Normal Breath Sounds Cardiovascular: Normal Peripheral Pulses, Regular Rate, Rhythm GI/Abdominal Exam: Normal Bowel Sounds, Soft. No: Distended, Guarding, Rigid Back Exam: Full Range of Motion Extremities: Normal Inspection, Normal Range of Motion Neurological: Alert, Oriented, Normal Cognition Psychiatric: Anxious Skin Exam: Warm, Dry, Intact, Normal Color Course - Vital Signs Last Recorded V/S: Last Vital Signs Temp 96.5 F L 08/18/20 00:39 Pulse 108 H 08/18/20 00:39 Resp 19 08/18/20 00:39 BP 136/65 08/18/20 00:39 Pulse Ox 99 08/18/20 00:39 - Orders/Labs/Meds Orders: Active Orders 24 hr Category Date Time Status Isolation [COMM] Routine Oth 08/18/20 01:25 Active Labs: Laboratory Tests 08/18/20 08/18/20 08/18/20 Range/Units 01:28 01:28 01:28 WBC 9.6 (5.0-10.0) 10^3/uL RBC 5.42 H (4.2-5.4) 10^6/uL Hgb 14.6 (12.0-16.0) g/dL Hct 44.2 (37.0-47.0) % MCV 81.5 (80-100) fL MCH 26.9 L (27.0-34.0) pg MCHC 33.0 (33.0-35.0) g/dL Plt Count 280 D (150-450) 10^3/uL Neut % (Auto) 77.0 H (42.2-75.2) % Lymph % (Auto) 13.9 L (20.5-50.1) % [place] % (Auto) 7.4 (2-8) % Eos % (Auto) 1.5 (1.0-3.0) % Baso % (Auto) 0.2 (0.0-1.0) % Sodium 137 (136-145) mmol/L Potassium 3.5 (3.5-5.1) mmol/L Chloride 100 (98-107) mmol/L Carbon Dioxide 22 (21-32) mmol/L Anion Gap 18.5 H (7-13) mEq/L BUN 12 (7-18) mg/dL Creatinine 0.78 (0.55-1.02) mg/dL Est Cr Clr Drug Dosing 93.18 mL/min Estimated GFR (MDRD) > 60 BUN/Creatinine Ratio 15.4 (No establ ref range) Glucose 232 H (74-99) mg/dL Lactic Acid 1.0 (0.4-2.0) mmol/L Calcium 8.9 (8.5-10.1) mg/dL Total Bilirubin 0.5 (0.2-1.0) mg/dL AST 13 L (15-37) U/L ALT 23 (14-59) U/L Alkaline Phosphatase 150 H (46-116) U/L Troponin I < 0.017 (0.000-0.056) ng/mL Total Protein 7.9 (6.4-8.2) g/dL Albumin 2.9 L (3.4-5.0) g/dL Globulin 5.0 Albumin/Globulin Ratio 0.58 Amylase 33 (25-115) U/L Lipase (73-393) U/L Urine Color (YELLOW) Urine Appearance (CLEAR) Urine pH (5.0-9.0) Ur Specific [place] (1.005-1.030) Urine Protein (NEGATIVE) Urine Glucose (UA) (NEGATIVE) Urine Ketones (NEGATIVE) Urine Occult Blood (NEGATIVE) Urine Nitrite (NEGATIVE) Urine Bilirubin (NEGATIVE) Urine Urobilinogen (0.2-1.0) mg/dL Ur Leukocyte Esterase (NEGATIVE) Urine RBC /HPF Urine WBC (0-5/HPF) /HPF Ur Epithelial Cells (NOT SEEN) /HPF Amorphous Sediment (NOT SEEN) /HPF Urine Bacteria (0-FEW/HPF) /HPF Granular Casts (Auto) Fine Granular Casts (NOT SEEN) /LPF Urine Mucus (NOT SEEN) /LPF Urine Yeast (NOT SEEN) /HPF SARS CoV-2 RNA Rapid CATINA (NEGATIVE) 08/18/20 08/18/20 08/18/20 Range/Units 01:28 01:30 02:28 WBC (5.0-10.0) 10^3/uL RBC (4.2-5.4) 10^6/uL Hgb (12.0-16.0) g/dL Hct (37.0-47.0) % MCV (80-100) fL MCH (27.0-34.0) pg MCHC (33.0-35.0) g/dL Plt Count (150-450) 10^3/uL Neut % (Auto) (42.2-75.2) % Lymph % (Auto) (20.5-50.1) % [place] % (Auto) (2-8) % Eos % (Auto) (1.0-3.0) % Baso % (Auto) (0.0-1.0) % Sodium (136-145) mmol/L Potassium (3.5-5.1) mmol/L Chloride (98-107) mmol/L Carbon Dioxide (21-32) mmol/L Anion Gap (7-13) mEq/L BUN (7-18) mg/dL Creatinine (0.55-1.02) mg/dL Est Cr Clr Drug Dosing mL/min Estimated GFR (MDRD) BUN/Creatinine Ratio (No establ ref range) Glucose (74-99) mg/dL Lactic Acid (0.4-2.0) mmol/L Calcium (8.5-10.1) mg/dL Total Bilirubin (0.2-1.0) mg/dL AST (15-37) U/L ALT (14-59) U/L Alkaline Phosphatase (46-116) U/L Troponin I (0.000-0.056) ng/mL Total Protein (6.4-8.2) g/dL Albumin (3.4-5.0) g/dL Globulin Albumin/Globulin Ratio Amylase (25-115) U/L Lipase 38 L (73-393) U/L Urine Color Yellow (YELLOW) Urine Appearance Cloudy (CLEAR) Urine pH 6.0 (5.0-9.0) Ur Specific [place] >= 1.030 (1.005-1.030) Urine Protein 100 H (NEGATIVE) Urine Glucose (UA) Negative (NEGATIVE) Urine Ketones 80 H (NEGATIVE) Urine Occult Blood Small H (NEGATIVE) Urine Nitrite Negative (NEGATIVE) Urine Bilirubin Moderate H (NEGATIVE) Urine Urobilinogen 0.2 (0.2-1.0) mg/dL Ur Leukocyte Esterase Negative (NEGATIVE) Urine RBC 5-10 H /HPF Urine WBC 0-5 (0-5/HPF) /HPF Ur Epithelial Cells Moderate H (NOT SEEN) /HPF Amorphous Sediment Few (NOT SEEN) /HPF Urine Bacteria Few (0-FEW/HPF) /HPF Granular Casts (Auto) Occasional Fine Granular Casts Few H (NOT SEEN) /LPF Urine Mucus Few H (NOT SEEN) /LPF Urine Yeast Moderate H (NOT SEEN) /HPF SARS CoV-2 RNA Rapid CATINA Negative (NEGATIVE) Meds: Medications Discontinued Medications Generic Name Dose Route Start Last Admin Trade Name Freq PRN Reason Stop Dose Admin Sodium Chloride 1,000 mls @ 500 mls/hr 08/18/20 01:23 08/18/20 01:40 Normal Saline IV 08/18/20 03:22 500 mls/hr .BOLUS ONE Administration Ondansetron HCl Confirm 08/18/20 01:33 08/18/20 02:00 Zofran Administered 08/18/20 01:34 Not Given Dose 4 mg .ROUTE .STK-MED ONE Ondansetron HCl 4 mg 08/18/20 01:38 08/18/20 01:59 Zofran IVPUSH 08/18/20 01:39 4 mg ONETIME ONE Administration Ondansetron HCl Confirm 08/18/20 03:13 Zofran Odt Administered 08/18/20 03:14 Dose 4 mg .ROUTE .STK-MED ONE - Re-Assessments/Exams Free Text/Narrative Re-Assessment/Exam: Intermittent dozing . no active vomiting during ED encounter. Departure - Departure Time of Disposition: 03:00 Disposition: Home, Self-Care 01 Condition: Good Clinical Impression: Gastroenteritis, Hyperglycemia - Discharge Information *PRESCRIPTION DRUG MONITORING PROGRAM REVIEWED*: No *COPY OF PRESCRIPTION DRUG MONITORING REPORT IN PATIENT ELEANOR: No Instructions: Viral Gastroenteritis, Adult, Dehydration, Adult, [id number] Referrals: Fiorella Ta MD [Primary Care Provider] - Forms: ED Department Discharge Additional Instructions: monitor blood sugars closely clinic follow up if not improving zofran 4mg ODT one every 44 hours as needed for nausea/ vomiting tylenol 650mg every 4 hours as needed for discomfort encourage fluids smaller amounts more frequently Sepsis Event Note (ED) - Evaluation Sepsis Screening Result: No Definite Risk - Focused Exam Vital Signs: Vital Signs Temp Pulse Resp BP Pulse Ox 08/18/20 00:39 96.5 F L 108 H 19 136/65 99 - My Orders Last 24 Hours: My Active Orders 08/18/20 01:25 Isolation [COMM] Routine - Assessment/Plan Last 24 Hours: My Active Orders 08/18/20 01:25 Isolation [COMM] Routine
[2020-08-18] MEDS ORDERED: Sodium Chloride 0.9% 1,000 ML IV ONE (01:23)
[2020-08-18] MEDS ORDERED: Ondansetron 4 MG/2 ML SDV IVPUSH ONE (01:38)
[2020-08-18] MEDS: Ondansetron 4 MG/2 ML SDV ONE ×2 (01:38→02:00)
[2020-08-18 02:19] LABS: ANION GAP 18.5 mEq/L (7-13); CHLORIDE,CL 100 mmol/L (98-107)
[2020-08-18 02:48] LABS: SODIUM,NA 137 mmol/L (136-145)
[2020-08-18] MEDS ORDERED: Ondansetron 4 MG Tab.DIS ONE (03:13)
== END 2020-08-18 03:20 | disposition home or self-care (01) ==
LOC: DL.ED 00:33
DX: K52.9 Noninfective gastroenteritis and colitis, unspecified (principal); E11.65 Type 2 diabetes mellitus with hyperglycemia; E11.21 Type 2 diabetes mellitus with diabetic nephropathy; F41.9 Anxiety disorder, unspecified; F32.9 Major depressive disorder, single episode, unspecified; Z88.0 Allergy status to penicillin; E66.9 Obesity, unspecified; Z91.030 Bee allergy status; Z79.899 Other long term (current) drug therapy; Z77.22 Contact with and (suspected) exposure to environmental tobacco smoke (acute) (chronic); Z79.4 Long term (current) use of insulin; Z20.828 Contact with and (suspected) exposure to other viral communicable diseases; Z88.8 Allergy status to other drugs, medicaments and biological substances
CPT/HCPCS: 36415; 80053; 81001; 82150; 82962; 83605; 83690; 84484; 85025; 87804; 96374; 99284; A9270; J2405; J7030; U0002

== ENCOUNTER 2020-09-23 14:03 | Emergency (ER) | payer MEDICARE, MEDICAID ==
[2020-09-23 17:46] VITALS: BP 110/69; PULSE 109
[2020-09-23] MEDS ORDERED: Acetaminophen/HYDROcodone 325-10 MG Tab PO ONE (18:38)
--- NOTE | 2020-09-23 19:10 | EDM.PDOC ---
<Monique Nunez Jero - Last Filed: 09/24/20 03:56> ED HPI GENERAL MEDICAL PROBLEM - General Chief Complaint: Respiratory Problem Stated Complaint: SEEING DOUBLE, COLD, HURTS TO BREATHE Time Seen by Provider: 09/23/20 17:55 - History of Present Illness INITIAL COMMENTS - FREE TEXT/NARRATIVE: Covid exposure in past 2 weeks through family member and takes care of their children. - Related Data Allergies Allergy/AdvReac Type Severity Reaction Status Date / Time bee venom protein (honey bee) Allergy Airway Verified 08/18/20 00:44 Tightness diphenhydramine HCl Allergy Anxiety Verified 08/18/20 00:44 [From Benadryl] penicillin Allergy Airway Verified 08/18/20 00:44 Tightness Home Meds: Home Meds Sertraline HCl [Zoloft] 200 mg PO BEDTIME 01/11/16 [History] Cyclobenzaprine [Flexeril] 10 mg PO Q8H PRN 12/19/16 [History] metFORMIN [Glucophage] 1,000 mg PO BIDMEALS 04/09/17 [History] Insulin Aspart [NovoLOG] 30 units SQ TIDMEALS 07/28/18 [History] traZODone HCl [Trazodone HCl] 50 mg PO BEDTIME 07/28/18 [History] Insulin Degludec [Tresiba Flextouch U-100] 84 units SQ BID 09/10/18 [History] Gabapentin [Neurontin] 600 mg PO TID 05/02/20 [History] oxyCODONE 5 mg PO Q4H PRN #7 tablet 05/04/20 [Rx] Hydrocodone/Acetaminophen [Hydrocodone-Acetamin 10-325 mg] 1 each PO TID 07/05/20 [History] ED ROS GENERAL - Review of Systems Review Of Systems: Comprehensive ROS is negative, except as noted in HPI. Constitutional: Reports: Malaise HEENT: Reports: Vision Change (last night double vision) Respiratory: Reports: Pleuritic Chest Pain Cardiovascular: Reports: Lightheadedness GI/Abdominal: Reports: Abdominal Pain (mid sharp), Constipation. Denies: Diarrhea, Distension, Nausea, Vomiting : Reports: No Symptoms Musculoskeletal: Reports: Other (body aches) Skin: Reports: No Symptoms Neurological: Reports: Dizziness (last night) ED EXAM, GENERAL - Physical Exam Exam: See Below Exam Limited By: No Limitations General Appearance: Alert, No Apparent Distress Eye Exam: Bilateral Eye: Conjunctival Injection, PERRL Ears: Normal External Exam, Hearing Grossly Normal Nose: Normal Inspection Throat/Mouth: Normal Inspection Head: Atraumatic, Normocephalic Neck: Normal Inspection Respiratory/Chest: No Respiratory Distress, Lungs Clear, Normal Breath Sounds Cardiovascular: Normal Peripheral Pulses, Regular Rate, Rhythm GI/Abdominal: Normal Bowel Sounds, Soft, Tender (mild mid ). No: Distended, Guarding Back Exam: Full Range of Motion Extremities: Normal Inspection Neurological: Alert, Oriented, Normal Cognition Psychiatric: Flat Affect Skin Exam: Warm, Dry, Intact, Normal Color Departure - Departure Time of Disposition: 21:50 Disposition: Home, Self-Care 01 Condition: Good Clinical Impression: Close exposure to 2019 novel coronavirus, Elevated LFTs Abdominal pain Qualifiers: Abdominal location: right lower quadrant Qualified Code(s): R10.31 - Right lower quadrant pain - Discharge Information *PRESCRIPTION DRUG MONITORING PROGRAM REVIEWED*: No *COPY OF PRESCRIPTION DRUG MONITORING REPORT IN PATIENT ELEANOR: No Instructions: COVID-19: How to Protect Yourself and Others - [facility] Referrals: PCP,Unobtain [Ordering Only Provider] - Forms: ED Department Discharge Additional Instructions: clinic follow up one 1- 2 weeks monitor temperature limit use of tylenol containing products increase fruit fiber in diet recheck COVID testing next week if continued mild symptoms quarantine <Treasure Bah - Last Filed: 09/24/20 07:21> ED HPI GENERAL MEDICAL PROBLEM - General Source of Information: Reports: Patient, RN, RN Notes Reviewed History Limitations: Reports: No Limitations - History of Present Illness INITIAL COMMENTS - FREE TEXT/NARRATIVE: Patient presents to the ED via personal vehicle with complaints of RUQ pain. The patient states the pain woke her from sleep at approximately 0345. She describes it as sharp, stabbing in nature and radiates into her back. She states she took one of her Hydros with minimal to no relief of pain. She feels the pain impacts her breathing so she is unable to take a deep breath. She denies fever, shaking chills, recent illness, chest pain, palpitations, dysuria, hematuria, diarrhea, melena, or hematochezia. She does attest to a history of cholecystectomy and appendectomy. Generalized Pain Score (Numeric/FACES): 5 Past Medical History - Past Health History Medical/Surgical History: Denies Medical/Surgical History HEENT History: Reports: Other (See Below) Other HEENT History: astygmatism Cardiovascular History: Reports: None Respiratory History: Reports: Bronchitis, Recurrent Gastrointestinal History: Reports: Cholelithiasis Other Gastrointestinal History: liver abscess x5 Genitourinary History: Reports: Diabetic Nephropathy SIDING MECHANIC History: Reports: Endometriosis, Other SIDING MECHANIC History: 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 Patient states she had a hysterectomy Musculoskeletal History: Reports: Fibromyalgia Neurological History: Reports: Migraines, Neuropathy, Diabetic, Neuropathy, Peripheral, Vertigo Psychiatric History: Reports: Anxiety, Depression, Panic Attack Endocrine/Metabolic History: Reports: Diabetes, Type II, IDDM, Obesity/BMI 30+, Other (See Below) Other Endocrine/Metabolic History: Is on UV insulin bid. does not know the exact name. Hematologic History: Reports: Blood Transfusion(s) Immunologic History: Reports: None Oncologic (Cancer) History: Reports: Other (See Below) Other Oncologic History: tumor removed from right breat non cancerous 2018 Dermatologic History: Reports: Cellulitis, Other (See Below) Other Dermatologic History: skin condition right forehead and orbital, thro ughout body. hydroitis supposrtive tibia - Infectious Disease History Infectious Disease History: Reports: MRSA - Past Surgical History Head Surgeries/Procedures: Reports: None HEENT Surgical History: Reports: None Respiratory Surgical History: Reports: None GI Surgical History: Reports: Cholecystectomy Female Surgical History: Reports: Hysterectomy, Other (See Below) Other Female Surgeries/Procedures: Tumor to rt. breast. Endocrine Surgical History: Reports: None Musculoskeletal Surgical History: Reports: None Social & Family History - Family History Family Medical History: No Pertinent Family History Cardiac: Reports: Hypertension Other Cardiac Family History: Mother Respiratory: Reports: COPD Other Respiratory Family Hisory: Mother OBGYN: Reports: Endometriosis Other OBGYN Family History: Mother Endocrine/Metabolic: Reports: Diabetes, type II Other Endocrine/Metabolic Family History: mother - Caffeine Use Caffeine Use: Reports: Other Caffeine Use Comment: Her statesment " I don't know" - Sexual History Sexual History: Reports: Sexually Active - Living Situation & Occupation Living situation: Reports: , with Family Occupation: Unemployed Course - Vital Signs Last Recorded V/S: Last Vital Signs Temp 98.7 F 09/23/20 17:43 Pulse 109 H 09/23/20 17:43 Resp 18 09/23/20 17:43 BP 110/69 09/23/20 17:43 Pulse Ox 100 09/23/20 17:43 - Orders/Labs/Meds Orders: Active Orders 24 hr Category Date Time Status HBSAG SCREEN [REF] Urgent Lab 09/23/20 18:48 Received HEP C VIRUS AB [REF] Urgent Lab 09/23/20 18:48 Received Isolation [COMM] Routine Oth 09/23/20 17:38 Active Labs: Laboratory Tests 09/23/20 09/23/20 09/23/20 Range/Units 17:29 18:48 18:48 WBC 9.4 (5.0-10.0) 10^3/uL RBC 4.85 (4.2-5.4) 10^6/uL Hgb 13.3 (12.0-16.0) g/dL Hct 39.8 (37.0-47.0) % MCV 82.1 (80-100) fL MCH 27.4 (27.0-34.0) pg MCHC 33.4 (33.0-35.0) g/dL Plt Count 271 (150-450) 10^3/uL Neut % (Auto) 77.1 H (42.2-75.2) % Lymph % (Auto) 14.3 L (20.5-50.1) % [place] % (Auto) 5.8 (2-8) % Eos % (Auto) 2.7 (1.0-3.0) % Baso % (Auto) 0.1 (0.0-1.0) % Sodium 132 L (136-145) mmol/L Potassium 3.9 (3.5-5.1) mmol/L Chloride 98 (98-107) mmol/L Carbon Dioxide 25 (21-32) mmol/L Anion Gap 12.9 (7-13) mEq/L BUN 9 (7-18) mg/dL Creatinine 0.84 (0.55-1.02) mg/dL Est Cr Clr Drug Dosing TNP Estimated GFR (MDRD) > 60 BUN/Creatinine Ratio 10.7 (No establ ref range) Glucose 207 H (74-99) mg/dL Lactic Acid (0.4-2.0) mmol/L Calcium 9.0 (8.5-10.1) mg/dL Total Bilirubin 1.9 H (0.2-1.0) mg/dL AST 611 H (15-37) U/L ALT 597 H (14-59) U/L Alkaline Phosphatase 446 H (46-116) U/L Total Protein 8.1 (6.4-8.2) g/dL Albumin 3.1 L (3.4-5.0) g/dL Globulin 5.0 Albumin/Globulin Ratio 0.62 Amylase 31 (25-115) U/L Lipase 55 L (73-393) U/L SARS-CoV-2 RNA (CATINA) Negative (NEGATIVE) 09/23/20 Range/Units 18:48 WBC (5.0-10.0) 10^3/uL RBC (4.2-5.4) 10^6/uL Hgb (12.0-16.0) g/dL Hct (37.0-47.0) % MCV (80-100) fL MCH (27.0-34.0) pg MCHC (33.0-35.0) g/dL Plt Count (150-450) 10^3/uL Neut % (Auto) (42.2-75.2) % Lymph % (Auto) (20.5-50.1) % [place] % (Auto) (2-8) % Eos % (Auto) (1.0-3.0) % Baso % (Auto) (0.0-1.0) % Sodium (136-145) mmol/L Potassium (3.5-5.1) mmol/L Chloride (98-107) mmol/L Carbon Dioxide (21-32) mmol/L Anion Gap (7-13) mEq/L BUN (7-18) mg/dL Creatinine (0.55-1.02) mg/dL Est Cr Clr Drug Dosing Estimated GFR (MDRD) BUN/Creatinine Ratio (No establ ref range) Glucose (74-99) mg/dL Lactic Acid 0.9 (0.4-2.0) mmol/L Calcium (8.5-10.1) mg/dL Total Bilirubin (0.2-1.0) mg/dL AST (15-37) U/L ALT (14-59) U/L Alkaline Phosphatase (46-116) U/L Total Protein (6.4-8.2) g/dL Albumin (3.4-5.0) g/dL Globulin Albumin/Globulin Ratio Amylase (25-115) U/L Lipase (73-393) U/L SARS-CoV-2 RNA (CATINA) (NEGATIVE) Meds: Medications Discontinued Medications Generic Name Dose Route Start Last Admin Trade Name Freq PRN Reason Stop Dose Admin Hydrocodone Bitart/Acetaminophen 1 tab 09/23/20 18:38 09/23/20 19:11 [place] 325-10 Mg PO 09/23/20 18:39 1 tab ONETIME ONE Administration Sodium Chloride 1,000 mls @ 999 mls/hr 09/23/20 20:31 09/23/20 20:55 Normal Saline IV 09/23/20 21:31 999 mls/hr .BOLUS ONE Administration Iopamidol 100 ml 09/23/20 20:27 09/23/20 20:33 Isovue-300 (61%) IVPUSH 09/23/20 20:28 100 ml ONETIME ONE Administration Sepsis Event Note (ED) - Evaluation Sepsis Screening Result: No Definite Risk - My Orders Last 24 Hours: My Active Orders 09/23/20 17:38 Isolation [COMM] Routine - Assessment/Plan Last 24 Hours: My Active Orders 09/23/20 17:38 Isolation [COMM] Routine
[2020-09-23 19:14] LABS: ANION GAP 12.9 mEq/L (7-13); CHLORIDE,CL 98 mmol/L (98-107); SODIUM,NA 132 mmol/L (136-145)
[2020-09-23] MEDS ORDERED: Iopamidol 612 MG/ML 100 ML Bottle IVPUSH ONE (20:27)
[2020-09-23] MEDS ORDERED: Sodium Chloride 0.9% 1,000 ML IV ONE (20:31)
--- NOTE | 2020-09-23 21:44 | CT ---
PROCEDURE INFORMATION: Exam: CT Abdomen And Pelvis With Contrast Exam date and time: 09/23/2020 8:45 PM Age: 45 years old Clinical indication: Other: Pain, normal wbc; Additional info: Abdominal pain; Elevated lfts TECHNIQUE: Imaging protocol: Computed tomography of the abdomen and pelvis with intravenous contrast. Radiation optimization: All CT scans at this facility use at least one of these dose optimization techniques: automated exposure control; mA and/or kV adjustment per patient size (includes targeted exams where dose is matched to clinical indication); or iterative reconstruction. Contrast material: [id number]; Contrast volume: 100 ml; Contrast route: INTRAVENOUS (IV); COMPARISON: CT Abdomen Pelvis w Cont 07/05/2020 12:22 PM FINDINGS: Liver: There is hepatic steatosis and mild hepatomegaly Gallbladder and bile ducts: There is mild pneumobilia. Gallbladder surgically absent. Pancreas: Normal. No ductal dilation. Spleen: There is splenomegaly Adrenal glands: Normal. No mass. Kidneys and ureters: Normal. No hydronephrosis. Stomach and bowel: Unremarkable. No obstruction. No mucosal thickening. Appendix: No evidence of appendicitis. Intraperitoneal space: Unremarkable. No free air. No significant fluid collection. Vasculature: Unremarkable. No abdominal aortic aneurysm. Lymph nodes: Unremarkable. No enlarged lymph nodes. Urinary bladder: Unremarkable as visualized. Reproductive: Unremarkable as visualized. Bones/joints: Unremarkable. No acute fracture. Soft tissues: Unremarkable. IMPRESSION: 1. Hepatic steatosis 2. Hepatosplenomegaly 3. pneumobilia is most likely due to prior biliary intervention. Infection not excluded
== END 2020-09-23 22:03 | disposition home or self-care (01) ==
LOC: DL.ED 14:03
DX: R10.31 Right lower quadrant pain (principal); R10.11 Right upper quadrant pain; E11.42 Type 2 diabetes mellitus with diabetic polyneuropathy; R79.89 Other specified abnormal findings of blood chemistry; Z20.828 Contact with and (suspected) exposure to other viral communicable diseases; Z91.030 Bee allergy status; Z88.0 Allergy status to penicillin; Z88.8 Allergy status to other drugs, medicaments and biological substances; Z79.4 Long term (current) use of insulin; Z79.899 Other long term (current) drug therapy
CPT/HCPCS: 36415; 74177; 80053; 82150; 83605; 83690; 85025; 86803; 87340; 87804; 99285; A9270; J7030; Q9967; U0002

== ENCOUNTER 2020-11-02 00:26 | Emergency (ER) | payer MEDICARE, MEDICAID ==
--- NOTE | 2020-11-02 01:56 | EDM.PDOC ---
ED HPI GENERAL MEDICAL PROBLEM - General Chief Complaint: Respiratory Problem Stated Complaint: RIGHT LUNG HURTZ "CANT BREATH" Time Seen by Provider: 11/02/20 01:35 Source of Information: Reports: Patient History Limitations: Reports: No Limitations - History of Present Illness INITIAL COMMENTS - FREE TEXT/NARRATIVE: This 45 yo female patient reports to the ED with a 1 week history of a dry cough and a 1 day history of increased shortness of breath. The patient reports she has been having some discomfort to the right side of her chest. The patient has a depressed immune system (on Taryn). The patient does smoke, but has not been able to in the past 3 days. Onset: Gradual Duration: Day(s): Location: Reports: Chest (right side) Severity: Moderate Improves with: Reports: None Worsens with: Reports: None Context: Reports: Other Associated Symptoms: Reports: No Other Symptoms Right Upper Chest Pain Score (Numeric/FACES): 6 - Related Data Allergies Allergy/AdvReac Type Severity Reaction Status Date / Time bee venom protein (honey bee) Allergy Airway Verified 11/02/20 00:44 Tightness diphenhydramine HCl Allergy Anxiety Verified 11/02/20 00:44 [From Benadryl] penicillin Allergy Airway Verified 11/02/20 00:44 Tightness Home Meds: Home Meds Cyclobenzaprine [Flexeril] 10 mg PO Q8H PRN 12/19/16 [History] Insulin Aspart [NovoLOG] 30 units SQ TIDMEALS 07/28/18 [History] traZODone HCl [Trazodone HCl] 50 mg PO BEDTIME 07/28/18 [History] Insulin Degludec [Tresiba Flextouch U-100] 60 units SQ BID 09/10/18 [History] Gabapentin [Neurontin] 600 mg PO TID 05/02/20 [History] Hydrocodone/Acetaminophen [Hydrocodone-Acetamin 10-325 mg] 1 each PO TID 07/05/20 [History] oxyCODONE 5 mg PO Q4H PRN 11/02/20 [History] Past Medical History - Past Health History Medical/Surgical History: Denies Medical/Surgical History HEENT History: Reports: Other (See Below) Other HEENT History: astygmatism Cardiovascular History: Reports: None Respiratory History: Reports: Bronchitis, Recurrent Gastrointestinal History: Reports: Cholelithiasis Other Gastrointestinal History: liver abscess x5 Genitourinary History: Reports: Diabetic Nephropathy DIRECTOR PROCESS ENGINEERING History: Reports: Endometriosis, Other DIRECTOR PROCESS ENGINEERING History: 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 Patient states she had a hysterectomy Musculoskeletal History: Reports: Fibromyalgia Neurological History: Reports: Migraines, Neuropathy, Diabetic, Neuropathy, Peripheral, Vertigo Psychiatric History: Reports: Anxiety, Depression, Panic Attack Endocrine/Metabolic History: Reports: Diabetes, Type II, IDDM, Obesity/BMI 30+ Other Endocrine/Metabolic History: Is on UV insulin bid. does not know the exact name. 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 hydroitis supposrtive tibia - Infectious Disease History Infectious Disease History: Reports: MRSA - Past Surgical History Head Surgeries/Procedures: Reports: None HEENT Surgical History: Reports: None Respiratory Surgical History: Reports: None GI Surgical History: Reports: Cholecystectomy Female Surgical History: Reports: Hysterectomy, Other (See Below) Other Female Surgeries/Procedures: Tumor to rt. breast. Endocrine Surgical History: Reports: None Musculoskeletal Surgical History: Reports: None Social & Family History - Family History Family Medical History: No Pertinent Family History Cardiac: Reports: Hypertension Other Cardiac Family History: Mother Respiratory: Reports: COPD Other Respiratory Family Hisory: Mother OBGYN: Reports: Endometriosis Other OBGYN Family History: Mother Endocrine/Metabolic: Reports: Diabetes, type II Other Endocrine/Metabolic Family History: mother - Tobacco Use Tobacco Use Status *Q: Current Every Day Tobacco User Years of Tobacco use: 25 Packs/Tins Daily: 1 Used Tobacco, but Quit: Yes Month/Year Tobacco Last Used: 3 days ago Second Hand Smoke Exposure: Yes - Caffeine Use Caffeine Use: Reports: Coffee Caffeine Use Comment: Her statesment " I don't know" - Recreational Drug Use Recreational Drug Use: No - Sexual History Sexual History: Reports: Sexually Active - Living Situation & Occupation Living situation: Reports: , with Family Occupation: Unemployed ED ROS GENERAL - Review of Systems Review Of Systems: Comprehensive ROS is negative, except as noted in HPI. ED EXAM, GENERAL - Physical Exam Exam: See Below Exam Limited By: No Limitations General Appearance: Alert, WD/WN, No Apparent Distress, Obese Eye Exam: Bilateral Eye: EOMI, Normal Inspection, PERRL Ears: Normal External Exam, Normal Canal, Hearing Grossly Normal, Normal TMs Nose: Normal Inspection, Normal Mucosa, No Blood Throat/Mouth: Normal Inspection, Normal Lips, Normal Teeth, Normal Gums, Normal Oropharynx, Normal Voice, No Airway Compromise Head: Atraumatic, Normocephalic Neck: Normal Inspection, Supple, Non-Tender, Full Range of Motion Respiratory/Chest: No Respiratory Distress, No Accessory Muscle Use, Chest Non- Tender, Wheezing (right lower lobe) Cardiovascular: Normal Peripheral Pulses, Regular Rate, Rhythm, No Edema, No Gallop, No JVD, No Murmur, No Rub GI/Abdominal: Normal Bowel Sounds, Soft, Non-Tender, No Organomegaly, No Distention, No Abnormal Bruit, No Mass (Female) Exam: Deferred Rectal (Female) Exam: Deferred Back Exam: Normal Inspection, Full Range of Motion, NT Extremities: Normal Inspection, Normal Range of Motion, Non-Tender, Normal Capillary Refill, No Pedal Edema Neurological: Alert, Oriented, CN II-XII Intact, Normal Cognition, Normal Gait, Normal Reflexes, No Motor/Sensory Deficits Psychiatric: Normal Affect, Normal Mood Skin Exam: Warm, Dry, Intact, Normal Color, No Rash Lymphatic: No Adenopathy Course - Vital Signs Last Recorded V/S: Last Vital Signs Temp 36.3 C 11/02/20 02:21 Pulse 106 H 11/02/20 02:21 Resp 18 11/02/20 02:21 BP 111/71 11/02/20 02:21 Pulse Ox 97 11/02/20 02:21 - Orders/Labs/Meds Orders: Active Orders 24 hr Category Date Time Status CULTURE BLOOD [BC] Stat Lab 11/02/20 01:51 Received Labs: Laboratory Tests 11/02/20 11/02/20 11/02/20 Range/Units 00:50 01:51 01:51 WBC 10.7 H (5.0-10.0) 10^3/uL RBC 4.97 (4.2-5.4) 10^6/uL Hgb 13.1 (12.0-16.0) g/dL Hct 40.1 (37.0-47.0) % MCV 80.7 (80-100) fL MCH 26.4 L (27.0-34.0) pg MCHC 32.7 L (33.0-35.0) g/dL Plt Count 376 D (150-450) 10^3/uL Neut % (Auto) 71.8 (42.2-75.2) % Lymph % (Auto) 16.6 L (20.5-50.1) % [place] % (Auto) 8.0 (2-8) % Eos % (Auto) 3.4 H (1.0-3.0) % Baso % (Auto) 0.2 (0.0-1.0) % D-Dimer, Quantitative 1410 H (0-400) ng/mL Sodium (136-145) mmol/L Potassium (3.5-5.1) mmol/L Chloride (98-107) mmol/L Carbon Dioxide (21-32) mmol/L Anion Gap (7-13) mEq/L BUN (7-18) mg/dL Creatinine (0.55-1.02) mg/dL Est Cr Clr Drug Dosing mL/min Estimated GFR (MDRD) BUN/Creatinine Ratio (No establ ref range) Glucose (74-99) mg/dL Lactic Acid (0.4-2.0) mmol/L Calcium (8.5-10.1) mg/dL Total Bilirubin (0.2-1.0) mg/dL AST (15-37) U/L ALT (14-59) U/L Alkaline Phosphatase (46-116) U/L Total Protein (6.4-8.2) g/dL Albumin (3.4-5.0) g/dL Globulin Albumin/Globulin Ratio SARS-CoV-2 RNA (CATINA) Negative (NEGATIVE) 11/02/20 11/02/20 Range/Units 01:51 01:51 WBC (5.0-10.0) 10^3/uL RBC (4.2-5.4) 10^6/uL Hgb (12.0-16.0) g/dL Hct (37.0-47.0) % MCV (80-100) fL MCH (27.0-34.0) pg MCHC (33.0-35.0) g/dL Plt Count (150-450) 10^3/uL Neut % (Auto) (42.2-75.2) % Lymph % (Auto) (20.5-50.1) % [place] % (Auto) (2-8) % Eos % (Auto) (1.0-3.0) % Baso % (Auto) (0.0-1.0) % D-Dimer, Quantitative (0-400) ng/mL Sodium 128 L (136-145) mmol/L Potassium 3.9 (3.5-5.1) mmol/L Chloride 94 L (98-107) mmol/L Carbon Dioxide 29 (21-32) mmol/L Anion Gap 8.9 (7-13) mEq/L BUN 14 (7-18) mg/dL Creatinine 1.00 (0.55-1.02) mg/dL Est Cr Clr Drug Dosing 70.16 mL/min Estimated GFR (MDRD) 59 BUN/Creatinine Ratio 14.0 (No establ ref range) Glucose 382 H (74-99) mg/dL Lactic Acid 1.0 (0.4-2.0) mmol/L Calcium 9.1 (8.5-10.1) mg/dL Total Bilirubin 0.3 (0.2-1.0) mg/dL AST 17 (15-37) U/L ALT 34 (14-59) U/L Alkaline Phosphatase 268 H (46-116) U/L Total Protein 9.1 H (6.4-8.2) g/dL Albumin 3.0 L (3.4-5.0) g/dL Globulin 6.1 Albumin/Globulin Ratio 0.49 SARS-CoV-2 RNA (CATINA) (NEGATIVE) Meds: Medications Discontinued Medications Generic Name Dose Route Start Last Admin Trade Name Freq PRN Reason Stop Dose Admin Azithromycin 500 mg 11/02/20 04:04 Zithromax PO 11/02/20 04:05 ONETIME ONE Iopamidol 100 ml 11/02/20 02:29 11/02/20 03:23 Isovue-370 (76%) IVPUSH 11/02/20 02:30 75 ml ONETIME ONE Administration Departure - Departure Time of Disposition: 04:05 Disposition: Home, Self-Care 01 Condition: Fair Clinical Impression: Bronchitis - Discharge Information *PRESCRIPTION DRUG MONITORING PROGRAM REVIEWED*: Not Applicable *COPY OF PRESCRIPTION DRUG MONITORING REPORT IN PATIENT ELEANOR: Not Applicable Instructions: Acute Bronchitis, Adult, [id number] Forms: ED Department Discharge Care Plan Goals: The patient was advised of the examination and lab results during the visit. The patient was given an oral dose of Azithromycin while in the ED. The patient was discharged with a script for Azithromycin (250 mg) #4 to take 1 by mouth daily starting 11/03/20. If the patient has any additional symptoms or concerns, the patient should visit her primary care facility or return to the emergency department. Sepsis Event Note (ED) - Evaluation Sepsis Screening Result: No Definite Risk - Focused Exam Vital Signs: Vital Signs Temp Pulse Resp BP Pulse Ox 11/02/20 02:21 36.3 C 106 H 18 111/71 97 11/02/20 00:35 36.3 C 114 H 20 151/83 H 98 - My Orders Last 24 Hours: My Active Orders 11/02/20 01:51 CULTURE BLOOD [BC] Stat - Assessment/Plan Last 24 Hours: My Active Orders 11/02/20 01:51 CULTURE BLOOD [BC] Stat
[2020-11-02 02:17] LABS: ANION GAP 8.9 mEq/L (7-13)
[2020-11-02 02:22] VITALS: BP 111/71; PULSE 106
--- NOTE | 2020-11-02 02:24 | CR ---
PROCEDURE INFORMATION: Exam: XR Chest, 2 Views Exam date and time: 11/02/2020 2:00 AM Age: 45 years old Clinical indication: Other: Short of breath TECHNIQUE: Imaging protocol: XR of the chest Views: 2 views. COMPARISON: CR Chest 1V Frontal 09/11/2017 2:26 AM FINDINGS: Lungs: Unremarkable. No consolidation. Pleural space: Unremarkable. No pleural effusion. No pneumothorax. Heart/Mediastinum: Unremarkable. No cardiomegaly. Bones/joints: Unremarkable. IMPRESSION: No acute findings.
[2020-11-02] MEDS ORDERED: Iopamidol 755 Mg/ML 100 ML Bottle IVPUSH ONE (02:29)
--- NOTE | 2020-11-02 04:02 | CT ---
PROCEDURE INFORMATION: Exam: CT Angiography Chest With Contrast Exam date and time: 11/02/2020 2:50 AM Age: 45 years old Clinical indication: Other: Short of breath, + d-dimer TECHNIQUE: Imaging protocol: Computed tomographic angiography of the chest with intravenous contrast. 3D rendering (Not supervised by radiologist): MIP and/or 3D reconstructed images were created and reviewed. Radiation optimization: All CT scans at this facility use at least one of these dose optimization techniques: automated exposure control; mA and/or kV adjustment per patient size (includes targeted exams where dose is matched to clinical indication); or iterative reconstruction. Contrast material: ISOVUE 370; Contrast volume: 75 ml; Contrast route: INTRAVENOUS (IV); COMPARISON: CR Chest 2V 11/02/2020 2:00 AM FINDINGS: Pulmonary arteries: Normal. No pulmonary emboli. Aorta: Unremarkable. No aortic aneurysm. No aortic dissection. Lungs: Unremarkable. No consolidation. No masses. Pleural space: Unremarkable. No pneumothorax. No pleural effusion. Heart: Unremarkable. No cardiomegaly. No pericardial effusion. Lymph nodes: Unremarkable. No enlarged lymph nodes. Bones/joints: Unremarkable. No acute fracture. Soft tissues: Unremarkable. IMPRESSION: 1. No acute findings. 2. No evidence for acute pulmonary emboli
[2020-11-02] MEDS ORDERED: Azithromycin 250 MG Tab PO ONE (04:04)
== END 2020-11-02 04:13 | disposition home or self-care (01) ==
LOC: DL.ED 00:26
DX: J40 Bronchitis, not specified as acute or chronic (principal); E11.21 Type 2 diabetes mellitus with diabetic nephropathy; E11.42 Type 2 diabetes mellitus with diabetic polyneuropathy; E66.9 Obesity, unspecified; Z68.36 Body mass index [BMI] 36.0-36.9, adult; Z20.822 Contact with and (suspected) exposure to COVID-19; Z91.030 Bee allergy status; Z88.8 Allergy status to other drugs, medicaments and biological substances; Z88.0 Allergy status to penicillin; Z79.4 Long term (current) use of insulin; Z79.899 Other long term (current) drug therapy; Z72.0 Tobacco use
CPT/HCPCS: 36415; 71046; 71260; 80053; 83605; 85025; 85379; 87040; 99283; 99285; A9270; Q9967; U0002

== ENCOUNTER 2020-12-23 09:37 | Emergency (ER) | payer MEDICARE, MEDICAID ==
[2020-12-23 09:49] VITALS: BP 90/73; PULSE 128
--- NOTE | 2020-12-23 09:52 | EDM.PDOC ---
ED HPI GENERAL MEDICAL PROBLEM - General Chief Complaint: Abdominal Pain Stated Complaint: SEVERE ABDOMINAL PAIN Time Seen by Provider: 12/23/20 09:50 Source of Information: Reports: Patient, Old Records, RN, RN Notes Reviewed History Limitations: Reports: No Limitations - History of Present Illness INITIAL COMMENTS - FREE TEXT/NARRATIVE: Pt presents to ER from home by POV with c/o severe pain to the right upper abdomen and flank/side just below the right breast. Pt reports that the pain developed gradually on 12/22/20 starting about 2230hrs and has been constant since, and interfering with sleep. Pt rates the pain 10/10. The pain is worse with lying down and sharp with movement. Nothing alleviates the pain. The pain does not radiate. Admits to nausea. Denies vomiting, fever, chills, dysuria, hematuria, chest pain, back pain, or diarrhea. Reports Hx of chronic constipation. Pt is on chronic opiates for her chronic pain. She reports no relief of the current abdominal pain from her chronic pain medications. Pain also worse with anxiety. Pt states that on Sunday she was buying groceries and she became very pale and felt dizzy, hot and clammy and needed to sit down, and the pain began shortly after that. Onset: Gradual Onset Date: 12/20/20 Duration: Constant Location: Reports: Abdomen Quality: Reports: Ache Severity: Severe Associated Symptoms: Reports: No Other Symptoms right flank/side Pain Score (Numeric/FACES): 9 - Related Data Allergies Allergy/AdvReac Type Severity Reaction Status Date / Time bee venom protein (honey bee) Allergy Airway Verified 12/23/20 09:59 Tightness diphenhydramine HCl Allergy Anxiety Verified 12/23/20 09:59 [From Benadryl] penicillin Allergy Airway Verified 12/23/20 09:59 Tightness Home Meds: Home Meds Cyclobenzaprine [Flexeril] 10 mg PO Q8H PRN 12/19/16 [History] Insulin Aspart [NovoLOG] 30 units SQ TIDMEALS 07/28/18 [History] traZODone HCl [Trazodone HCl] 50 mg PO BEDTIME 07/28/18 [History] Insulin Degludec [Tresiba Flextouch U-100] 60 units SQ BID 09/10/18 [History] Gabapentin [Neurontin] 600 mg PO TID 05/02/20 [History] Hydrocodone/Acetaminophen [Hydrocodone-Acetamin 10-325 mg] 1 each PO TID 07/05/20 [History] oxyCODONE 5 mg PO Q4H PRN 11/02/20 [History] Past Medical History - Past Health History Medical/Surgical History: Denies Medical/Surgical History HEENT History: Reports: Other (See Below) Other HEENT History: astygmatism Cardiovascular History: Reports: None Respiratory History: Reports: Bronchitis, Recurrent Gastrointestinal History: Reports: Cholelithiasis Other Gastrointestinal History: liver abscess x5 Genitourinary History: Reports: Diabetic Nephropathy FILM EXAMINER History: Reports: Endometriosis, Other FILM EXAMINER History: 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 Patient states she had a hysterectomy Musculoskeletal History: Reports: Fibromyalgia Neurological History: Reports: Migraines, Neuropathy, Diabetic, Neuropathy, Peripheral, Vertigo Psychiatric History: Reports: Anxiety, Depression, Panic Attack Endocrine/Metabolic History: Reports: Diabetes, Type II, IDDM, Obesity/BMI 30+ Other Endocrine/Metabolic History: Is on UV insulin bid. does not know the exact name. 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 hydroitis supposrtive tibia - Infectious Disease History Infectious Disease History: Reports: MRSA - Past Surgical History Head Surgeries/Procedures: Reports: None HEENT Surgical History: Reports: None Respiratory Surgical History: Reports: None GI Surgical History: Reports: Cholecystectomy Female Surgical History: Reports: Hysterectomy, Other (See Below) Other Female Surgeries/Procedures: Tumor to rt. breast. Endocrine Surgical History: Reports: None Musculoskeletal Surgical History: Reports: None Social & Family History - Family History Family Medical History: No Pertinent Family History Cardiac: Reports: Hypertension Other Cardiac Family History: Mother Respiratory: Reports: COPD Other Respiratory Family Hisory: Mother OBGYN: Reports: Endometriosis Other OBGYN Family History: Mother Endocrine/Metabolic: Reports: Diabetes, type II Other Endocrine/Metabolic Family History: mother - Caffeine Use Caffeine Use: Reports: Coffee Caffeine Use Comment: Her statesment " I don't know" - Sexual History Sexual History: Reports: Sexually Active - Living Situation & Occupation Living situation: Reports: , with Family Occupation: Unemployed ED ROS GENERAL - Review of Systems Review Of Systems: Comprehensive ROS is negative, except as noted in HPI. ED EXAM, GI/ABD - Physical Exam Exam: See Below Exam Limited By: No Limitations General Appearance: Alert, WD/WN, No Apparent Distress Eyes: Bilateral: Normal Appearance (No scleral icterus), EOMI Nose: Normal Inspection, No Blood Throat/Mouth: Normal Lips, Normal Voice, No Airway Compromise Head: Atraumatic, Normocephalic Neck: Normal Inspection Respiratory/Chest: No Respiratory Distress, Lungs Clear, No Accessory Muscle Use, Chest Non-Tender, Decreased Breath Sounds Cardiovascular: Regular Rate, Rhythm, Tachycardia GI/Abdominal Exam: Normal Bowel Sounds, Soft, No Distention, Pelvis Stable, Tender (RUQ). No: Guarding, Rigid, Rebound (Female) Exam: Deferred Rectal (Female) Exam: Deferred Back Exam: Normal Inspection, CVA Tenderness (R). No: CVA Tenderness (L) Extremities: Normal Inspection, Non-Tender, No Pedal Edema Neurological: Alert, Oriented, Normal Cognition, Normal Gait, No Motor/Sensory Deficits Psychiatric: Normal Affect, Normal Mood Skin Exam: Warm, Dry, Intact, Normal Color, No Rash Course - Vital Signs Last Recorded V/S: Last Vital Signs Temp 96.5 F L 12/23/20 09:48 Pulse 128 H 12/23/20 09:48 Resp 18 12/23/20 09:48 BP 90/73 12/23/20 09:48 Pulse Ox 99 12/23/20 09:48 - Orders/Labs/Meds Orders: Active Orders 24 hr Category Date Time Status Peripheral IV Care [RC] . DIRECTED Care 12/23/20 10:06 Active CULTURE BLOOD [BC] Stat Lab 12/23/20 10:15 Received CULTURE BLOOD [BC] Stat Lab 12/23/20 10:19 Received CULTURE URINE [RM] Stat Lab 12/23/20 11:25 Received Sodium Chloride 0.9% [Saline Flush] Med 12/23/20 10:05 Active 10 ml FLUSH ASDIRECTED PRN Blood Culture x2 Reflex Set [OM.PC] Stat Oth 12/23/20 10:05 Ordered Peripheral IV Insertion Adult [OM.PC] Stat Oth 12/23/20 10:06 Ordered Medication Orders Sodium Chloride (Saline Flush) 10 ml FLUSH ASDIRECTED PRN PRN Reason: Keep Vein Open Last Admin: 12/23/20 13:26 Dose: 10 ml Documented by: Admin: 12/23/20 13:17 Dose: 10 ml Documented by: Admin: 12/23/20 10:30 Dose: 10 ml Documented by: TRISTON Labs: Laboratory Tests 12/23/20 12/23/20 12/23/20 Range/Units 10:15 10:15 10:15 WBC 12.4 H (5.0-10.0) 10^3/uL RBC 5.04 (4.2-5.4) 10^6/uL Hgb 12.6 (12.0-16.0) g/dL Hct 39.5 (37.0-47.0) % MCV 78.4 L (80-100) fL MCH 25.0 L (27.0-34.0) pg MCHC 31.9 L (33.0-35.0) g/dL Plt Count 405 (150-450) 10^3/uL Neut % (Auto) 77.8 H (42.2-75.2) % Lymph % (Auto) 13.3 L (20.5-50.1) % [place] % (Auto) 7.0 (2-8) % Eos % (Auto) 1.8 (1.0-3.0) % Baso % (Auto) 0.1 (0.0-1.0) % Sodium 135 L (136-145) mmol/L Potassium 4.2 (3.5-5.1) mmol/L Chloride 95 L (98-107) mmol/L Carbon Dioxide 28 (21-32) mmol/L Anion Gap 16.2 H (7-13) mEq/L BUN 8 (7-18) mg/dL Creatinine 0.92 (0.55-1.02) mg/dL Est Cr Clr Drug Dosing 76.26 mL/min Estimated GFR (MDRD) > 60 BUN/Creatinine Ratio 8.7 (No establ ref range) Glucose 313 H (74-99) mg/dL Lactic Acid (0.4-2.0) mmol/L Calcium 9.2 (8.5-10.1) mg/dL Total Bilirubin 0.5 (0.2-1.0) mg/dL AST 18 (15-37) U/L ALT 28 (14-59) U/L Alkaline Phosphatase 241 H (46-116) U/L Lactate Dehydrogenase 154 (81-234) U/L Total Protein 9.5 H (6.4-8.2) g/dL Albumin 2.5 L (3.4-5.0) g/dL Globulin 7.0 Albumin/Globulin Ratio 0.36 Amylase 22 L (25-115) U/L Lipase 28 L (73-393) U/L Urine Color (YELLOW) Urine Appearance (CLEAR) Urine pH (5.0-9.0) Ur Specific [place] (1.005-1.030) Urine Protein (NEGATIVE) Urine Glucose (UA) (NEGATIVE) Urine Ketones (NEGATIVE) Urine Occult Blood (NEGATIVE) Urine Nitrite (NEGATIVE) Urine Bilirubin (NEGATIVE) Urine Urobilinogen (0.2-1.0) mg/dL Ur Leukocyte Esterase (NEGATIVE) Urine RBC /HPF Urine WBC (0-5/HPF) /HPF Ur Epithelial Cells (NOT SEEN) /HPF Urine Bacteria (0-FEW/HPF) /HPF Granular Casts (Auto) Urine Mucus (NOT SEEN) /LPF 12/23/20 12/23/20 Range/Units 10:19 11:25 WBC (5.0-10.0) 10^3/uL RBC (4.2-5.4) 10^6/uL Hgb (12.0-16.0) g/dL Hct (37.0-47.0) % MCV (80-100) fL MCH (27.0-34.0) pg MCHC (33.0-35.0) g/dL Plt Count (150-450) 10^3/uL Neut % (Auto) (42.2-75.2) % Lymph % (Auto) (20.5-50.1) % [place] % (Auto) (2-8) % Eos % (Auto) (1.0-3.0) % Baso % (Auto) (0.0-1.0) % Sodium (136-145) mmol/L Potassium (3.5-5.1) mmol/L Chloride (98-107) mmol/L Carbon Dioxide (21-32) mmol/L Anion Gap (7-13) mEq/L BUN (7-18) mg/dL Creatinine (0.55-1.02) mg/dL Est Cr Clr Drug Dosing mL/min Estimated GFR (MDRD) BUN/Creatinine Ratio (No establ ref range) Glucose (74-99) mg/dL Lactic Acid 1.3 (0.4-2.0) mmol/L Calcium (8.5-10.1) mg/dL Total Bilirubin (0.2-1.0) mg/dL AST (15-37) U/L ALT (14-59) U/L Alkaline Phosphatase (46-116) U/L Lactate Dehydrogenase (81-234) U/L Total Protein (6.4-8.2) g/dL Albumin (3.4-5.0) g/dL Globulin Albumin/Globulin Ratio Amylase (25-115) U/L Lipase (73-393) U/L Urine Color Dark yellow (YELLOW) Urine Appearance Turbid (CLEAR) Urine pH 5.5 (5.0-9.0) Ur Specific [place] >= 1.030 (1.005-1.030) Urine Protein >=300 H (NEGATIVE) Urine Glucose (UA) 100 H (NEGATIVE) Urine Ketones 15 H (NEGATIVE) Urine Occult Blood Small H (NEGATIVE) Urine Nitrite Positive H (NEGATIVE) Urine Bilirubin Small H (NEGATIVE) Urine Urobilinogen 1.0 (0.2-1.0) mg/dL Ur Leukocyte Esterase Small H (NEGATIVE) Urine RBC 0-5 /HPF Urine WBC 50-75 H (0-5/HPF) /HPF Ur Epithelial Cells Many H (NOT SEEN) /HPF Urine Bacteria Moderate H (0-FEW/HPF) /HPF Granular Casts (Auto) Few Urine Mucus Few H (NOT SEEN) /LPF Meds: Medications Generic Name Dose Route Start Last Admin Trade Name Freq PRN Reason Stop Dose Admin Sodium Chloride 10 ml 12/23/20 10:05 12/23/20 13:26 Saline Flush FLUSH 10 ml ASDIRECTED PRN Administration Keep Vein Open Discontinued Medications Generic Name Dose Route Start Last Admin Trade Name Freq PRN Reason Stop Dose Admin Hydromorphone HCl 0.5 mg 12/23/20 10:07 12/23/20 10:33 Dilaudid IVPUSH 12/23/20 10:08 0.5 mg ONETIME ONE Administration Hydromorphone HCl 0.5 mg 12/23/20 11:36 12/23/20 11:44 Dilaudid IVPUSH 12/23/20 11:37 0.5 mg ONETIME ONE Administration Sodium Chloride 1,000 mls @ 999 mls/hr 12/23/20 10:07 12/23/20 12:22 Normal Saline IV 12/23/20 11:07 Infused .BOLUS ONE Infusion Levofloxacin/Dextrose 500 mg/ 100 mls @ 100 mls/hr 12/23/20 12:01 12/23/20 13:28 Premix IV 12/23/20 13:00 Infused ONETIME ONE Infusion Lorazepam 1 mg 12/23/20 13:11 12/23/20 13:25 Ativan IVPUSH 12/23/20 13:12 1 mg ONETIME ONE Administration Metronidazole 500 mg 12/23/20 12:37 12/23/20 12:55 Metronidazole PO 12/23/20 12:38 500 mg ONETIME ONE Administration Ondansetron HCl 4 mg 12/23/20 10:07 12/23/20 10:31 Zofran IV 12/23/20 10:08 4 mg ONETIME ONE Administration - Radiology Interpretation Free Text/Narrative:: CT Abd/Pelvis: Hepatosplenomegaly and mild fatty infil., inhomogeneously dense liver. *Live was homogeneously dense liver by CT on 09/23/20. See Rad. report. MRI Abdomen: [facility] [place] [facility] Final Radiology Report Call: [phone] assistance Online chat: [email or web address] Name: WOLF TREJO Age: 45Years F Date: 12/23/2020 SSN: -- : [id number] Study: MR ABDOMEN WO CONT Requesting Physician: SALIMA CAMARENA Images: [id number] Addl Studies: Provided Clinical History: abnormal liver on CT, splenomegaly Contrast: Without Contrast Medium: Contrast Amount: Contrast Method: Page 1 of 2 PROCEDURE INFORMATION: Exam: MR Abdomen Without Contrast; Liver Exam date and time: 12/23/2020 1:24 PM Age: 45 years old Clinical indication: Pain and abnormal findings; Abnormal radiologic finding of the abdomen; Radiologic exam and body structure: CT abdomen; Abdominal pain; Additional info: Abnormal liver on CT, splenomegaly TECHNIQUE: Imaging protocol: MR Abdomen without contrast. Exam focused on the liver. COMPARISON: CT Abdomen Pelvis wo Cont 12/23/2020 12:10 PM FINDINGS: Liver: Multiple masses scattered throughout the liver. The masses correspond to the abnormal density on CT. Masses measure up to 3.0 cm. Masses are mildly T1 hypointense and T2 hyperintense at the periphery. There is diffuse fatty infiltration throughout the liver. The liver is enlarged, measuring 22.9 cm in length. Gallbladder and bile ducts: Normal gallbladder. No biliary ductal dilatation. Pancreas: Normal. Spleen: Enlarged, measuring 15.8 cm in length. No acute changes or focal lesions. Kidneys and ureters: Normal kidneys. Visualized ureters are unremarkable. Intraperitoneal space: No free fluid. IMPRESSION: Multiple masses scattered throughout the liver are concerning for neoplasm. This may represent a primary neoplasm of the liver with intra-organ metastases or metastasis from a remote primary. Thank you for allowing us to participate in the care of your patient. WOLF TREJO | Final Radiology Report CONFIDENTIALITY STATEMENT This report is intended only for use by the referring physician, and only in accordance with law. If you received this in error, call [phone]. Page 2 of 2 Dictated and Authenticated by: Ry Salgado MD 12/23/2020 2:14 PM Central Time ([place] & [place] - Re-Assessments/Exams Free Text/Narrative Re-Assessment/Exam: 12/23/20 15:11 I contacted the pt's PCP at [facility] to ensure f/u and prompt evaluation of the pt's suspicious liver lesions. Departure - Departure Time of Disposition: 15:12 Disposition: Home, Self-Care 01 Condition: Fair Clinical Impression: Pyelonephritis, Mass of multiple sites of liver, Hepatomegaly, Splenomegaly - Discharge Information *PRESCRIPTION DRUG MONITORING PROGRAM REVIEWED*: Not Applicable *COPY OF PRESCRIPTION DRUG MONITORING REPORT IN PATIENT ELEANOR: Not Applicable Instructions: Pyelonephritis, Adult, Hepatomegaly, [id number] Forms: ED Department Discharge Additional Instructions: Rx: Levaquin 500mg Drink plenty of water. Follow up with your primary doctor at [facility] in [place] at the first available appointment for further evaluation of the liver masses, and referral to a specialist. Sepsis Event Note (ED) - Evaluation Sepsis Screening Result: Possible Severe Sepsis Risk - Focused Exam Vital Signs: Vital Signs Temp Pulse Resp BP Pulse Ox 12/23/20 09:48 96.5 F L 128 H 18 90/73 99 - My Orders Last 24 Hours: My Active Orders 12/23/20 10:05 Sodium Chloride 0.9% [Saline Flush] 10 ml FLUSH ASDIRECTED PRN Blood Culture x2 Reflex Set [OM.PC] Stat 12/23/20 10:06 Peripheral IV Care [RC] . DIRECTED Peripheral IV Insertion Adult [OM.PC] Stat 12/23/20 10:15 CULTURE BLOOD [BC] Stat 12/23/20 10:19 CULTURE BLOOD [BC] Stat 12/23/20 11:25 CULTURE URINE [RM] Stat - Assessment/Plan Last 24 Hours: My Active Orders 12/23/20 10:05 Sodium Chloride 0.9% [Saline Flush] 10 ml FLUSH ASDIRECTED PRN Blood Culture x2 Reflex Set [OM.PC] Stat 12/23/20 10:06 Peripheral IV Care [RC] . DIRECTED Peripheral IV Insertion Adult [OM.PC] Stat 12/23/20 10:15 CULTURE BLOOD [BC] Stat 12/23/20 10:19 CULTURE BLOOD [BC] Stat 12/23/20 11:25 CULTURE URINE [RM] Stat
[2020-12-23] MEDS ORDERED: HYDROmorphone 0.5 MG/0.5 ML Syringe IVPUSH ONE ×2 (10:07→11:36)
[2020-12-23] MEDS ORDERED: Sodium Chloride 0.9% 1,000 ML IV ONE (10:07)
[2020-12-23] MEDS ORDERED: Ondansetron 4 MG/2 ML SDV IV ONE (10:07)
[2020-12-23] MEDS: Sodium Chloride 0.9% 10 ML Syringe FLUSH PRN ×3 (10:30→13:26)
[2020-12-23 10:45] LABS: ANION GAP 16.2 mEq/L (7-13); CHLORIDE,CL 95 mmol/L (98-107); SODIUM,NA 135 mmol/L (136-145)
[2020-12-23] MEDS ORDERED: Levofloxacin/Dextrose 5%-Water 500 MG in Premix Bag 1 BAG IV ONE (12:01)
[2020-12-23] MEDS ORDERED: metroNIDAZOLE 250 MG Tab PO ONE (12:37)
--- NOTE | 2020-12-23 13:08 | CT ---
EXAMINATION: Abdomen Pelvis wo Cont SEX: Female AGE: 45 years CLINICAL HISTORY: 46-year-old hypertensive 231 pound diabetic female smoker with right flank pain and hematuria. Rule out kidney stones. Patient reported on 23 September 2020 exam to have "hepatic steatosis; hepatosplenomegaly; and via (biliary intervention). Hysterectomy. Cholecystectomy. Scan technique: Volume acquisition of data obtained on emergency basis without oral or IV contrast (renal stone study) while patient was lying supine on the Siemens multislice scanner [place], [place]. All data archived in the PACS system for storage, reformatting axial/sagittal/coronal planes and study. Interpretation: 1. Hepatosplenomegaly and mild fatty infiltration inhomogeneously dense liver. Note: Liver homogeneously dense on 23 September 2020. Suggest interval change and recommend hepatic sonogram or CT imaging with contrast. 2. Surgically absent gallbladder. No abnormal dilatation of the intra or extrahepatic biliary ducts. Pancreas unremarkable. 3., [place]iber aortoiliac vessels. No aneurysm or dissection. Hypertrophic spondylosis lower T-L spine. 4. Normal reniform size, axis and configuration. Minimal "stranding". No cystic or solid renal cortical mass lesion. No nephrolithiasis or signs of obstructive uropathy i.e. no pyelocaliectasis/ureterectasis. Punctate calcifications (phleboliths) right pelvis unchanged since CT exam 23 September 2020 (coronal slices #80/82 on the right; and #75 on the left). 5. No new abdominal or pelvic mass lesion, mesenteric or retroperitoneal lymphadenopathy, inflammatory "dirty" peritoneal fat, signs of mechanical bowel obstruction, ascites or free intraperitoneal air. Normal terminal ileum. 6. Lung bases clear. Normal cardiac silhouette. No pericardial or pleural effusions. 8. Surgically absent uterus/ovaries. CONCLUSION: No sign of urolithiasis or obstructive uropathy. Suspicious appearance liver (see #1 above). Cholecystectomy. Hysterectomy. Hepatosplenomegaly.
[2020-12-23] MEDS ORDERED: LORazepam 2 MG/ML SDV IVPUSH ONE (13:11)
--- NOTE | 2020-12-23 14:14 | MR ---
PROCEDURE INFORMATION: Exam: MR Abdomen Without Contrast; Liver Exam date and time: 12/23/2020 1:24 PM Age: 45 years old Clinical indication: Pain and abnormal findings; Abnormal radiologic finding of the abdomen; Radiologic exam and body structure: CT abdomen; Abdominal pain; Additional info: Abnormal liver on CT, splenomegaly TECHNIQUE: Imaging protocol: MR Abdomen without contrast. Exam focused on the liver. COMPARISON: CT Abdomen Pelvis wo Cont 12/23/2020 12:10 PM FINDINGS: Liver: Multiple masses scattered throughout the liver. The masses correspond to the abnormal density on CT. Masses measure up to 3.0 cm. Masses are mildly T1 hypointense and T2 hyperintense at the periphery. There is diffuse fatty infiltration throughout the liver. The liver is enlarged, measuring 22.9 cm in length. Gallbladder and bile ducts: Normal gallbladder. No biliary ductal dilatation. Pancreas: Normal. Spleen: Enlarged, measuring 15.8 cm in length. No acute changes or focal lesions. Kidneys and ureters: Normal kidneys. Visualized ureters are unremarkable. Intraperitoneal space: No free fluid. IMPRESSION: Multiple masses scattered throughout the liver are concerning for neoplasm. This may represent a primary neoplasm of the liver with intra-organ metastases or metastasis from a remote primary.
== END 2020-12-23 15:27 | disposition home or self-care (01) ==
LOC: DL.ED 09:37
DX: N12 Tubulo-interstitial nephritis, not specified as acute or chronic (principal); R16.0 Hepatomegaly, not elsewhere classified; R16.1 Splenomegaly, not elsewhere classified; E11.21 Type 2 diabetes mellitus with diabetic nephropathy; E11.42 Type 2 diabetes mellitus with diabetic polyneuropathy; E66.9 Obesity, unspecified; Z68.35 Body mass index [BMI] 35.0-35.9, adult; Z91.030 Bee allergy status; Z88.8 Allergy status to other drugs, medicaments and biological substances; Z88.0 Allergy status to penicillin; Z79.4 Long term (current) use of insulin; Z79.899 Other long term (current) drug therapy
CPT/HCPCS: 36415; 74176; 74181; 80053; 81001; 82150; 83605; 83615; 83690; 85025; 87040; 87086; 87088; 87186; 96365; 96375; 96376; 99284; A9270; J1170; J1956; J2060; J2405; J7030

== ENCOUNTER 2021-01-31 21:26 | Emergency (ER) | payer MEDICARE, MEDICAID ==
[2021-01-31 21:43] VITALS: BP 116/77; PULSE 120
--- NOTE | 2021-01-31 22:21 | EDM.PDOC ---
ED HPI GENERAL MEDICAL PROBLEM - General Chief Complaint: Skin Complaint Stated Complaint: HIVES BY PICK LINE Time Seen by Provider: 01/31/21 22:10 Source of Information: Reports: Patient History Limitations: Reports: No Limitations - History of Present Illness INITIAL COMMENTS - FREE TEXT/NARRATIVE: This 45 yo female patient repots to the ED due to swelling around her PICC line and hives running up her left arm and left chest. The patient reports she is being treated by infectious diseases through [facility] in [place]. The patient reports she had her line flushed today and the nurse was having difficulties flushing the line. The patient reports she did hook herself up to her Vanco today at 1300. The patient reports her Vanco took over 2 hours to infuse when it normally takes about 1 hour. The patient reports she was showering this evening when she discovered the swelling and rash. Onset: Today Duration: Minutes:, Constant Location: Reports: Upper Extremity, Left Quality: Reports: Ache, Dull Severity: Moderate Improves with: Reports: None Worsens with: Reports: None Context: Reports: Other Associated Symptoms: Reports: No Other Symptoms Left Arm Pain Score (Numeric/FACES): 6 - Related Data Allergies Allergy/AdvReac Type Severity Reaction Status Date / Time bee venom protein (honey bee) Allergy Airway Verified 01/28/21 15:31 Tightness diphenhydramine HCl Allergy Anxiety Verified 01/28/21 15:31 [From Benadryl] penicillin Allergy Airway Verified 01/28/21 15:31 Tightness Home Meds: Home Meds Cyclobenzaprine [Flexeril] 10 mg PO Q8H PRN 12/19/16 [History] Insulin Aspart [NovoLOG] 30 units SQ TIDMEALS 07/28/18 [History] traZODone HCl [Trazodone HCl] 50 mg PO BEDTIME 07/28/18 [History] Insulin Degludec [Tresiba Flextouch U-100] 60 units SQ BID 09/10/18 [History] Gabapentin [Neurontin] 600 mg PO TID 05/02/20 [History] Hydrocodone/Acetaminophen [Hydrocodone-Acetamin 10-325 mg] 1 each PO TID 07/05/20 [History] oxyCODONE 5 mg PO Q4H PRN 11/02/20 [History] Past Medical History - Past Health History Medical/Surgical History: Denies Medical/Surgical History HEENT History: Reports: Other (See Below) Other HEENT History: astygmatism Cardiovascular History: Reports: None Respiratory History: Reports: Bronchitis, Recurrent Gastrointestinal History: Reports: Cholelithiasis Other Gastrointestinal History: liver abscess x5 Genitourinary History: Reports: Diabetic Nephropathy BIT BENDER History: Reports: Endometriosis, Other BIT BENDER History: 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 Patient states she had a hysterectomy Musculoskeletal History: Reports: Fibromyalgia Neurological History: Reports: Migraines, Neuropathy, Diabetic, Neuropathy, Peripheral, Vertigo Psychiatric History: Reports: Anxiety, Depression, Panic Attack Endocrine/Metabolic History: Reports: Diabetes, Type II, IDDM, Obesity/BMI 30+ Other Endocrine/Metabolic History: Is on UV insulin bid. does not know the exact name. 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 hydroitis supposrtive tibia - Infectious Disease History Infectious Disease History: Reports: MRSA - Past Surgical History Head Surgeries/Procedures: Reports: None HEENT Surgical History: Reports: None Respiratory Surgical History: Reports: None GI Surgical History: Reports: Cholecystectomy Female Surgical History: Reports: Hysterectomy, Other (See Below) Other Female Surgeries/Procedures: Tumor to rt. breast. Endocrine Surgical History: Reports: None Musculoskeletal Surgical History: Reports: None Social & Family History - Family History Family Medical History: No Pertinent Family History Cardiac: Reports: Hypertension Other Cardiac Family History: Mother Respiratory: Reports: COPD Other Respiratory Family Hisory: Mother OBGYN: Reports: Endometriosis Other OBGYN Family History: Mother Endocrine/Metabolic: Reports: Diabetes, type II Other Endocrine/Metabolic Family History: mother - Tobacco Use Tobacco Use Status *Q: Current Every Day Tobacco User Years of Tobacco use: 35 Packs/Tins Daily: 0.5 Second Hand Smoke Exposure: Yes - Caffeine Use Caffeine Use: Reports: Coffee Caffeine Use Comment: Her statesment " I don't know" - Recreational Drug Use Recreational Drug Use: No - Sexual History Sexual History: Reports: Sexually Active - Living Situation & Occupation Living situation: Reports: , with Family Occupation: Unemployed ED ROS GENERAL - Review of Systems Review Of Systems: Comprehensive ROS is negative, except as noted in HPI. ED EXAM, SKIN/RASH Exam: See Below Exam Limited By: No Limitations General Appearance: Alert, WD/WN, Mild Distress, Obese Eye Exam: Bilateral Eye: EOMI, Normal Inspection, PERRL Ears: Normal External Exam, Normal Canal, Hearing Grossly Normal, Normal TMs Nose: Normal Inspection, Normal Mucosa, No Blood Throat/Mouth: Normal Inspection, Normal Lips, Normal Teeth, Normal Gums, Normal Oropharynx, Normal Voice, No Airway Compromise Head: Atraumatic, Normocephalic Neck: Normal Inspection, Supple, Non-Tender, Full Range of Motion Respiratory/Chest: No Respiratory Distress, Lungs Clear, Normal Breath Sounds, No Accessory Muscle Use, Chest Non-Tender Cardiovascular: Normal Peripheral Pulses, Regular Rate, Rhythm, No Edema, No Gallop, No JVD, No Murmur, No Rub GI/Abdominal: Normal Bowel Sounds, Soft, Non-Tender, No Organomegaly, No Distention, No Abnormal Bruit, No Mass (Female) Exam: Deferred Rectal (Female) Exam: Deferred Back Exam: Normal Inspection, Full Range of Motion, NT Extremities: Limited Range of Motion (Left arm due to pain with movement. ), Other (The patient has swelling of the area around the PICC line with hives extending up her left arm into the left chest.) Neurological: Alert, Oriented, CN II-XII Intact, Normal Cognition, Normal Gait, Normal Reflexes, No Motor/Sensory Deficits Psychiatric: Normal Affect, Normal Mood Skin: Warm, Dry, Intact Location, Skin: Upper Extremity, Left Characteristics: Other (hives) Associated features: Tenderness, Swelling (left arm around PICC line) Lymphatic: No Adenopathy Course - Vital Signs Last Recorded V/S: Last Vital Signs Temp 36.9 C 01/31/21 21:34 Pulse 120 H 01/31/21 21:34 Resp 18 01/31/21 21:34 BP 116/77 01/31/21 21:34 Pulse Ox 98 01/31/21 21:34 - Orders/Labs/Meds Orders: Active Orders 24 hr Category Date Time Status Vancomycin 1 gm Med 01/31/21 23:14 Ordered Sodium Chloride 0.9% [Normal Saline (AdvBag)] 250 ml IV ONETIME Medication Orders Vancomycin HCl 1 gm/ Sodium (Chloride) 250 mls @ 167 mls/hr IV ONETIME ONE Stop: 02/01/21 00:43 Labs: Laboratory Tests 01/31/21 01/31/21 Range/Units 22:47 22:47 WBC 8.7 (5.0-10.0) 10^3/uL RBC 4.96 (4.2-5.4) 10^6/uL Hgb 12.2 (12.0-16.0) g/dL Hct 38.2 (37.0-47.0) % MCV 77.0 L (80-100) fL MCH 24.6 L (27.0-34.0) pg MCHC 31.9 L (33.0-35.0) g/dL Plt Count 386 (150-450) 10^3/uL Neut % (Auto) 71.1 (42.2-75.2) % Lymph % (Auto) 18.8 L (20.5-50.1) % Coffey % (Auto) 7.4 (2-8) % Eos % (Auto) 2.6 (1.0-3.0) % Baso % (Auto) 0.1 (0.0-1.0) % Sodium 133 L (136-145) mmol/L Potassium 3.5 (3.5-5.1) mmol/L Chloride 97 L (98-107) mmol/L Carbon Dioxide 28 (21-32) mmol/L Anion Gap 11.5 (7-13) mEq/L BUN 8 (7-18) mg/dL Creatinine 0.92 (0.55-1.02) mg/dL Est Cr Clr Drug Dosing 76.26 mL/min Estimated GFR (MDRD) > 60 BUN/Creatinine Ratio 8.7 (No establ ref range) Glucose 333 H (70-99) mg/dL Calcium 8.7 (8.5-10.1) mg/dL Total Bilirubin 0.3 (0.2-1.0) mg/dL AST 24 (15-37) U/L ALT 40 (14-59) U/L Alkaline Phosphatase 370 H (46-116) U/L Total Protein 8.5 H (6.4-8.2) g/dL Albumin 2.6 L (3.4-5.0) g/dL Globulin 5.9 Albumin/Globulin Ratio 0.44 Meds: Medications Generic Name Dose Route Start Last Admin Trade Name Freq PRN Reason Stop Dose Admin Vancomycin HCl 1 gm/ Sodium 250 mls @ 167 mls/hr 01/31/21 23:14 Chloride IV 02/01/21 00:43 ONETIME ONE Discontinued Medications Generic Name Dose Route Start Last Admin Trade Name Freq PRN Reason Stop Dose Admin Hydromorphone HCl 0.5 mg 01/31/21 23:28 Hydromorphone 0.5 Mg/0.5 Ml Syringe IVPUSH 01/31/21 23:29 ONETIME ONE - Re-Assessments/Exams Free Text/Narrative Re-Assessment/Exam: 01/31/21 22:[address] Nichols (ED provider at [facility]). Dr Nichols advised to have a different peripheral IV started to give her the Vanco. The patient does need to have her PICC line evaluated sometime soon. 01/31/21 23:34 Further discussion with the patient resulted in the patient agreeing to be transferred by ambulance tonight due to the Vanco dosing being now than again in the morning. Vascular services are not available at our facility. Departure - Departure Time of Disposition: 23:36 Disposition: DC/Tfer to Acute Hospital 02 Condition: Fair Clinical Impression: Abdominal infection PICC line infiltration Qualifiers: Encounter type: initial encounter Qualified Code(s): T82.898A - Other specified complication of vascular prosthetic devices, implants and grafts, initial encounter - Discharge Information *PRESCRIPTION DRUG MONITORING PROGRAM REVIEWED*: Not Applicable Forms: Interfacility Transfer EMTALA Care Plan Goals: Discussed the patient's history, examination and treatments with Dr. Nichols ([facility] ED Provider). Dr. Nichols accepted the patient for continued evaluation and further management at [facility]. The patient will be transported by [facility]. Sepsis Event Note (ED) - Evaluation Sepsis Screening Result: No Definite Risk - Focused Exam Vital Signs: Vital Signs Temp Pulse Resp BP Pulse Ox 01/31/21 21:34 36.9 C 120 H 18 116/77 98 - My Orders Last 24 Hours: My Active Orders 01/31/21 23:14 Vancomycin 1 gm Sodium Chloride 0.9% [Normal Saline (AdvBag)] 250 ml IV ONETIME - Assessment/Plan Last 24 Hours: My Active Orders 01/31/21 23:14 Vancomycin 1 gm Sodium Chloride 0.9% [Normal Saline (AdvBag)] 250 ml IV ONETIME
[2021-01-31 23:13] LABS: ANION GAP 11.5 mEq/L (7-13); CHLORIDE,CL 97 mmol/L (98-107); SODIUM,NA 133 mmol/L (136-145)
[2021-01-31] MEDS ORDERED: HYDROmorphone 0.5 MG/0.5 ML Syringe IVPUSH ONE (23:28)
== END 2021-02-01 00:04 ==
LOC: DL.ED 21:26
DX: T82.898A Other specified complication of vascular prosthetic devices, implants and grafts, initial encounter (principal); L08.9 Local infection of the skin and subcutaneous tissue, unspecified; E11.21 Type 2 diabetes mellitus with diabetic nephropathy; E11.42 Type 2 diabetes mellitus with diabetic polyneuropathy; E66.9 Obesity, unspecified; Z68.35 Body mass index [BMI] 35.0-35.9, adult; Z91.030 Bee allergy status; Z88.8 Allergy status to other drugs, medicaments and biological substances; Z88.0 Allergy status to penicillin; Z79.4 Long term (current) use of insulin; Z79.899 Other long term (current) drug therapy
CPT/HCPCS: 36415; 80053; 85025; 96365; 96375; 99284; 99284-25; J1170; J3370; J7050

== ENCOUNTER 2021-03-22 02:21 | Emergency (ER) | payer MEDICARE, MEDICAID ==
[2021-03-22 02:39] VITALS: BP 124/67; PULSE 127
[2021-03-22] MEDS ORDERED: Ciprofloxacin 500 MG Tab PO ONE (03:40)
[2021-03-22] MEDS ORDERED: LORazepam 0.5 MG Tab PO ONE (03:40)
[2021-03-22] MEDS ORDERED: Morphine 2 MG/ML SYRINGE IM ONE (03:43)
[2021-03-22 03:49] LABS: ANION GAP 13.5 mEq/L (7-13)
[2021-03-22] MEDS ORDERED: Glucagon,Human Recombinant 1 MG Vial IM PRN (03:55)
[2021-03-22] MEDS ORDERED: Insulin Regular, Human 100 Units/ML 3 ML Vial IM ONE (03:55)
[2021-03-22] MEDS ORDERED: 50% Dextrose in Water 50 ML Syringe IV PRN (03:55)
--- NOTE | 2021-03-22 04:06 | EDM.PDOC ---
ED HPI GENERAL MEDICAL PROBLEM - General Chief Complaint: Abdominal Pain Stated Complaint: DIAGNOSED LIVER PROBLEMS, LIVER PAIN Time Seen by Provider: 03/22/21 02:35 Source of Information: Reports: Patient History Limitations: Reports: No Limitations - History of Present Illness INITIAL COMMENTS - FREE TEXT/NARRATIVE: ED with c/o lower abdominal pain and liver hurting. Urinary frequency and burning. Hx UTI in past. Referral set up in [place] to follow mass on liver. Last took oxy at 10pm. No fever or chills. No falnk pain. - Related Data Allergies Allergy/AdvReac Type Severity Reaction Status Date / Time bee venom protein (honey bee) Allergy Airway Verified 03/22/21 02:40 Tightness diphenhydramine HCl Allergy Anxiety Verified 03/22/21 02:40 [From Benadryl] penicillin Allergy Airway Verified 03/22/21 02:40 Tightness Home Meds: Home Meds Cyclobenzaprine [Flexeril] 10 mg PO Q8H PRN 12/19/16 [History] Insulin Aspart [NovoLOG] 30 units SQ TIDMEALS 07/28/18 [History] traZODone HCl [Trazodone HCl] 50 mg PO BEDTIME 07/28/18 [History] Gabapentin [Neurontin] 600 mg PO TID 05/02/20 [History] oxyCODONE 10 mg PO 6XDAY PRN 11/02/20 [History] Exenatide Microspheres [Bydureon] 0.85 ml SUBCUT WEEKLY 03/22/21 [History] Furosemide 20 mg PO DAILY 03/22/21 [History] Insulin Degludec [Tresiba] 82 units SUBCUT DAILY 03/22/21 [History] Past Medical History - Past Health History Medical/Surgical History: Denies Medical/Surgical History HEENT History: Reports: Other (See Below) Other HEENT History: astygmatism Cardiovascular History: Reports: None Respiratory History: Reports: Bronchitis, Recurrent Gastrointestinal History: Reports: Cholelithiasis Other Gastrointestinal History: liver abscess x5 Genitourinary History: Reports: Diabetic Nephropathy 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 Patient states she had a hysterectomy Musculoskeletal History: Reports: Fibromyalgia Neurological History: Reports: Migraines, Neuropathy, Diabetic, Neuropathy, Peripheral, Vertigo Psychiatric History: Reports: Anxiety, Depression, Panic Attack Endocrine/Metabolic History: Reports: Diabetes, Type II, IDDM, Obesity/BMI 30+ Other Endocrine/Metabolic History: Is on UV insulin bid. does not know the exact name. 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 hydroitis supposrtive tibia - Infectious Disease History Infectious Disease History: Reports: MRSA - Past Surgical History Head Surgeries/Procedures: Reports: None HEENT Surgical History: Reports: None Respiratory Surgical History: Reports: None GI Surgical History: Reports: Cholecystectomy Female Surgical History: Reports: Hysterectomy, Other (See Below) Other Female Surgeries/Procedures: Tumor to rt. breast. Endocrine Surgical History: Reports: None Musculoskeletal Surgical History: Reports: None Social & Family History - Family History Family Medical History: No Pertinent Family History Cardiac: Reports: Hypertension Other Cardiac Family History: Mother Respiratory: Reports: COPD Other Respiratory Family Hisory: Mother OBGYN: Reports: Endometriosis Other OBGYN Family History: Mother Endocrine/Metabolic: Reports: Diabetes, type II Other Endocrine/Metabolic Family History: mother - Tobacco Use Tobacco Use Status *Q: Never Tobacco User - Caffeine Use Caffeine Use: Reports: Coffee Caffeine Use Comment: Her statesment " I don't know" - Recreational Drug Use Recreational Drug Use: No - Sexual History Sexual History: Reports: Sexually Active - Living Situation & Occupation Living situation: Reports: , with Family Occupation: Unemployed ED ROS GENERAL - Review of Systems Review Of Systems: Comprehensive ROS is negative, except as noted in HPI. ED EXAM, GI/ABD - Physical Exam Exam: See Below Exam Limited By: No Limitations General Appearance: Alert, Anxious, Moderate Distress Eyes: Bilateral: EOMI (no icterus) Ears: Normal External Exam Nose: Normal Inspection Throat/Mouth: Normal Oropharynx Head: Atraumatic, Normocephalic Neck: Normal Inspection Respiratory/Chest: No Respiratory Distress, Lungs Clear, Normal Breath Sounds Cardiovascular: Normal Peripheral Pulses, Regular Rate, Rhythm GI/Abdominal Exam: Normal Bowel Sounds, Soft, Tender (general lower) Back Exam: Normal Inspection, Full Range of Motion Extremities: Normal Inspection, Normal Range of Motion Neurological: Alert, Oriented, Normal Cognition Psychiatric: Anxious, Tearful Skin Exam: Warm, Dry, Intact, Normal Color Course - Vital Signs Last Recorded V/S: Last Vital Signs Temp 97.7 F 03/22/21 02:35 Pulse 127 H 03/22/21 02:35 Resp 16 03/22/21 02:35 BP 124/67 03/22/21 02:35 Pulse Ox 96 03/22/21 02:35 - Orders/Labs/Meds Orders: Active Orders 24 hr Category Date Time Status Blood Glucose Check, Bedside [RC] ONETIME Care 03/22/21 03:55 Active Blood Glucose Check, Bedside [] ONETIME Care 03/22/21 04:36 Ordered CULTURE BLOOD [BC] Stat Lab 03/22/21 03:05 Results CULTURE URINE [RM] Urgent Lab 03/22/21 02:49 Received Dextrose 50% in Water Med 03/22/21 03:55 Active 50 ml IV Q15M PRN Glucagon,Human Recombinant [GlucaGen] Med 03/22/21 03:55 Active 1 mg IM Q15M PRN Medication Orders Dextrose/Water (50% Dextrose In Water 50 Ml Syringe) 50 ml IV Q15M PRN PRN Reason: Hypoglycemia Glucagon (Glucagon,Human Recombinant 1 Mg Vial) 1 mg IM Q15M PRN PRN Reason: Hypoglycemia Labs: Laboratory Tests 03/22/21 03/22/21 03/22/21 Range/Units 02:49 02:49 03:05 WBC 10.4 H (5.0-10.0) 10^3/uL RBC 4.98 (4.2-5.4) 10^6/uL Hgb 12.0 (12.0-16.0) g/dL Hct 38.1 (37.0-47.0) % MCV 76.5 L (80-100) fL MCH 24.1 L (27.0-34.0) pg MCHC 31.5 L (33.0-35.0) g/dL Plt Count 328 (150-450) 10^3/uL Neut % (Auto) 72.0 (42.2-75.2) % Lymph % (Auto) 18.2 L (20.5-50.1) % Clark % (Auto) 6.2 (2-8) % Eos % (Auto) 3.4 H (1.0-3.0) % Baso % (Auto) 0.2 (0.0-1.0) % Sodium (136-145) mmol/L Potassium (3.5-5.1) mmol/L Chloride (98-107) mmol/L Carbon Dioxide (21-32) mmol/L Anion Gap (7-13) mEq/L BUN (7-18) mg/dL Creatinine (0.55-1.02) mg/dL Est Cr Clr Drug Dosing mL/min Estimated GFR (MDRD) BUN/Creatinine Ratio (No establ ref range) Glucose (70-99) mg/dL POC Glucose (70-99) mg/dL Lactic Acid (0.4-2.0) mmol/L Calcium (8.5-10.1) mg/dL Total Bilirubin (0.2-1.0) mg/dL AST (15-37) U/L ALT (14-59) U/L Alkaline Phosphatase (46-116) U/L Total Protein (6.4-8.2) g/dL Albumin (3.4-5.0) g/dL Globulin Albumin/Globulin Ratio Amylase (25-115) U/L Lipase (73-393) U/L Urine Color Jackson (YELLOW) Urine Appearance Cloudy (CLEAR) Urine pH 7.0 (5.0-9.0) Ur Specific [place] 1.015 (1.005-1.030) Urine Protein 100 H (NEGATIVE) Urine Glucose (UA) >=1000 H (NEGATIVE) Urine Ketones Negative (NEGATIVE) Urine Occult Blood Small H (NEGATIVE) Urine Nitrite Positive H (NEGATIVE) Urine Bilirubin Negative (NEGATIVE) Urine Urobilinogen 2.0 H (0.2-1.0) mg/dL Ur Leukocyte Esterase Small H (NEGATIVE) Urine RBC 0-5 /HPF Urine WBC Semi-packed H (0-5/HPF) /HPF Ur Epithelial Cells Moderate H (NOT SEEN) /HPF Urine Bacteria Many H (0-FEW/HPF) /HPF Urine Opiates Screen Negative (NEGATIVE) Ur Oxycodone Screen Positive H (NEGATIVE) Urine Methadone Screen Negative (NEGATIVE) Ur Barbiturates Screen Negative (NEGATIVE) U Tricyclic Antidepress Positive H (NEGATIVE) Ur Phencyclidine Scrn Negative (NEGATIVE) Ur Amphetamine Screen Negative (NEGATIVE) U Methamphetamines Scrn Negative (NEGATIVE) Urine MDMA Screen Negative (NEGATIVE) U Benzodiazepines Scrn Negative (NEGATIVE) Urine Cocaine Screen Negative (NEGATIVE) U Marijuana (THC) Screen Negative (NEGATIVE) Ketones 03/22/21 03/22/21 03/22/21 Range/Units 03:05 03:05 03:05 WBC (5.0-10.0) 10^3/uL RBC (4.2-5.4) 10^6/uL Hgb (12.0-16.0) g/dL Hct (37.0-47.0) % MCV (80-100) fL MCH (27.0-34.0) pg MCHC (33.0-35.0) g/dL Plt Count (150-450) 10^3/uL Neut % (Auto) (42.2-75.2) % Lymph % (Auto) (20.5-50.1) % Clark % (Auto) (2-8) % Eos % (Auto) (1.0-3.0) % Baso % (Auto) (0.0-1.0) % Sodium 131 L (136-145) mmol/L Potassium 4.5 (3.5-5.1) mmol/L Chloride 95 L (98-107) mmol/L Carbon Dioxide 27 (21-32) mmol/L Anion Gap 13.5 H (7-13) mEq/L BUN 17 (7-18) mg/dL Creatinine 1.24 H (0.55-1.02) mg/dL Est Cr Clr Drug Dosing 55.97 mL/min Estimated GFR (MDRD) 46 BUN/Creatinine Ratio 13.7 (No establ ref range) Glucose 487 H* (70-99) mg/dL POC Glucose (70-99) mg/dL Lactic Acid 1.3 (0.4-2.0) mmol/L Calcium 8.8 (8.5-10.1) mg/dL Total Bilirubin 0.3 (0.2-1.0) mg/dL AST 20 (15-37) U/L ALT 25 (14-59) U/L Alkaline Phosphatase 313 H (46-116) U/L Total Protein 8.2 (6.4-8.2) g/dL Albumin 2.5 L (3.4-5.0) g/dL Globulin 5.7 Albumin/Globulin Ratio 0.44 Amylase 31 (25-115) U/L Lipase 76 (73-393) U/L Urine Color (YELLOW) Urine Appearance (CLEAR) Urine pH (5.0-9.0) Ur Specific [place] (1.005-1.030) Urine Protein (NEGATIVE) Urine Glucose (UA) (NEGATIVE) Urine Ketones (NEGATIVE) Urine Occult Blood (NEGATIVE) Urine Nitrite (NEGATIVE) Urine Bilirubin (NEGATIVE) Urine Urobilinogen (0.2-1.0) mg/dL Ur Leukocyte Esterase (NEGATIVE) Urine RBC /HPF Urine WBC (0-5/HPF) /HPF Ur Epithelial Cells (NOT SEEN) /HPF Urine Bacteria (0-FEW/HPF) /HPF Urine Opiates Screen (NEGATIVE) Ur Oxycodone Screen (NEGATIVE) Urine Methadone Screen (NEGATIVE) Ur Barbiturates Screen (NEGATIVE) U Tricyclic Antidepress (NEGATIVE) Ur Phencyclidine Scrn (NEGATIVE) Ur Amphetamine Screen (NEGATIVE) U Methamphetamines Scrn (NEGATIVE) Urine MDMA Screen (NEGATIVE) U Benzodiazepines Scrn (NEGATIVE) Urine Cocaine Screen (NEGATIVE) U Marijuana (THC) Screen (NEGATIVE) Ketones Small-20 mg/dl 03/22/21 Range/Units 03:50 WBC (5.0-10.0) 10^3/uL RBC (4.2-5.4) 10^6/uL Hgb (12.0-16.0) g/dL Hct (37.0-47.0) % MCV (80-100) fL MCH (27.0-34.0) pg MCHC (33.0-35.0) g/dL Plt Count (150-450) 10^3/uL Neut % (Auto) (42.2-75.2) % Lymph % (Auto) (20.5-50.1) % Clark % (Auto) (2-8) % Eos % (Auto) (1.0-3.0) % Baso % (Auto) (0.0-1.0) % Sodium (136-145) mmol/L Potassium (3.5-5.1) mmol/L Chloride (98-107) mmol/L Carbon Dioxide (21-32) mmol/L Anion Gap (7-13) mEq/L BUN (7-18) mg/dL Creatinine (0.55-1.02) mg/dL Est Cr Clr Drug Dosing mL/min Estimated GFR (MDRD) BUN/Creatinine Ratio (No establ ref range) Glucose (70-99) mg/dL POC Glucose 461 H* (70-99) mg/dL Lactic Acid (0.4-2.0) mmol/L Calcium (8.5-10.1) mg/dL Total Bilirubin (0.2-1.0) mg/dL AST (15-37) U/L ALT (14-59) U/L Alkaline Phosphatase (46-116) U/L Total Protein (6.4-8.2) g/dL Albumin (3.4-5.0) g/dL Globulin Albumin/Globulin Ratio Amylase (25-115) U/L Lipase (73-393) U/L Urine Color (YELLOW) Urine Appearance (CLEAR) Urine pH (5.0-9.0) Ur Specific [place] (1.005-1.030) Urine Protein (NEGATIVE) Urine Glucose (UA) (NEGATIVE) Urine Ketones (NEGATIVE) Urine Occult Blood (NEGATIVE) Urine Nitrite (NEGATIVE) Urine Bilirubin (NEGATIVE) Urine Urobilinogen (0.2-1.0) mg/dL Ur Leukocyte Esterase (NEGATIVE) Urine RBC /HPF Urine WBC (0-5/HPF) /HPF Ur Epithelial Cells (NOT SEEN) /HPF Urine Bacteria (0-FEW/HPF) /HPF Urine Opiates Screen (NEGATIVE) Ur Oxycodone Screen (NEGATIVE) Urine Methadone Screen (NEGATIVE) Ur Barbiturates Screen (NEGATIVE) U Tricyclic Antidepress (NEGATIVE) Ur Phencyclidine Scrn (NEGATIVE) Ur Amphetamine Screen (NEGATIVE) U Methamphetamines Scrn (NEGATIVE) Urine MDMA Screen (NEGATIVE) U Benzodiazepines Scrn (NEGATIVE) Urine Cocaine Screen (NEGATIVE) U Marijuana (THC) Screen (NEGATIVE) Ketones Meds: Medications Generic Name Dose Route Start Last Admin Trade Name Freq PRN Reason Stop Dose Admin Dextrose/Water 50 ml 03/22/21 03:55 50% Dextrose In Water 50 Ml Syringe IV Q15M PRN Hypoglycemia Glucagon 1 mg 03/22/21 03:55 Glucagon,Human Recombinant 1 Mg Vial IM Q15M PRN Hypoglycemia Discontinued Medications Generic Name Dose Route Start Last Admin Trade Name Freq PRN Reason Stop Dose Admin Ciprofloxacin 500 mg 03/22/21 03:40 03/22/21 03:51 Ciprofloxacin 500 Mg Tab PO 03/22/21 03:41 500 mg ONETIME ONE Administration Insulin Human Regular 10 unit 03/22/21 03:55 03/22/21 04:04 Insulin Regular, Human 100 Units/Ml 3 Ml Vial IM 03/22/21 03:56 10 units ONETIME ONE Administration Lorazepam 0.5 mg 03/22/21 03:40 03/22/21 03:51 Lorazepam 0.5 Mg Tab PO 03/22/21 03:41 0.5 mg ONETIME ONE Administration Morphine Sulfate 2 mg 03/22/21 03:43 03/22/21 03:51 Morphine 2 Mg/Ml Syringe IM 03/22/21 03:44 2 mg ONETIME ONE Administration Departure - Departure Time of Disposition: 04:39 Disposition: Home, Self-Care 01 Condition: Good Clinical Impression: Hyperglycemia, Anxiety, Insulin dependent diabetes mellitus UTI (urinary tract infection) Qualifiers: Urinary tract infection type: acute cystitis Hematuria presence: with hematuria Qualified Code(s): N30.01 - Acute cystitis with hematuria - Discharge Information *PRESCRIPTION DRUG MONITORING PROGRAM REVIEWED*: No *COPY OF PRESCRIPTION DRUG MONITORING REPORT IN PATIENT ELEANOR: No Instructions: Urinary Tract Infection, Adult, [id number] Forms: ED Department Discharge Additional Instructions: cipro 500mg one twice daily for one week monitor blood sugars continue azo as needed clinic follow up later this week tylenol 500mg three times daily Sepsis Event Note (ED) - Evaluation Sepsis Screening Result: No Definite Risk - Focused Exam Vital Signs: Vital Signs Temp Pulse Resp BP Pulse Ox 03/22/21 02:35 97.7 F 127 H 16 124/67 96 - My Orders Last 24 Hours: My Active Orders 03/22/21 02:49 CULTURE URINE [RM] Urgent 03/22/21 03:05 CULTURE BLOOD [BC] Stat 03/22/21 03:55 Blood Glucose Check, Bedside [RC] ONETIME Dextrose 50% in Water 50 ml IV Q15M PRN Glucagon,Human Recombinant [GlucaGen] 1 mg IM Q15M PRN 03/22/21 04:36 Blood Glucose Check, Bedside [RC] ONETIME - Assessment/Plan Last 24 Hours: My Active Orders 03/22/21 02:49 CULTURE URINE [RM] Urgent 03/22/21 03:05 CULTURE BLOOD [BC] Stat 03/22/21 03:55 Blood Glucose Check, Bedside [RC] ONETIME Dextrose 50% in Water 50 ml IV Q15M PRN Glucagon,Human Recombinant [GlucaGen] 1 mg IM Q15M PRN 03/22/21 04:36 Blood Glucose Check, Bedside [RC] ONETIME
== END 2021-03-22 04:52 | disposition home or self-care (01) ==
LOC: DL.ED 02:21
DX: N30.01 Acute cystitis with hematuria (principal); F41.9 Anxiety disorder, unspecified; E11.65 Type 2 diabetes mellitus with hyperglycemia; E11.21 Type 2 diabetes mellitus with diabetic nephropathy; E66.9 Obesity, unspecified; E11.42 Type 2 diabetes mellitus with diabetic polyneuropathy; Z68.33 Body mass index [BMI] 33.0-33.9, adult; Z91.030 Bee allergy status; Z88.8 Allergy status to other drugs, medicaments and biological substances; Z88.0 Allergy status to penicillin; Z79.4 Long term (current) use of insulin; Z79.899 Other long term (current) drug therapy
CPT/HCPCS: 36415; 80053; 80305-QW; 81001; 82009; 82150; 82947; 83605; 83690; 85025; 87040; 87086; 87088; 87186; 96372; 99283; 99284; A9270-GY; J1815-GY; J2270

== ENCOUNTER 2021-06-10 13:20 | Emergency (ER) | payer MEDICARE, MEDICAID ==
[2021-06-10 15:02] LABS: ANION GAP 12.2 mEq/L (7-13); CHLORIDE,CL 99 mmol/L (98-107); SODIUM,NA 135 mmol/L (136-145)
--- NOTE | 2021-06-10 15:02 | EDM.PDOC ---
ED HPI GENERAL MEDICAL PROBLEM - General Chief Complaint: General Stated Complaint: DR TOLD HER TO COME TO [facility] Time Seen by Provider: 06/10/21 14:45 Source of Information: Reports: Patient History Limitations: Reports: No Limitations - History of Present Illness INITIAL COMMENTS - FREE TEXT/NARRATIVE: This 46 yo female patient reports to the ED with increased abdominal pain and generalized weakness. 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 The patient reports she does take Oxycodone 8 times per day due to pain. The patient reports she talked to her provider in [place] today and was advised to come to the ED for evaluation. The patient reports her current pain is an 8/10 (would be comfortable at a 4). The patient did take her Oxycodone about 3 hours ago with some pain relief. The patient reports her hemoglobin was 11 on 05/30/21. Onset: Unknown/Unsure Duration: Day(s):, Constant, Getting Worse Location: Reports: Abdomen Quality: Reports: Ache Severity: Severe Improves with: Reports: None Worsens with: Reports: None Context: Reports: Other Associated Symptoms: Reports: No Other Symptoms Abdominal Pain Score (Numeric/FACES): 8 - Related Data Allergies Allergy/AdvReac Type Severity Reaction Status Date / Time bee venom protein (honey bee) Allergy Airway Verified 06/10/21 13:51 Tightness diphenhydramine HCl Allergy Anxiety Verified 06/10/21 13:51 [From Benadryl] penicillin Allergy Airway Verified 06/10/21 13:51 Tightness Home Meds: Home Meds Cyclobenzaprine [Flexeril] 10 mg PO Q8H PRN 12/19/16 [History] Insulin Aspart [NovoLOG] 30 units SQ TIDMEALS 07/28/18 [History] traZODone HCl [Trazodone HCl] 50 mg PO BEDTIME 07/28/18 [History] Gabapentin [Neurontin] 600 mg PO TID 05/02/20 [History] oxyCODONE 10 mg PO 6XDAY PRN 11/02/20 [History] Exenatide Microspheres [Bydureon] 0.85 ml SUBCUT WEEKLY 03/22/21 [History] Insulin Degludec [Tresiba] 82 units SUBCUT DAILY 03/22/21 [History] Past Medical History - Past Health History Medical/Surgical History: Denies Medical/Surgical History HEENT History: Reports: Other (See Below) Other HEENT History: astygmatism Cardiovascular History: Reports: None Respiratory History: Reports: Bronchitis, Recurrent Gastrointestinal History: Reports: Cholelithiasis Other Gastrointestinal History: liver abscess x5, Fibrosis stage 3-4 Genitourinary History: Reports: Diabetic Nephropathy ORDER PACKER History: Reports: Endometriosis, Other ORDER PACKER History: 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 Patient states she had a hysterectomy Musculoskeletal History: Reports: Fibromyalgia Neurological History: Reports: Migraines, Neuropathy, Diabetic, Neuropathy, Peripheral, Vertigo Psychiatric History: Reports: Anxiety, Depression, Panic Attack Endocrine/Metabolic History: Reports: Diabetes, Type II, IDDM, Obesity/BMI 30+ Other Endocrine/Metabolic History: Is on UV insulin bid. does not know the exact name. 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 hydroitis supposrtive tibia - Infectious Disease History Infectious Disease History: Reports: MRSA - Past Surgical History Head Surgeries/Procedures: Reports: None HEENT Surgical History: Reports: None Respiratory Surgical History: Reports: None GI Surgical History: Reports: Cholecystectomy Female Surgical History: Reports: Hysterectomy, Other (See Below) Other Female Surgeries/Procedures: Tumor to rt. breast. Endocrine Surgical History: Reports: None Musculoskeletal Surgical History: Reports: None Social & Family History - Family History Family Medical History: No Pertinent Family History Cardiac: Reports: Hypertension Other Cardiac Family History: Mother Respiratory: Reports: COPD Other Respiratory Family Hisory: Mother OBGYN: Reports: Endometriosis Other OBGYN Family History: Mother Endocrine/Metabolic: Reports: Diabetes, type II Other Endocrine/Metabolic Family History: mother - Tobacco Use Tobacco Use Status *Q: Current Every Day Tobacco User Years of Tobacco use: 20 Packs/Tins Daily: 1 - Caffeine Use Caffeine Use: Reports: Coffee, Soda Caffeine Use Comment: Her statesment " I don't know" - Recreational Drug Use Recreational Drug Use: No - Sexual History Sexual History: Reports: Sexually Active - Living Situation & Occupation Living situation: Reports: , with Family Occupation: Unemployed ED ROS GENERAL - Review of Systems Review Of Systems: Comprehensive ROS is negative, except as noted in HPI. ED EXAM, GENERAL - Physical Exam Exam: See Below Exam Limited By: No Limitations General Appearance: Alert, WD/WN, Moderate Distress Eye Exam: Bilateral Eye: Normal Inspection, PERRL Ears: Normal External Exam, Normal Canal, Hearing Grossly Normal, Normal TMs Nose: Normal Inspection, Normal Mucosa, No Blood Throat/Mouth: Normal Inspection, Normal Lips, Normal Teeth, Normal Gums, Normal Oropharynx, Normal Voice, No Airway Compromise Head: Atraumatic, Normocephalic Neck: Normal Inspection, Supple, Non-Tender, Full Range of Motion Respiratory/Chest: No Respiratory Distress, Lungs Clear, Normal Breath Sounds, No Accessory Muscle Use, Chest Non-Tender Cardiovascular: Normal Peripheral Pulses, Regular Rate, Rhythm, No Edema, No Gallop, No JVD, No Murmur, No Rub GI/Abdominal: Normal Bowel Sounds, Soft, No Organomegaly, No Distention, No Abnormal Bruit, No Mass, Pelvis Stable, Tender (right side with palpation) (Female) Exam: Deferred Rectal (Female) Exam: Deferred Back Exam: Normal Inspection, Full Range of Motion, NT Extremities: Normal Inspection, Normal Range of Motion, Non-Tender, Normal Capillary Refill, No Pedal Edema Neurological: Alert, Oriented, CN II-XII Intact, Normal Cognition, Normal Gait, Normal Reflexes, No Motor/Sensory Deficits Psychiatric: Normal Affect, Normal Mood Skin Exam: Warm, Dry, Intact, Normal Color, No Rash Lymphatic: No Adenopathy Course - Vital Signs Last Recorded V/S: Last Vital Signs Temp 96.6 F L 06/10/21 13:49 Pulse 105 H 06/10/21 13:49 Resp 18 06/10/21 13:49 BP 122/74 06/10/21 13:49 Pulse Ox 99 06/10/21 13:49 - Orders/Labs/Meds Orders: Active Orders 24 hr Category Date Time Status CULTURE BLOOD [BC] Stat Lab 06/10/21 14:45 Ordered DRUG SCREEN URINE BIORAD [URCHEM] Stat Lab 06/10/21 14:45 Ordered UA RFX PARISH AND CULT IF INDIC [URIN] Urgent Lab 06/10/21 14:45 Ordered Labs: Laboratory Tests 06/10/21 06/10/21 06/10/21 Range/Units 14:09 14:09 15:20 WBC 10.8 H (5.0-10.0) 10^3/uL RBC 5.02 (4.2-5.4) 10^6/uL Hgb 12.7 (12.0-16.0) g/dL Hct 40.3 (37.0-47.0) % MCV 80.3 D (80-100) fL MCH 25.3 L (27.0-34.0) pg MCHC 31.5 L (33.0-35.0) g/dL Plt Count 317 (150-450) 10^3/uL Neut % (Auto) 73.4 (42.2-75.2) % Lymph % (Auto) 19.2 L (20.5-50.1) % [place] % (Auto) 5.0 (2-8) % Eos % (Auto) 2.2 (1.0-3.0) % Baso % (Auto) 0.2 (0.0-1.0) % Sodium 135 L (136-145) mmol/L Potassium 4.2 (3.5-5.1) mmol/L Chloride 99 (98-107) mmol/L Carbon Dioxide 28 (21-32) mmol/L Anion Gap 12.2 (7-13) mEq/L BUN 13 (7-18) mg/dL Creatinine 0.93 (0.55-1.02) mg/dL Est Cr Clr Drug Dosing 77.31 mL/min Estimated GFR (MDRD) > 60 BUN/Creatinine Ratio 14.0 (No establ ref range) Glucose 267 H (70-99) mg/dL Lactic Acid (0.4-2.0) mmol/L Calcium 9.2 (8.5-10.1) mg/dL Magnesium 1.7 L (1.8-2.4) mg/dL Total Bilirubin 0.3 (0.2-1.0) mg/dL AST 13 L (15-37) U/L ALT 24 (14-59) U/L Alkaline Phosphatase 242 H (46-116) U/L Ammonia < 10 L (11-32) umol/L Total Protein 8.8 H (6.4-8.2) g/dL Albumin 2.7 L (3.4-5.0) g/dL Globulin 6.1 Albumin/Globulin Ratio 0.44 Amylase 41 (25-115) U/L Lipase 77 (73-393) U/L Ethyl Alcohol < 3 (0) mg/dL // Range/Units 15:20 WBC (5.0-10.0) 10^3/uL RBC (4.2-5.4) 10^6/uL Hgb (12.0-16.0) g/dL Hct (37.0-47.0) % MCV (80-100) fL MCH (27.0-34.0) pg MCHC (33.0-35.0) g/dL Plt Count (150-450) 10^3/uL Neut % (Auto) (42.2-75.2) % Lymph % (Auto) (20.5-50.1) % Cook % (Auto) (2-8) % Eos % (Auto) (1.0-3.0) % Baso % (Auto) (0.0-1.0) % Sodium (136-145) mmol/L Potassium (3.5-5.1) mmol/L Chloride (98-107) mmol/L Carbon Dioxide (21-32) mmol/L Anion Gap (7-13) mEq/L BUN (7-18) mg/dL Creatinine (0.55-1.02) mg/dL Est Cr Clr Drug Dosing mL/min Estimated GFR (MDRD) BUN/Creatinine Ratio (No establ ref range) Glucose (70-99) mg/dL Lactic Acid 1.1 (0.4-2.0) mmol/L Calcium (8.5-10.1) mg/dL Magnesium (1.8-2.4) mg/dL Total Bilirubin (0.2-1.0) mg/dL AST (15-37) U/L ALT (14-59) U/L Alkaline Phosphatase (46-116) U/L Ammonia (11-32) umol/L Total Protein (6.4-8.2) g/dL Albumin (3.4-5.0) g/dL Globulin Albumin/Globulin Ratio Amylase (25-115) U/L Lipase (73-393) U/L Ethyl Alcohol (0) mg/dL Meds: Medications Discontinued Medications Generic Name Dose Route Start Last Admin Trade Name Palomo PRN Reason Stop Dose Admin Hydromorphone HCl 1 mg 06/10/21 15:05 06/10/21 15:20 Hydromorphone 1 Mg/Ml Syringe IVPUSH 06/10/21 15:06 1 mg ONETIME ONE Administration Hydromorphone HCl 1 mg 06/10/21 15:55 Hydromorphone 1 Mg/Ml Syringe IVPUSH 06/10/21 15:56 ONETIME ONE - Re-Assessments/Exams Free Text/Narrative Re-Assessment/Exam: 06/10/21 16:13 The patient reports her current pain level is rated at a 6/10. The patient reports she would be more comfortable at home. A second dose of Dilaudid was ordered. Departure - Departure Time of Disposition: 16:14 Disposition: Home, Self-Care 01 Condition: Fair Clinical Impression: Abdominal pain Qualifiers: Abdominal location: right upper quadrant Qualified Code(s): R10.11 - Right upper quadrant pain Liver failure Qualifiers: Liver failure chronicity: acute Hepatic coma status: without hepatic coma Qualified Code(s): K72.00 - Acute and subacute hepatic failure without coma - Discharge Information *PRESCRIPTION DRUG MONITORING PROGRAM REVIEWED*: Not Applicable *COPY OF PRESCRIPTION DRUG MONITORING REPORT IN PATIENT ELEANOR: Not Applicable Instructions: Abdominal Pain, Adult, [id number] Forms: ED Department Discharge Care Plan Goals: The patient was advised of the examination and lab results during the visit. The patient was given IV Dilaudid for pain management with pain reduction. If the patient has any additional symptoms or concerns, the patient should either return to the emergency department or visit her primary care facility. Sepsis Event Note (ED) - Evaluation Sepsis Screening Result: No Definite Risk - Focused Exam Vital Signs: Vital Signs Temp Pulse Resp BP Pulse Ox 06/10/21 13:49 96.6 F L 105 H 18 122/74 99 - My Orders Last 24 Hours: My Active Orders 06/10/21 14:45 CULTURE BLOOD [BC] Stat DRUG SCREEN URINE BIORAD [URCHEM] Stat UA RFX PARISH AND CULT IF INDIC [URIN] Urgent - Assessment/Plan Last 24 Hours: My Active Orders 06/10/21 14:45 CULTURE BLOOD [BC] Stat DRUG SCREEN URINE BIORAD [URCHEM] Stat UA RFX PARISH AND CULT IF INDIC [URIN] Urgent
[2021-06-10] MEDS ORDERED: HYDROmorphone 1 MG/ML Syringe IVPUSH ONE ×2 (15:05→15:55)
[2021-06-10 16:44] VITALS: BP 131/72; PULSE 84
== END 2021-06-10 16:43 | disposition home or self-care (01) ==
LOC: DL.ED 13:20
DX: K72.00 Acute and subacute hepatic failure without coma (principal); E66.9 Obesity, unspecified; E11.9 Type 2 diabetes mellitus without complications; Z91.030 Bee allergy status; Z88.8 Allergy status to other drugs, medicaments and biological substances; Z88.0 Allergy status to penicillin; Z79.4 Long term (current) use of insulin; Z68.32 Body mass index [BMI] 32.0-32.9, adult; Z72.0 Tobacco use; Z79.899 Other long term (current) drug therapy
CPT/HCPCS: 36415; 80053; 80307; 82140; 82150; 83605; 83690; 83735; 85025; 87040; 96374; 96376; 99283; 99284-25; J1170

== ENCOUNTER 2021-07-02 16:36 | Emergency (ER) | payer MEDICARE, MEDICAID ==
[2021-07-02 17:22] VITALS: BP 105/85; PULSE 108
--- NOTE | 2021-07-02 17:44 | EDM.PDOC ---
<Brian Langford - Last Filed: 07/02/21 18:26> ED HPI GENERAL MEDICAL PROBLEM - General Chief Complaint: General Stated Complaint: HAVING ISSUES WITH LIVER SINCE DEC Time Seen by Provider: 07/02/21 17:20 - Related Data Allergies Allergy/AdvReac Type Severity Reaction Status Date / Time bee venom protein (honey bee) Allergy Airway Verified 07/02/21 17:22 Tightness diphenhydramine HCl Allergy Anxiety Verified 07/02/21 17:22 [From Benadryl] penicillin Allergy Airway Verified 07/02/21 17:22 Tightness Home Meds: Home Meds Cyclobenzaprine [Flexeril] 10 mg PO Q8H PRN 12/19/16 [History] Insulin Aspart [NovoLOG] 30 units SQ TIDMEALS 07/28/18 [History] traZODone HCl [Trazodone HCl] 50 mg PO BEDTIME 07/28/18 [History] Gabapentin [Neurontin] 600 mg PO TID 05/02/20 [History] oxyCODONE 10 mg PO 6XDAY PRN 11/02/20 [History] Exenatide Microspheres [Bydureon] 0.85 ml SUBCUT WEEKLY 03/22/21 [History] Insulin Degludec [Tresiba] 82 units SUBCUT DAILY 03/22/21 [History] Course - Re-Assessments/Exams Free Text/Narrative Re-Assessment/Exam: 07/02/21 I saw and evaluated the patient. Discussed with resident and agree with residents findings and plan as documented in the residents note. Departure - Departure Disposition: Against Medical Advice 07 Clinical Impression: Liver mass - Discharge Information Forms: ED Department Discharge <Steven Quintana - Last Filed: 07/02/21 18:55> ED HPI GENERAL MEDICAL PROBLEM - General Source of Information: Reports: Patient History Limitations: Reports: No Limitations - History of Present Illness INITIAL COMMENTS - FREE TEXT/NARRATIVE: Patient is a 46 year old female with past medical history significant for poorly controlled T2DM ( on insulin), fibromyalgia, anxiety, multiple liver masses, splenomegaly, hepatomegaly and liver failure. Patient reports that she has undergone extensive workup on outpatient basis, has been referred to [facility] and is working on a referral to [place] for her liver issues. She reports that she has had biopsies and states that she had infection in the capsule around the liver. She was on a 6 week course of vancomycin for above issues. She has not received any real answers after biopsies and testing. Today, she states that her right upper quadrant pain is getting worse and worse. She additionally believes her skin is yellowing somewhat. She denies fevers and nightsweats. She does report frequently feeling chilled. She states that she does not have her gallbladder. Onset: Gradual Duration: Week(s):, Getting Worse right abdomen Pain Score (Numeric/FACES): 8 Past Medical History - Past Health History Medical/Surgical History: Denies Medical/Surgical History HEENT History: Reports: Other (See Below) Other HEENT History: astygmatism Cardiovascular History: Reports: None Respiratory History: Reports: Bronchitis, Recurrent Gastrointestinal History: Reports: Cholelithiasis Other Gastrointestinal History: liver abscess x5, Fibrosis stage 3-4 Genitourinary History: Reports: Diabetic Nephropathy ALL ROUND BUTCHER History: Reports: Endometriosis, Other ALL ROUND BUTCHER History: 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 Patient states she had a hysterectomy Musculoskeletal History: Reports: Fibromyalgia Neurological History: Reports: Migraines, Neuropathy, Diabetic, Neuropathy, Peripheral, Vertigo Psychiatric History: Reports: Anxiety, Depression, Panic Attack Endocrine/Metabolic History: Reports: Diabetes, Type II, IDDM, Obesity/BMI 30+ Other Endocrine/Metabolic History: Is on UV insulin bid. does not know the exact name. 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 hydronitis supporativa - Infectious Disease History Infectious Disease History: Reports: MRSA - Past Surgical History Head Surgeries/Procedures: Reports: None HEENT Surgical History: Reports: None Respiratory Surgical History: Reports: None GI Surgical History: Reports: Cholecystectomy, Other (See Below) Other GI Surgeries/Procedures: liver biopsies x5 Female Surgical History: Reports: Hysterectomy, Other (See Below) Other Female Surgeries/Procedures: Tumor to rt. breast. Endocrine Surgical History: Reports: None Musculoskeletal Surgical History: Reports: None Social & Family History - Family History Family Medical History: No Pertinent Family History Cardiac: Reports: Hypertension Other Cardiac Family History: Mother Respiratory: Reports: COPD Other Respiratory Family Hisory: Mother OBGYN: Reports: Endometriosis Other OBGYN Family History: Mother Endocrine/Metabolic: Reports: Diabetes, type II Other Endocrine/Metabolic Family History: mother - Tobacco Use Tobacco Use Status *Q: Current Every Day Tobacco User Years of Tobacco use: 30 Packs/Tins Daily: 1 - Caffeine Use Caffeine Use: Reports: Coffee Caffeine Use Comment: Her statesment " I don't know" - Recreational Drug Use Recreational Drug Use: No - Sexual History Sexual History: Reports: Sexually Active - Living Situation & Occupation Living situation: Reports: , with Family Occupation: Unemployed ED ROS GENERAL - Review of Systems Review Of Systems: Comprehensive ROS is negative, except as noted in HPI. ED EXAM, GENERAL - Physical Exam Exam: See Below Exam Limited By: No Limitations General Appearance: Alert, No Apparent Distress Ears: Normal External Exam, Normal Canal, Hearing Grossly Normal Nose: Normal Inspection, Normal Mucosa, No Blood Throat/Mouth: Normal Lips, Normal Voice, No Airway Compromise Head: Atraumatic, Normocephalic Neck: Normal Inspection, Supple. No: Lymphadenopathy (L), Lymphadenopathy (R) Respiratory/Chest: No Respiratory Distress, Lungs Clear, Normal Breath Sounds, No Accessory Muscle Use Cardiovascular: Regular Rate, Rhythm, No Edema, No Gallop, No Murmur, No Rub GI/Abdominal: Soft, Tender. No: Guarding, Rebound (Female) Exam: Deferred Rectal (Female) Exam: Deferred Back Exam: CVA Tenderness (L) Extremities: Normal Range of Motion, Non-Tender, No Pedal Edema Neurological: Alert, Oriented, Normal Cognition Psychiatric: Normal Affect, Normal Mood Skin Exam: Jaundice Lymphatic: No Adenopathy Course - Vital Signs Last Recorded V/S: Last Vital Signs Temp 98.2 F 07/02/21 17:09 Pulse 108 H 07/02/21 17:09 Resp 20 07/02/21 17:09 BP 105/85 07/02/21 17:09 Pulse Ox 97 07/02/21 17:09 - Orders/Labs/Meds Orders: Active Orders 24 hr Category Date Time Status URINALYSIS W/MICROSCOPIC [UA W/MICROSCOPIC] [URIN] Stat Lab 07/02/21 17:49 Ordered Labs: Laboratory Tests 07/02/21 07/02/21 Range/Units 18:02 18:02 WBC 10.2 H (5.0-10.0) 10^3/uL RBC 5.00 (4.2-5.4) 10^6/uL Hgb 12.7 (12.0-16.0) g/dL Hct 39.8 (37.0-47.0) % MCV 79.6 L (80-100) fL MCH 25.4 L (27.0-34.0) pg MCHC 31.9 L (33.0-35.0) g/dL Plt Count 375 (150-450) 10^3/uL Neut % (Auto) 69.0 (42.2-75.2) % Lymph % (Auto) 22.4 (20.5-50.1) % [place] % (Auto) 6.4 (2-8) % Eos % (Auto) 2.0 (1.0-3.0) % Baso % (Auto) 0.2 (0.0-1.0) % Sodium 133 L (136-145) mmol/L Potassium 4.1 (3.5-5.1) mmol/L Chloride 96 L (98-107) mmol/L Carbon Dioxide 27 (21-32) mmol/L Anion Gap 14.1 H (7-13) mEq/L BUN 11 (7-18) mg/dL Creatinine 0.99 (0.55-1.02) mg/dL Est Cr Clr Drug Dosing 70.10 mL/min Estimated GFR (MDRD) 60 BUN/Creatinine Ratio 11.1 (No establ ref range) Glucose 204 H (70-99) mg/dL Calcium 9.1 (8.5-10.1) mg/dL Total Bilirubin 0.4 (0.2-1.0) mg/dL AST 19 (15-37) U/L ALT 29 (14-59) U/L Alkaline Phosphatase 336 H (46-116) U/L Lactate Dehydrogenase 111 (81-234) U/L Total Protein 9.2 H (6.4-8.2) g/dL Albumin 2.5 L (3.4-5.0) g/dL Globulin 6.7 Albumin/Globulin Ratio 0.37 Lipase 31 L (73-393) U/L Departure - Departure Time of Disposition: 18:53 (Patient got up and left after being informed of results. ) - Discharge Information *PRESCRIPTION DRUG MONITORING PROGRAM REVIEWED*: Not Applicable *COPY OF PRESCRIPTION DRUG MONITORING REPORT IN PATIENT ELEANOR: Not Applicable Sepsis Event Note (ED) - Focused Exam Vital Signs: Vital Signs Temp Pulse Resp BP Pulse Ox 07/02/21 17:09 98.2 F 108 H 20 105/85 97 - My Orders Last 24 Hours: My Active Orders 07/02/21 17:49 URINALYSIS W/MICROSCOPIC [UA W/MICROSCOPIC] [URIN] Stat - Assessment/Plan Last 24 Hours: My Active Orders 07/02/21 17:49 URINALYSIS W/MICROSCOPIC [UA W/MICROSCOPIC] [URIN] Stat
[2021-07-02 18:27] LABS: ANION GAP 14.1 mEq/L (7-13)
== END 2021-07-02 18:59 | disposition left against medical advice (07) ==
LOC: DL.ED 16:36
DX: R16.0 Hepatomegaly, not elsewhere classified (principal); E11.21 Type 2 diabetes mellitus with diabetic nephropathy; E11.42 Type 2 diabetes mellitus with diabetic polyneuropathy; E66.9 Obesity, unspecified; Z68.33 Body mass index [BMI] 33.0-33.9, adult; Z72.0 Tobacco use; Z91.030 Bee allergy status; Z88.0 Allergy status to penicillin; Z88.8 Allergy status to other drugs, medicaments and biological substances; Z79.4 Long term (current) use of insulin
CPT/HCPCS: 36415; 80053; 83615; 83690; 85025; 99284

== ENCOUNTER 2021-09-05 19:53 | Emergency (ER) | payer MEDICARE, MEDICAID ==
[2021-09-05] MEDS ORDERED: Acetaminophen/HYDROcodone 325-10 MG Tab PO ONE ×2 (19:54→22:24)
[2021-09-05] MEDS ORDERED: Lidocaine 1% 30 ML SDV INJECT ONE (22:20)
[2021-09-05 23:21] LABS: ANION GAP 13.3 mEq/L (7-13); CHLORIDE,CL 101 mmol/L (98-107); SODIUM,NA 137 mmol/L (136-145)
[2021-09-05] MEDS ORDERED: HYDROmorphone 0.5 MG/0.5 ML Syringe IVPUSH ONE (23:34)
--- NOTE | 2021-09-05 23:34 | EDM.PDOC ---
ED HPI GENERAL MEDICAL PROBLEM - General Chief Complaint: Skin Complaint Stated Complaint: ABSSESS Time Seen by Provider: 09/05/21 20:45 Source of Information: Reports: Patient, RN History Limitations: Reports: No Limitations - History of Present Illness INITIAL COMMENTS - FREE TEXT/NARRATIVE: ED with c/o recurrent abscesses to buttock and below left breast. has recently recieved IV medication through [facility] line that was stopped and placed on bactrim. Abscess initially resolved with IV medication now returning. Contacted infectious disease and was told needed I&D of area. Difficulty sitting due to discomfort in buttock area and pain below breast. No fever. Possible chills. Hx of MRSA. Buttock Pain Score (Numeric/FACES): 8 - Related Data Allergies Allergy/AdvReac Type Severity Reaction Status Date / Time bee venom protein (honey bee) Allergy Airway Verified 09/05/21 20:28 Tightness diphenhydramine HCl Allergy Anxiety Verified 09/05/21 20:28 [From Benadryl] penicillin Allergy Airway Verified 09/05/21 20:28 Tightness Home Meds: Home Meds Cyclobenzaprine [Flexeril] 10 mg PO Q8H PRN 12/19/16 [History] Insulin Aspart [NovoLOG] 30 units SQ TIDMEALS 07/28/18 [History] traZODone HCl [Trazodone HCl] 50 mg PO BEDTIME 07/28/18 [History] Gabapentin [Neurontin] 600 mg PO TID 05/02/20 [History] oxyCODONE 10 mg PO 6XDAY PRN 11/02/20 [History] Exenatide Microspheres [Bydureon] 0.85 ml SUBCUT WEEKLY 03/22/21 [History] Insulin Degludec [Tresiba] 82 units SUBCUT DAILY 03/22/21 [History] Past Medical History - Past Health History Medical/Surgical History: Denies Medical/Surgical History HEENT History: Reports: Other (See Below) Other HEENT History: astygmatism Cardiovascular History: Reports: None Respiratory History: Reports: Bronchitis, Recurrent Gastrointestinal History: Reports: Cholelithiasis Other Gastrointestinal History: liver abscess x5, 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 Patient states she had a hysterectomy Musculoskeletal History: Reports: Fibromyalgia Neurological History: Reports: Migraines, Neuropathy, Diabetic, Neuropathy, Peripheral, Vertigo Psychiatric History: Reports: Anxiety, Depression, Panic Attack Endocrine/Metabolic History: Reports: Diabetes, Type II, IDDM, Obesity/BMI 30+ Other Endocrine/Metabolic History: Is on UV insulin bid. does not know the exact name. 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 hydronitis supporativa - Infectious Disease History Infectious Disease History: Reports: MRSA - Past Surgical History Head Surgeries/Procedures: Reports: None HEENT Surgical History: Reports: None Respiratory Surgical History: Reports: None GI Surgical History: Reports: Cholecystectomy, Other (See Below) Other GI Surgeries/Procedures: liver biopsies x5 Female Surgical History: Reports: Hysterectomy, Other (See Below) Other Female Surgeries/Procedures: Tumor to rt. breast. Endocrine Surgical History: Reports: None Musculoskeletal Surgical History: Reports: None Social & Family History - Family History Family Medical History: No Pertinent Family History Cardiac: Reports: Hypertension Other Cardiac Family History: Mother Respiratory: Reports: COPD Other Respiratory Family Hisory: Mother OBGYN: Reports: Endometriosis Other OBGYN Family History: Mother Endocrine/Metabolic: Reports: Diabetes, type II Other Endocrine/Metabolic Family History: mother - Tobacco Use Tobacco Use Status *Q: Current Every Day Tobacco User Years of Tobacco use: 24 Packs/Tins Daily: 1 - Caffeine Use Caffeine Use: Reports: Coffee, Soda Caffeine Use Comment: Her statesment " I don't know" - Recreational Drug Use Recreational Drug Use: No - Sexual History Sexual History: Reports: Sexually Active - Living Situation & Occupation Living situation: Reports: , with Family Occupation: Unemployed ED ROS GENERAL - Review of Systems Review Of Systems: Comprehensive ROS is negative, except as noted in HPI. ED EXAM, SKIN/RASH Exam: See Below Exam Limited By: No Limitations General Appearance: Alert, Anxious, Moderate Distress, Obese Eye Exam: Bilateral Eye: EOMI Ears: Normal External Exam Nose: Normal Inspection Throat/Mouth: Normal Inspection, Normal Voice Head: Atraumatic, Normocephalic Neck: Normal Inspection Respiratory/Chest: No Respiratory Distress, Lungs Clear Cardiovascular: Regular Rate, Rhythm GI/Abdominal: Normal Bowel Sounds Back Exam: Normal Inspection Extremities: Normal Inspection Neurological: Alert, Oriented, Normal Cognition Psychiatric: Anxious, Tearful Skin: Warm, Dry, Wound/Incision (3x2 abscess below left breast minimal induration, immediate area warm tender. fluctuant), Other (1x1cm indurated area right upper buttock firm tender ) ED SKIN PROCEDURES - I&D Site: below left breast Skin Prep: Providone-Iodine (Betadine) Local Anesthesia: Lidocaine: 1% Plain Local Anesthetic Volume: 2cc Area Incised With: 11 Blade Drainage: Purulent, Moderate Amount Probed to Break Up Loculations: No Sterile Dressinx4(s) Complications: No Course - Vital Signs Last Recorded V/S: Last Vital Signs Temp 98.1 F 09/06/21 01:50 Pulse 92 09/06/21 01:50 Resp 18 09/06/21 01:50 BP 146/91 H 09/05/21 23:57 Pulse Ox 96 09/06/21 01:50 - Orders/Labs/Meds Labs: Laboratory Tests 09/05/21 09/05/21 09/05/21 Range/Units 22:55 22:55 22:55 WBC 10.6 H (5.0-10.0) 10^3/uL RBC 4.87 (4.2-5.4) 10^6/uL Hgb 13.1 (12.0-16.0) g/dL Hct 40.4 (37.0-47.0) % MCV 83.0 D (80-100) fL MCH 26.9 L (27.0-34.0) pg MCHC 32.4 L (33.0-35.0) g/dL Plt Count 287 D (150-450) 10^3/uL Neut % (Auto) 65.6 (42.2-75.2) % Lymph % (Auto) 23.8 (20.5-50.1) % Edgar % (Auto) 7.5 (2-8) % Eos % (Auto) 2.9 (1.0-3.0) % Baso % (Auto) 0.2 (0.0-1.0) % Sodium 137 (136-145) mmol/L Potassium 4.3 (3.5-5.1) mmol/L Chloride 101 (98-107) mmol/L Carbon Dioxide 27 (21-32) mmol/L Anion Gap 13.3 H (7-13) mEq/L BUN 17 (7-18) mg/dL Creatinine 0.96 (0.55-1.02) mg/dL Est Cr Clr Drug Dosing 72.29 mL/min Estimated GFR (MDRD) > 60 BUN/Creatinine Ratio 17.7 (No establ ref range) Glucose 172 H (70-99) mg/dL Lactic Acid 0.7 (0.4-2.0) mmol/L Calcium 8.7 (8.5-10.1) mg/dL Total Bilirubin 0.4 (0.2-1.0) mg/dL AST 18 (15-37) U/L ALT 39 (14-59) U/L Alkaline Phosphatase 259 H (46-116) U/L Total Protein 7.4 (6.4-8.2) g/dL Albumin 2.9 L (3.4-5.0) g/dL Globulin 4.5 Albumin/Globulin Ratio 0.64 Meds: Medications Discontinued Medications Generic Name Dose Route Start Last Admin Trade Name Freq PRN Reason Stop Dose Admin Hydrocodone Bitart/Acetaminophen 1 tab 09/05/21 22:24 09/05/21 23:05 Acetaminophen/Hydrocodone 325-10 Mg Tab PO 09/05/21 22:25 1 tab ONETIME ONE Administration Hydrocodone Bitart/Acetaminophen Confirm 09/06/21 01:41 09/06/21 01:53 Acetaminophen/Hydrocodone 325-10 Mg Tab Administered 09/06/21 01:42 2 tab Dose Administration 2 tab .ROUTE .STK-MED ONE Hydromorphone HCl 0.5 mg 09/05/21 23:34 09/05/21 23:54 Hydromorphone 0.5 Mg/0.5 Ml Syringe IVPUSH 09/05/21 23:35 0.5 mg ONETIME ONE Administration Hydromorphone HCl 0.5 mg 09/06/21 00:49 09/06/21 01:27 Hydromorphone 0.5 Mg/0.5 Ml Syringe IVPUSH 09/06/21 00:50 0.5 mg ONETIME ONE Administration Vancomycin HCl 1,500 mg/ 500 mls @ 333.333 mls/hr 09/05/21 22:19 09/05/21 23:21 Sodium Chloride IV 09/05/21 23:48 333.333 mls/hr ONETIME ONE Administration Lidocaine HCl 30 ml 09/05/21 22:20 09/05/21 23:10 Lidocaine 1% 30 Ml Sdv INJECT 09/05/21 22:21 30 ml ONETIME ONE Administration Departure - Departure Time of Disposition: 01:55 Disposition: Home, Self-Care 01 Condition: Good Clinical Impression: Skin abscess Qualifiers: Site of cutaneous abscess: trunk Site of cutaneous abscess of trunk: chest wall Qualified Code(s): L02.213 - Cutaneous abscess of chest wall - Discharge Information *PRESCRIPTION DRUG MONITORING PROGRAM REVIEWED*: No *COPY OF PRESCRIPTION DRUG MONITORING REPORT IN PATIENT ELEANOR: No Instructions: Skin Abscess Referrals: Fiorella Ta MD [Primary Care Provider] - Forms: ED Department Discharge Additional Instructions: Continue bactrim folow up with infectious Disease this week Keflex 500mg one three times daily for one week alternate tylenol and ibuprofen every 4 hours as needed for mild to moderate pain hydrocodoe 10/325 one every 6 hours as needed for severe pain. #2 Warm pack to areas
[2021-09-05 23:58] VITALS: BP 146/91
[2021-09-06] MEDS ORDERED: HYDROmorphone 0.5 MG/0.5 ML Syringe IVPUSH ONE (00:49)
[2021-09-06] MEDS ORDERED: Acetaminophen/HYDROcodone 325-10 MG Tab ONE (01:41)
[2021-09-06 02:22] VITALS: PULSE 92
== END 2021-09-06 01:58 | disposition home or self-care (01) ==
LOC: DL.ED 19:53
DX: L02.213 Cutaneous abscess of chest wall (principal); L02.31 Cutaneous abscess of buttock; E11.21 Type 2 diabetes mellitus with diabetic nephropathy; E11.42 Type 2 diabetes mellitus with diabetic polyneuropathy; E66.9 Obesity, unspecified; Z72.0 Tobacco use; Z91.030 Bee allergy status; Z88.8 Allergy status to other drugs, medicaments and biological substances; Z88.0 Allergy status to penicillin; Z79.4 Long term (current) use of insulin; Z79.899 Other long term (current) drug therapy
CPT/HCPCS: 10060; 36415; 80053; 83605; 85025; 87070; 96365; 96375; 96376; 99283; A9270; J1170; J3370; J7040; 87077; 87186

== ENCOUNTER 2021-11-06 13:31 | Emergency (ER) | payer MEDICARE, MEDICAID ==
[2021-11-06 13:46] VITALS: PULSE 106
[2021-11-06 14:40] LABS: CORONAVIRUS COVID-19 NAA POSITIVE (NEGATIVE)
[2021-11-06 18:47] LABS: ANION GAP 20.3 mEq/L (7-13); CHLORIDE,CL 101 mmol/L (98-107); SODIUM,NA 137 mmol/L (136-145)
== END 2021-11-06 19:40 | disposition home or self-care (01) ==
LOC: DL.ED 13:31
DX: U07.1 COVID-19 (principal); E87.5 Hyperkalemia; E11.9 Type 2 diabetes mellitus without complications; E66.9 Obesity, unspecified; Z68.30 Body mass index [BMI] 30.0-30.9, adult; Z91.030 Bee allergy status; Z88.0 Allergy status to penicillin; Z88.8 Allergy status to other drugs, medicaments and biological substances; Z79.4 Long term (current) use of insulin; Z72.0 Tobacco use
CPT/HCPCS: 0240U; 36415; 80053; 83735; 85025; 99283

== ENCOUNTER 2022-06-09 16:32 | Emergency (ER) | payer MEDICARE, MEDICAID ==
[2022-06-09] MEDS ORDERED: Benzonatate 100 MG Cap PO ONE (16:33)
[2022-06-09 16:48] VITALS: BP 133/82; PULSE 98
[2022-06-09 17:25] LABS: ANION GAP 11.1 mEq/L (7-13); CHLORIDE,CL 103 mmol/L (98-107); ESTIMATED GFR 68 mL/min (>=60); SODIUM,NA 135 mmol/L (136-145)
[2022-06-09 17:32] LABS: CORONAVIRUS COVID-19 NAA NEGATIVE (NEGATIVE)
[2022-06-09] MEDS ORDERED: Albuterol/Ipratropium 3.0-0.5 MG/3 ML Neb Soln NEB ONE (17:46)
[2022-06-09] MEDS ORDERED: methylPREDNISolone Sodium Succinate 125 MG/2 ML SDV IM ONE (17:46)
[2022-06-09] MEDS ORDERED: Benzonatate 100 MG Cap ONE (18:25)
== END 2022-06-09 18:34 | disposition home or self-care (01) ==
LOC: DL.ED 16:32
DX: J44.1 Chronic obstructive pulmonary disease with (acute) exacerbation (principal); E11.21 Type 2 diabetes mellitus with diabetic nephropathy; E66.9 Obesity, unspecified; F17.210 Nicotine dependence, cigarettes, uncomplicated; Z88.0 Allergy status to penicillin; Z91.030 Bee allergy status; Z68.37 Body mass index [BMI] 37.0-37.9, adult; Z79.4 Long term (current) use of insulin; Z20.822 Contact with and (suspected) exposure to COVID-19
CPT/HCPCS: 0240U; 36415; 71045; 80053; 82150; 83605; 83690; 84145; 84484; 85025; 85379; 86140; 93005; 93010; 94640; 96372; 99284; 99285; A9270-GY; J2930; J7620-GY

== ENCOUNTER 2023-03-29 16:43 | Emergency (ER) | payer MEDICARE, MEDICAID | END 2023-03-29 17:59 | disposition left against medical advice (07) | LOC: DL.ED 16:43 | DX: Z53.21 Procedure and treatment not carried out due to patient leaving prior to being seen by health care provider (principal) ==

== ENCOUNTER 2023-03-29 21:32 | Emergency (ER) | payer MEDICARE, MEDICAID ==
[2023-03-29] MEDS ORDERED: Ketorolac 30 MG/ML SDV IM ONE (22:01)
[2023-03-29 22:03] VITALS: BP 146/61; PULSE 99
== END 2023-03-29 23:14 | disposition home or self-care (01) ==
LOC: DL.ED 21:32
DX: S92.512A Displaced fracture of proximal phalanx of left lesser toe(s), initial encounter for closed fracture (principal); E11.21 Type 2 diabetes mellitus with diabetic nephropathy; E11.42 Type 2 diabetes mellitus with diabetic polyneuropathy; E66.9 Obesity, unspecified; Z68.39 Body mass index [BMI] 39.0-39.9, adult; Z91.030 Bee allergy status; Z88.8 Allergy status to other drugs, medicaments and biological substances; Z88.0 Allergy status to penicillin; Z79.4 Long term (current) use of insulin; Z79.899 Other long term (current) drug therapy; W10.9XXA Fall (on) (from) unspecified stairs and steps, initial encounter
CPT/HCPCS: 73630-LT; 96372; 99283; J1885

== ENCOUNTER 2023-04-27 14:56 | Emergency (ER) | payer MEDICARE, MEDICAID ==
[2023-04-27] MEDS ORDERED: Sodium Chloride 0.9% 10 ML Syringe FLUSH PRN (15:16)
[2023-04-27 15:19] VITALS: BP 142/72; PULSE 88
[2023-04-27 15:34] LABS: BASOPHILS PERCENT AUTO 0.3 % (0.0-1.0); EOSINOPHILS PERCENT AUTO 4.2 % (1.0-3.0); HEMATOCRIT 39.4 % (37.0-47.0); LYMPHOCYTES PERCENT AUTO 24.7 % (20.5-50.1); MEAN CORPUSCULAR HEMOGLOBIN 28.3 pg (27.0-34.0); MEAN CORPUSCULAR VOLUME 85.8 fL (80-100); MONOCYTES PERCENT AUTO 6.3 % (2-8); NEUTROPHILS PERCENT AUTO 64.5 % (42.2-75.2); PLATELET COUNT,PLT 227 10^3/uL (150-450); RED BLOOD CELL COUNT 4.59 10^6/uL (4.2-5.4); WHITE BLOOD CELL COUNT,WBC 7.9 10^3/uL (5.0-10.0)
[2023-04-27 15:58] LABS: ALBUMIN 3.2 g/dL (3.4-5.0); ANION GAP 13.6 mEq/L (7-13); BILIRUBIN TOTAL 0.3 mg/dL (0.2-1.0); C-REACTIVE PROTEIN 2.3 mg/dL (0.0-0.9); CALCIUM 8.7 mg/dL (8.5-10.1); CREATININE 1.14 mg/dL (0.55-1.02); EST CRCL DRUG DOSING (CG) 59.56 mL/min; MAGNESIUM 1.9 mg/dL (1.8-2.4); POTASSIUM,K 4.6 mmol/L (3.5-5.1); PROTEIN TOTAL,TP 7.5 g/dL (6.4-8.2)
[2023-04-27 16:01] LABS: A/G RATIO 0.74
[2023-04-27] MEDS ORDERED: Dexamethasone 4 MG/ML SDV IM ONE (16:02)
== END 2023-04-27 16:10 | disposition home or self-care (01) ==
LOC: DL.ED 14:56
DX: M94.0 Chondrocostal junction syndrome [Tietze] (principal); E11.21 Type 2 diabetes mellitus with diabetic nephropathy; E11.42 Type 2 diabetes mellitus with diabetic polyneuropathy; E66.9 Obesity, unspecified; Z68.41 Body mass index [BMI] 40.0-44.9, adult; Z88.8 Allergy status to other drugs, medicaments and biological substances; Z88.0 Allergy status to penicillin; Z91.030 Bee allergy status; Z79.899 Other long term (current) drug therapy; Z79.4 Long term (current) use of insulin
CPT/HCPCS: 36415; 71045; 80053; 82150; 83690; 83735; 84484; 85025; 85379; 86140; 93005; 93010; 96372; 99284; 99285; J1100

== ENCOUNTER 2023-06-05 14:42 | Emergency (ER) | payer MEDICARE, MEDICAID ==
[2023-06-05 17:02] VITALS: BP 133/57; PULSE 90
[2023-06-05] MEDS: Ketorolac 30 MG/ML SDV IM ONE (17:15)
== END 2023-06-05 17:48 | disposition home or self-care (01) ==
LOC: DL.ED 14:42
DX: S70.01XA Contusion of right hip, initial encounter (principal); M54.50 Low back pain, unspecified; Z88.0 Allergy status to penicillin; J44.9 Chronic obstructive pulmonary disease, unspecified; Z88.8 Allergy status to other drugs, medicaments and biological substances; Z91.030 Bee allergy status; W19.XXXA Unspecified fall, initial encounter
CPT/HCPCS: 73610-LT; 73630-LT; 99283

== ENCOUNTER 2024-07-09 21:00 | Emergency (ER) | payer MEDICARE, MEDICAID ==
[2024-07-09 21:23] VITALS: BP 157/86; PULSE 81
[2024-07-09] MEDS ORDERED: Sodium Chloride 0.9% 10 ML Syringe FLUSH PRN (21:25)
[2024-07-09 21:37] LABS: BASOPHILS PERCENT AUTO 0.4 % (0.0-1.0); EOSINOPHILS PERCENT AUTO 4.7 % (1.0-3.0); HEMOGLOBIN 12.8 g/dL (12.0-16.0); LYMPHOCYTES PERCENT AUTO 26.8 % (20.5-50.1); MEAN CORPUSCULAR HEMOGLOBIN 28.6 pg (27.0-34.0); MEAN CORPUSCULAR HGB CONC 32.8 g/dL (33.0-35.0); MEAN CORPUSCULAR VOLUME 87.2 fL (80-100); MONOCYTES PERCENT AUTO 6.9 % (2-8); NEUTROPHILS PERCENT AUTO 61.2 % (42.2-75.2); PLATELET COUNT,PLT 258 10^3/uL (150-450); RED BLOOD CELL COUNT 4.47 10^6/uL (4.2-5.4)
[2024-07-09 22:05] LABS: ALANINE AMINOTRANSFERASE,ALT 26 U/L (14-59); ALBUMIN 3.1 g/dL (3.4-5.0); ALKALINE PHOSPHATASE 183 U/L (46-116); ASPARTATE AMNIOTRANSFERASE,AST 14 U/L (15-37); BILIRUBIN TOTAL 0.2 mg/dL (0.2-1.0); BLOOD UREA NITROGEN,BUN 16 mg/dL (7-18); BUN/CREATININE RATIO 11.9 (No establ ref range); C-REACTIVE PROTEIN 2.54 ng/dL (<=0.50); CALCIUM 9.3 mg/dL (8.5-10.1); CARBON DIOXIDE,CO2 29 mmol/L (21-32); CHLORIDE,CL 103 mmol/L (98-107); CREATININE 1.35 mg/dL (0.55-1.02); EST CRCL DRUG DOSING (CG) 49.73 mL/min; GLUCOSE RANDOM 253 mg/dL (70-99); LIPASE 27 U/L (16-77); MAGNESIUM 1.6 mg/dL (1.8-2.4); PROTEIN TOTAL,TP 7.5 g/dL (6.4-8.2); SODIUM,NA 138 mmol/L (136-145)
[2024-07-09 22:09] LABS: ESTIMATED GFR 48 mL/min (>=60); ETHANOL BLOOD MEDICAL < 3 mg/dL (0)
== END 2024-07-09 22:34 | disposition home or self-care (01) ==
LOC: DL.ED 21:00
DX: J18.9 Pneumonia, unspecified organism (principal); I10 Essential (primary) hypertension; E11.9 Type 2 diabetes mellitus without complications; E66.9 Obesity, unspecified; Z86.16 Personal history of COVID-19; Z90.49 Acquired absence of other specified parts of digestive tract; Z90.710 Acquired absence of both cervix and uterus; Z79.4 Long term (current) use of insulin; Z79.899 Other long term (current) drug therapy; Z88.0 Allergy status to penicillin; Z91.030 Bee allergy status; Z88.5 Allergy status to narcotic agent; Z68.41 Body mass index [BMI] 40.0-44.9, adult; Z79.2 Long term (current) use of antibiotics
CPT/HCPCS: 36415; 71045; 80053; 80307; 83690; 83735; 84484; 85025; 86140; 93005; 93010; 99284; 99285

== ENCOUNTER 2024-11-29 14:42 | Emergency (ER) | payer MEDICARE, MEDICAID ==
[2024-11-29] MEDS ORDERED: Iopamidol 612 MG/ML 100 ML Bottle IVPUSH ONE ×2 (15:28→15:29)
[2024-11-29 15:45] LABS: BASOPHILS PERCENT AUTO 0.4 % (0.0-1.0); EOSINOPHILS PERCENT AUTO 2.2 % (1.0-3.0); HEMATOCRIT 38.4 % (37.0-47.0); HEMOGLOBIN 12.8 g/dL (12.0-16.0); LYMPHOCYTES PERCENT AUTO 21.1 % (20.5-50.1); MEAN CORPUSCULAR HEMOGLOBIN 28.8 pg (27.0-34.0); MEAN CORPUSCULAR HGB CONC 33.3 g/dL (33.0-35.0); MEAN CORPUSCULAR VOLUME 86.5 fL (80-100); MONOCYTES PERCENT AUTO 6.2 % (2-8); NEUTROPHILS PERCENT AUTO 70.1 % (42.2-75.2); PLATELET COUNT,PLT 213 10^3/uL (150-450); RED BLOOD CELL COUNT 4.44 10^6/uL (4.2-5.4); WHITE BLOOD CELL COUNT,WBC 8.5 10^3/uL (5.0-10.0)
[2024-11-29 16:02] LABS: BASE EXCESS VENOUS -0.8 mmol/l ((-2)-(+3)); BICARBONATE,VENOUS 24 mmol/l (19-25); O2 DELIVERY DEVICE ROOM AIR; O2 SATURATION VENOUS 58.5 % (60-80); PCO2 VENOUS 43 mmHg (41-51); PH,VENOUS 7.37 (7.31-7.41); PO2 VENOUS 32 mmHg (35-42)
[2024-11-29 16:05] LABS: INR 0.9 (0.9-1.2); PROTHROMBIN TIME 9.3 SEC (9.0-12.0)
[2024-11-29] MEDS: Iopamidol 755 Mg/ML 100 ML Bottle IVPUSH ONE (16:07)
[2024-11-29 16:09] VITALS: BP 150/71; PULSE 90
[2024-11-29 16:13] LABS: A/G RATIO 0.75; ANION GAP 12.4 mEq/L (7-13); BILIRUBIN TOTAL 0.3 mg/dL (0.2-1.0); BUN/CREATININE RATIO 12.3 (No establ ref range); CALCIUM 8.9 mg/dL (8.5-10.1); CREATININE 1.55 mg/dL (0.55-1.02); EST CRCL DRUG DOSING (CG) 43.32 mL/min; MAGNESIUM 1.6 mg/dL (1.8-2.4); POTASSIUM,K 4.4 mmol/L (3.5-5.1)
[2024-11-29] MEDS: Magnesium Sulf/Wat 2 GM/50 mL 2 GM in Premix Bag 1 BAG IV ONE (16:28)
[2024-11-29] MEDS: Sodium Chloride 0.9% 1,000 ML IV ONE (16:30)
== END 2024-11-29 17:24 ==
LOC: DL.ED 14:42
DX: R42 Dizziness and giddiness (principal); E83.42 Hypomagnesemia; N17.9 Acute kidney failure, unspecified; E11.65 Type 2 diabetes mellitus with hyperglycemia; E66.9 Obesity, unspecified; F17.210 Nicotine dependence, cigarettes, uncomplicated; Z86.16 Personal history of COVID-19; Z90.49 Acquired absence of other specified parts of digestive tract; Z90.710 Acquired absence of both cervix and uterus; Z68.39 Body mass index [BMI] 39.0-39.9, adult; Z79.4 Long term (current) use of insulin; Z79.2 Long term (current) use of antibiotics; Z79.899 Other long term (current) drug therapy; Z88.0 Allergy status to penicillin; Z88.8 Allergy status to other drugs, medicaments and biological substances; Z91.030 Bee allergy status
CPT/HCPCS: 36415; 70450; 70496; 70498; 71045; 80053; 82803; 82947; 83735; 84484; 85025; 85610; 93005; 93010; 99284; 99285; Q9967

== ENCOUNTER 2024-12-29 22:02 | Emergency (ER) | payer MEDICARE, MEDICAID ==
[2024-12-30] MEDS: Acetaminophen 325 MG Tab PO ONE (00:01)
[2024-12-30] MEDS: Sodium Chloride 0.9% 1,000 ML IV ONE ×2 (00:02→01:58)
[2024-12-30] MEDS: Orphenadrine 60 MG/2 ML Inj IV ONE (00:02)
[2024-12-30 00:04] LABS: BASOPHILS PERCENT AUTO 0.4 % (0.0-1.0); HEMATOCRIT 39.9 % (37.0-47.0); HEMOGLOBIN 13.1 g/dL (12.0-16.0); MEAN CORPUSCULAR HEMOGLOBIN 28.9 pg (27.0-34.0); MEAN CORPUSCULAR HGB CONC 32.8 g/dL (33.0-35.0); MEAN CORPUSCULAR VOLUME 88.1 fL (80-100); MONOCYTES PERCENT AUTO 6.4 % (2-8); NEUTROPHILS PERCENT AUTO 64.2 % (42.2-75.2); PLATELET COUNT,PLT 211 10^3/uL (150-450); RED BLOOD CELL COUNT 4.53 10^6/uL (4.2-5.4)
[2024-12-30 00:29] LABS: ALBUMIN 2.8 g/dL (3.4-5.0); BILIRUBIN TOTAL 0.2 mg/dL (0.2-1.0); BUN/CREATININE RATIO 12.9 (No establ ref range); CALCIUM 9.3 mg/dL (8.5-10.1); CREATININE 1.63 mg/dL (0.55-1.02); EST CRCL DRUG DOSING (CG) 41.19 mL/min; MAGNESIUM 1.8 mg/dL (1.8-2.4)
[2024-12-30 00:36] LABS: ANION GAP 11.6 mEq/L (7-13); POTASSIUM,K 4.6 mmol/L (3.5-5.1)
[2024-12-30 00:38] LABS: A/G RATIO 0.67
[2024-12-30 01:02] LABS: O2 DELIVERY DEVICE NASAL CANNULA
[2024-12-30 01:12] LABS: BASE EXCESS VENOUS 1.2 mmol/l ((-2)-(+3)); BICARBONATE,VENOUS 27 mmol/l (19-25); O2 SATURATION VENOUS 70.6 % (60-80); PCO2 VENOUS 50 mmHg (41-51); PH,VENOUS 7.35 (7.31-7.41); PO2 VENOUS 41 mmHg (35-42)
[2024-12-30 01:40] LABS: APPEARANCE,URINE SLIGHTLY CLOUDY (CLEAR); BILIRUBIN,URINE NEGATIVE (NEGATIVE); COLOR,URINE YELLOW (YELLOW); GLUCOSE,URINE 500 (NEGATIVE); KETONES,URINE NEGATIVE (NEGATIVE); LEUKOCYTE ESTERASE,URINE NEGATIVE (NEGATIVE); NITRITE,URINE POSITIVE (NEGATIVE); OCCULT BLOOD,URINE MODERATE (NEGATIVE); PH,URINE 5.5 (5.0-9.0); PROTEIN,URINE >=300 (NEGATIVE); UROBILINOGEN,URINE 0.2 mg/dL (0.2-1.0)
[2024-12-30 01:54] LABS: BACTERIA,URINE MODERATE /HPF (0-FEW/HPF); EPITHELIAL CELLS,URINE MODERATE /HPF (NOT SEEN); MUCUS,URINE FEW /LPF (NOT SEEN); YEAST,URINE RARE /HPF (NOT SEEN)
[2024-12-30 01:55] LABS: AMORPHOUS SEDIMENT,URINE MANY /HPF (NOT SEEN); GRANULAR CASTS,URINE FEW
[2024-12-30] MEDS: Ciprofloxacin in D5W 400 MG in Premix Bag 1 BAG IV ONE (02:27)
[2024-12-30] MEDS ORDERED: Glucagon,Human Recombinant 1 MG Vial IM PRN (03:58)
[2024-12-30] MEDS ORDERED: 50% Dextrose in Water 50 ML Syringe IVPUSH PRN (03:58)
[2024-12-30] MEDS: Insulin Regular, Human 100 Units/ML 10 ML Vial SUBCUT ONE (04:09)
[2024-12-30] MEDS: Morphine 2 MG/ML SYRINGE IVPUSH ONE (04:10)
[2024-12-30] MEDS: Ondansetron 4 MG/2 ML SDV IVPUSH ONE (04:10)
[2024-12-30 06:22] VITALS: BP 163/76; PULSE 71
== END 2024-12-30 04:43 | disposition home or self-care (01) ==
LOC: DL.ED 22:02
DX: N39.0 Urinary tract infection, site not specified (principal); N17.9 Acute kidney failure, unspecified; I12.9 Hypertensive chronic kidney disease with stage 1 through stage 4 chronic kidney disease, or unspecified chronic kidney disease; N18.9 Chronic kidney disease, unspecified; J44.9 Chronic obstructive pulmonary disease, unspecified; E11.22 Type 2 diabetes mellitus with diabetic chronic kidney disease; F17.210 Nicotine dependence, cigarettes, uncomplicated; Z90.710 Acquired absence of both cervix and uterus; Z86.16 Personal history of COVID-19; Z91.030 Bee allergy status; Z88.0 Allergy status to penicillin; Z88.8 Allergy status to other drugs, medicaments and biological substances; Z79.51 Long term (current) use of inhaled steroids; Z79.4 Long term (current) use of insulin; Z79.899 Other long term (current) drug therapy
CPT/HCPCS: 36415; 74176; 80053; 81001; 82803; 82947; 83690; 83735; 85025; 87086; 96361; 96365; 96375; 99284; 99284-25; A9270-GY; J0744; J2270; J2360; J2405; J7030

== ENCOUNTER 2025-04-16 17:46 | Emergency (ER) | payer MEDICARE, MEDICAID ==
[2025-04-16 18:30] VITALS: BP 147/78; PULSE 65
== END 2025-04-16 18:25 | disposition home or self-care (01) ==
LOC: DL.ED 17:46
DX: T82.594A Other mechanical complication of infusion catheter, initial encounter (principal); I10 Essential (primary) hypertension; J44.9 Chronic obstructive pulmonary disease, unspecified; E11.9 Type 2 diabetes mellitus without complications; E66.9 Obesity, unspecified; Z86.16 Personal history of COVID-19; Z90.710 Acquired absence of both cervix and uterus; Z79.899 Other long term (current) drug therapy; Z79.4 Long term (current) use of insulin; Z91.030 Bee allergy status; Z88.0 Allergy status to penicillin; Z88.8 Allergy status to other drugs, medicaments and biological substances
CPT/HCPCS: 99283

== ENCOUNTER 2025-05-22 13:52 | Emergency (ER) | payer MEDICARE, MEDICAID ==
[2025-05-22] MEDS ORDERED: Sodium Chloride 0.9% 10 ML Syringe FLUSH PRN (14:15)
[2025-05-22 14:33] LABS: BASOPHILS PERCENT AUTO 0.2 % (0.0-1.0); EOSINOPHILS PERCENT AUTO 2.7 % (1.0-3.0); LYMPHOCYTES PERCENT AUTO 22.7 % (20.5-50.1); MONOCYTES PERCENT AUTO 5.7 % (2-8); NEUTROPHILS PERCENT AUTO 68.7 % (42.2-75.2); PLATELET COUNT,PLT 246 10^3/uL (150-450); RED BLOOD CELL COUNT 4.71 10^6/uL (4.2-5.4); WHITE BLOOD CELL COUNT,WBC 8.3 10^3/uL (5.0-10.0)
[2025-05-22] MEDS: Iopamidol 612 MG/ML 100 ML Bottle IVPUSH ONE (14:34)
[2025-05-22] MEDS: Iopamidol 755 Mg/ML 100 ML Bottle IVPUSH ONE (14:34)
[2025-05-22 14:50] LABS: INR 0.9 (0.9-1.2); PTT,PARTIAL THROMBOPLSTIN TIME 23.6 SEC (22.0-34.0)
[2025-05-22 14:52] LABS: A/G RATIO 0.74; ALANINE AMINOTRANSFERASE,ALT 26.0 U/L (14-59); ASPARTATE AMNIOTRANSFERASE,AST 13.0 U/L (15-37); BILIRUBIN TOTAL 0.3 mg/dL (0.2-1.0); BLOOD UREA NITROGEN,BUN 27.0 mg/dL (7-18); CARBON DIOXIDE,CO2 25.0 mmol/L (21-32); CHLORIDE,CL 100.0 mmol/L (98-107); CREATININE 1.67 mg/dL (0.55-1.02); EST CRCL DRUG DOSING (CG) 39.75 mL/min; ESTIMATED GFR 37.0 mL/min (>=60); GLUCOSE RANDOM 328.0 mg/dL (70-99); POTASSIUM,K 4.9 mmol/L (3.5-5.1); PROTEIN TOTAL,TP 7.5 g/dL (6.4-8.2); SODIUM,NA 133.0 mmol/L (136-145)
[2025-05-22 15:55] VITALS: BP 129/61; PULSE 73
== END 2025-05-22 16:30 | disposition home or self-care (01) ==
LOC: DL.ED 13:52
DX: F41.9 Anxiety disorder, unspecified (principal); I10 Essential (primary) hypertension; J44.9 Chronic obstructive pulmonary disease, unspecified; E11.9 Type 2 diabetes mellitus without complications; Z86.16 Personal history of COVID-19; Z91.030 Bee allergy status; Z88.8 Allergy status to other drugs, medicaments and biological substances; Z88.0 Allergy status to penicillin; Z79.51 Long term (current) use of inhaled steroids; Z79.4 Long term (current) use of insulin
CPT/HCPCS: 36415; 70450; 70496; 70498; 80053; 82947; 84484; 85025; 85610; 85730; 93005; 99284; Q9967

== ENCOUNTER 2025-07-27 13:34 | Emergency (ER) | payer MEDICARE, MEDICAID ==
[2025-07-27] MEDS ORDERED: Sodium Chloride 0.9% 10 ML Syringe FLUSH PRN (13:51)
[2025-07-27 14:14] LABS: BASOPHILS PERCENT AUTO 0.2 % (0.0-1.0); EOSINOPHILS PERCENT AUTO 2.9 % (1.0-3.0); LYMPHOCYTES PERCENT AUTO 18.7 % (20.5-50.1); MONOCYTES PERCENT AUTO 6.9 % (2-8); NEUTROPHILS PERCENT AUTO 71.3 % (42.2-75.2); PLATELET COUNT,PLT 252 10^3/uL (150-450); RED BLOOD CELL COUNT 5.19 10^6/uL (4.2-5.4); WHITE BLOOD CELL COUNT,WBC 10.3 10^3/uL (5.0-10.0)
[2025-07-27 14:33] LABS: A/G RATIO 0.62; ALANINE AMINOTRANSFERASE,ALT 24 U/L (14-59); ASPARTATE AMNIOTRANSFERASE,AST 16 U/L (15-37); BILIRUBIN TOTAL 0.4 mg/dL (0.2-1.0); BLOOD UREA NITROGEN,BUN 18 mg/dL (7-18); CARBON DIOXIDE,CO2 27 mmol/L (21-32); CHLORIDE,CL 101 mmol/L (98-107); CREATININE 1.35 mg/dL (0.55-1.02); ESTIMATED GFR 47 mL/min (>=60); GLUCOSE RANDOM 346 mg/dL (70-99); POTASSIUM,K 4.7 mmol/L (3.5-5.1); PROTEIN TOTAL,TP 7.6 g/dL (6.4-8.2); SODIUM,NA 137 mmol/L (136-145)
[2025-07-27 15:32] VITALS: BP 147/72; PULSE 71
== END 2025-07-27 15:23 | disposition home or self-care (01) ==
LOC: DL.ED 13:34
DX: K52.9 Noninfective gastroenteritis and colitis, unspecified (principal); I10 Essential (primary) hypertension; J44.9 Chronic obstructive pulmonary disease, unspecified; E11.9 Type 2 diabetes mellitus without complications; Z86.16 Personal history of COVID-19; Z91.030 Bee allergy status; Z88.0 Allergy status to penicillin; Z88.8 Allergy status to other drugs, medicaments and biological substances; Z79.4 Long term (current) use of insulin; Z79.899 Other long term (current) drug therapy
CPT/HCPCS: 36415; 80053; 83690; 83735; 85025; 86140; 96360; 99284; A9270; J7030; 99283

== ENCOUNTER 2025-09-15 21:28 | Observation (INO) | payer MEDICARE, MEDICAID ==
[2025-09-15] MEDS: fentaNYL 100 MCG/2 ML SDV IVPUSH ONE (22:40)
[2025-09-15 22:43] LABS: BASOPHILS PERCENT AUTO 0.3 % (0.0-1.0); EOSINOPHILS PERCENT AUTO 1.5 % (1.0-3.0); LYMPHOCYTES PERCENT AUTO 11.9 % (20.5-50.1); MONOCYTES PERCENT AUTO 6.3 % (2-8); NEUTROPHILS PERCENT AUTO 80.0 % (42.2-75.2); PLATELET COUNT,PLT 284 10^3/uL (150-450); RED BLOOD CELL COUNT 4.75 10^6/uL (4.2-5.4); WHITE BLOOD CELL COUNT,WBC 13.1 10^3/uL (5.0-10.0)
[2025-09-15] MEDS: Ketorolac 30 MG/ML SDV IVPUSH ONE (22:43)
[2025-09-15 23:40] LABS: ALANINE AMINOTRANSFERASE,ALT 16.0 U/L (14-59); ASPARTATE AMNIOTRANSFERASE,AST 13.0 U/L (15-37); BILIRUBIN TOTAL 0.4 mg/dL (0.2-1.0); BLOOD UREA NITROGEN,BUN 15.0 mg/dL (7-18); CARBON DIOXIDE,CO2 26.0 mmol/L (21-32); CHLORIDE,CL 98.0 mmol/L (98-107); CREATININE 1.69 mg/dL (0.55-1.02); EST CRCL DRUG DOSING (CG) 40.69 mL/min; POTASSIUM,K 4.1 mmol/L (3.5-5.1); PROTEIN TOTAL,TP 7.4 g/dL (6.4-8.2); SODIUM,NA 133.0 mmol/L (136-145)
[2025-09-15 23:44] LABS: A/G RATIO 0.48; ESTIMATED GFR 36.0 mL/min (>=60); GLUCOSE RANDOM 486.0 mg/dL (70-99); LACTIC ACID 1.6 mmol/L (0.4-2.0)
[2025-09-15] MEDS ORDERED: 50% Dextrose in Water 50 ML Syringe IVPUSH PRN (23:47)
[2025-09-15] MEDS: Magnesium Sulfate 2 GM/50 mL 2 GM in Premix Bag 1 BAG IV ONE (23:57)
[2025-09-16] MEDS ORDERED: Metoprolol Tartrate 5 MG/5 ML SDV IVPUSH PRN (01:12)
[2025-09-16] MEDS ORDERED: hydrALAZINE 20 MG/ML SDV IVPUSH PRN (01:12)
[2025-09-16] MEDS ORDERED: Flumazenil 0.1 MG/ML 5 ML MDV IVPUSH PRN (01:16)
[2025-09-16] MEDS ORDERED: Sennosides/Docusate Sodium 50-8.6 MG Tab PO PRN (01:17)
[2025-09-16] MEDS ORDERED: Magnesium Hydroxide 400 MG/5 ML Susp 30 ML Cup PO PRN (01:17)
[2025-09-16] MEDS ORDERED: Ondansetron 4 MG/2 ML SDV IVPUSH PRN (01:17)
[2025-09-16] MEDS: LORazepam 2 MG/ML SDV IVPUSH ONE (01:30)
[2025-09-16] MEDS ORDERED: fentaNYL 100 MCG/2 ML SDV IVPUSH PRN (01:39)
[2025-09-16 01:42] LABS: KETONES,BLOOD NEGATIVE
[2025-09-16] MEDS: Ciprofloxacin in D5W 400 MG in Premix Bag 1 BAG IV ONE (02:04)
[2025-09-16] MEDS: Clindamycin in 0.9 % Sod Chlor 600 MG in Premix Bag 1 BAG IV SCH (06:00)
[2025-09-16 06:13] LABS: BASOPHILS PERCENT AUTO 0.2 % (0.0-1.0); EOSINOPHILS PERCENT AUTO 1.9 % (1.0-3.0); LYMPHOCYTES PERCENT AUTO 14.0 % (20.5-50.1); MONOCYTES PERCENT AUTO 9.8 % (2-8); NEUTROPHILS PERCENT AUTO 74.1 % (42.2-75.2); PLATELET COUNT,PLT 248 10^3/uL (150-450); RED BLOOD CELL COUNT 4.28 10^6/uL (4.2-5.4); WHITE BLOOD CELL COUNT,WBC 12.2 10^3/uL (5.0-10.0)
[2025-09-16 06:40] LABS: ALANINE AMINOTRANSFERASE,ALT 7.0 U/L (14-59); ASPARTATE AMNIOTRANSFERASE,AST 9.0 U/L (15-37); BILIRUBIN TOTAL 0.3 mg/dL (0.2-1.0); BLOOD UREA NITROGEN,BUN 13.0 mg/dL (7-18); CARBON DIOXIDE,CO2 25.0 mmol/L (21-32); CHLORIDE,CL 102.0 mmol/L (98-107); CREATININE 1.26 mg/dL (0.55-1.02); EST CRCL DRUG DOSING (CG) 54.58 mL/min; GLUCOSE RANDOM 134.0 mg/dL (70-99); POTASSIUM,K 3.3 mmol/L (3.5-5.1); PROTEIN TOTAL,TP 6.3 g/dL (6.4-8.2); SODIUM,NA 136.0 mmol/L (136-145)
[2025-09-16 06:43] LABS: A/G RATIO 0.47; ESTIMATED GFR 51.0 mL/min (>=60)
[2025-09-16] MEDS: Potassium Chloride 10 MEQ Tab.ER PO ONE (09:27)
[2025-09-16] MEDS: Saccharomyces Boulardii (Probiotic) 250 MG Cap PO SCH (09:27)
[2025-09-16] MEDS: Ciprofloxacin in D5W 400 MG in Premix Bag 1 BAG IV SCH (09:30)
[2025-09-16] MEDS: Insulin Glarg,Human.Rec.Analog 100 Unit/ML 10 ML Vial SUBCUT SCH (09:34)
[2025-09-16] MEDS: Bacitracin/Neomycin/Polymyxin B Oint 28.4 GM Tube TOP SCH (16:25)
[2025-09-17 06:37] LABS: BASOPHILS PERCENT AUTO 0.2 % (0.0-1.0); EOSINOPHILS PERCENT AUTO 2.9 % (1.0-3.0); LYMPHOCYTES PERCENT AUTO 16.9 % (20.5-50.1); MONOCYTES PERCENT AUTO 7.6 % (2-8); NEUTROPHILS PERCENT AUTO 72.4 % (42.2-75.2); PLATELET COUNT,PLT 275 10^3/uL (150-450); RED BLOOD CELL COUNT 4.10 10^6/uL (4.2-5.4); WHITE BLOOD CELL COUNT,WBC 9.4 10^3/uL (5.0-10.0)
[2025-09-17 07:03] LABS: ALANINE AMINOTRANSFERASE,ALT 14.0 U/L (14-59); ASPARTATE AMNIOTRANSFERASE,AST 18.0 U/L (15-37); BILIRUBIN TOTAL 0.3 mg/dL (0.2-1.0); BLOOD UREA NITROGEN,BUN 11.0 mg/dL (7-18); CARBON DIOXIDE,CO2 25.0 mmol/L (21-32); CHLORIDE,CL 101.0 mmol/L (98-107); CREATININE 1.22 mg/dL (0.55-1.02); EST CRCL DRUG DOSING (CG) 56.37 mL/min; GLUCOSE RANDOM 249.0 mg/dL (70-99); POTASSIUM,K 3.9 mmol/L (3.5-5.1); PROTEIN TOTAL,TP 6.4 g/dL (6.4-8.2)
[2025-09-17 07:11] LABS: SODIUM,NA 135.0 mmol/L (136-145)
[2025-09-17 07:20] LABS: A/G RATIO 0.42; ESTIMATED GFR 53.0 mL/min (>=60)
[2025-09-17] MEDS: fentaNYL 25 MCG/HR Transdermal Patch TRDERM SCH (09:59)
[2025-09-17] MEDS ORDERED: Pharmacy Consult Order SCH (10:15)
[2025-09-17] MEDS: Cholecalciferol (Vitamin D3) 25 MCG Tab PO ONE (12:17)
[2025-09-17] MEDS: Fluconazole/Normal Saline 100 MG in Premix Bag 1 BAG IV ONE (21:38)
[2025-09-17 23:14] LABS: APPEARANCE,URINE CLEAR (CLEAR); GLUCOSE,URINE 500 (NEGATIVE); OCCULT BLOOD,URINE MODERATE (NEGATIVE)
[2025-09-17 23:23] LABS: EPITHELIAL CELLS,URINE FEW /HPF (NOT SEEN)
[2025-09-18 06:39] LABS: BASOPHILS PERCENT AUTO 0.3 % (0.0-1.0); EOSINOPHILS PERCENT AUTO 3.7 % (1.0-3.0); LYMPHOCYTES PERCENT AUTO 21.0 % (20.5-50.1); MONOCYTES PERCENT AUTO 8.8 % (2-8); NEUTROPHILS PERCENT AUTO 66.2 % (42.2-75.2); PLATELET COUNT,PLT 251 10^3/uL (150-450); RED BLOOD CELL COUNT 4.12 10^6/uL (4.2-5.4); WHITE BLOOD CELL COUNT,WBC 7.3 10^3/uL (5.0-10.0)
[2025-09-18 07:01] LABS: ALANINE AMINOTRANSFERASE,ALT 21.0 U/L (14-59); ASPARTATE AMNIOTRANSFERASE,AST 18.0 U/L (15-37); BILIRUBIN TOTAL 0.2 mg/dL (0.2-1.0); BLOOD UREA NITROGEN,BUN 12.0 mg/dL (7-18); CARBON DIOXIDE,CO2 27.0 mmol/L (21-32); CHLORIDE,CL 101.0 mmol/L (98-107); CREATININE 1.3 mg/dL (0.55-1.02); EST CRCL DRUG DOSING (CG) 52.9 mL/min; GLUCOSE RANDOM 274.0 mg/dL (70-99); POTASSIUM,K 4.1 mmol/L (3.5-5.1); PROTEIN TOTAL,TP 6.6 g/dL (6.4-8.2); SODIUM,NA 136.0 mmol/L (136-145)
[2025-09-18 07:02] LABS: A/G RATIO 0.4; ESTIMATED GFR 49.0 mL/min (>=60)
[2025-09-18] MEDS: Cholecalciferol (Vitamin D3) 25 MCG Tab PO SCH (08:59)
[2025-09-18] MEDS: LORazepam 2 MG/ML SDV IVPUSH ONE (09:46)
[2025-09-18] MEDS: diphenhydrAMINE 50 MG/ML SDV IVPUSH ONE (09:50)
[2025-09-18] MEDS: Magnesium Sulfate 2 GM/50 mL 2 GM in Premix Bag 1 BAG IV ONE (10:00)
[2025-09-18 12:11] VITALS: BP 148/69; PULSE 62
== END 2025-09-18 13:00 | disposition home or self-care (01) ==
LOC: DL.ED 21:28 → DL.MS 09-16 00:35
PROVIDERS: ADMIT Internal Medicine; ATTEND Internal Medicine
DX: E11.628 Type 2 diabetes mellitus with other skin complications (principal); N61.1 Abscess of the breast and nipple; D72.829 Elevated white blood cell count, unspecified; E87.1 Hypo-osmolality and hyponatremia; E11.65 Type 2 diabetes mellitus with hyperglycemia; E46 Unspecified protein-calorie malnutrition; E66.812 Obesity, class 2; I12.9 Hypertensive chronic kidney disease with stage 1 through stage 4 chronic kidney disease, or unspecified chronic kidney disease; E11.22 Type 2 diabetes mellitus with diabetic chronic kidney disease; N18.30 Chronic kidney disease, stage 3 unspecified; R53.1 Weakness; G89.4 Chronic pain syndrome; F11.20 Opioid dependence, uncomplicated; E55.9 Vitamin D deficiency, unspecified; T40.415A Adverse effect of fentanyl or fentanyl analogs, initial encounter; B37.31 Acute candidiasis of vulva and vagina; L73.2 Hidradenitis suppurativa; F17.210 Nicotine dependence, cigarettes, uncomplicated; Z68.38 Body mass index [BMI] 38.0-38.9, adult; Z79.4 Long term (current) use of insulin; Z88.8 Allergy status to other drugs, medicaments and biological substances; Z88.0 Allergy status to penicillin; Z91.030 Bee allergy status; Z79.899 Other long term (current) drug therapy
CPT/HCPCS: 36415; 80053; 80202; 81001; 82009; 82306; 82947; 83036; 83605; 83735; 85025; 86140; 87040; 87070; 87205; 87210; A9270; J0692; J0737; J0744; J1200; J1308; J1450; J1815; J2060; J2270; J3010; J3373; J3375; J3475; J7030; J7040; 99222; 99232; 99238